=== PATIENT | female | born 1995 | race Caucasian/White ===

== ENCOUNTER 2018-08-02 21:28 | Emergency (ER) | payer OTHER ==
[2018-08-02] MEDS ORDERED: ONDANSETRON 4 MG/2 ML VIAL IVP STA (21:33)
[2018-08-02] MEDS ORDERED: FAMOTIDINE 20 MG/2 ML VIAL IV STA (21:33)
[2018-08-02] MEDS ORDERED: diphenhydrAMINE 50 MG/ML 1 ML VIAL IVP STA (21:33)
[2018-08-02] MEDS ORDERED: methylPREDNISolone SOD SUCCI 125 MG/2 ML VIAL IV STA (21:33)
[2018-08-02] MEDS ORDERED: EPINEPHrine 1 MG/ML 1 ML AMP IM STA (21:34)
[2018-08-02] MEDS ORDERED: ALBUTEROL NEBULIZED 2.5 MG/3 ML INHALATION STA (21:36)
--- NOTE | 2018-08-02 21:47 | ED ---
Allergic Reaction HPI - General Stated complaint: Severe allergic reaction Time Seen by Provider: 08/02/18 21:32 - History of Present Illness Initial Comments: Angeles is a 23-year-old female with a known ALLERGY to coconut who presents the emergency department today for evaluation of ALLERGIC reaction. Patient reports that this evening she ate at [employer] she then returned home and began to feel ill. She reports feeling like her throat is closing I she can't breathe and she's having repeated episodes of nausea and vomiting. Patient reports she took oral Benadryl and then came to the emergency department for further evaluation. Patient does have an EpiPen at home but is so she chose not to attempt to use it. - Related Data Home Medications Medication Instructions Recorded Confirmed Albuterol Inhaler [Ventolin Hfa 2 puff INHALATION RT-Q6H 08/02/18 08/02/18 Inhaler] Albuterol Nebulized [Ventolin 2.5 mg INHALATION RT-Q4H PRN 08/02/18 08/02/18 Nebulized] Ascorbic Acid [Vitamin C] 500 mg PO DAILY 08/02/18 08/02/18 Calcium Carbonate [Tums] 1,000 mg PO TID 08/02/18 08/02/18 Cetirizine HCl 10 mg PO DAILY 08/02/18 08/02/18 Cholecalciferol [Vitamin D3] 1,000 unit PO DAILY 08/02/18 08/02/18 Cyanocobalamin (Vitamin B-12) 1,000 mcg PO DAILY 08/02/18 08/02/18 [Vitamin B-12] Fluticasone Nasal [place] [Flonase 1 spray EA NOSTRIL DAILY 08/02/18 08/02/18 Nasal [place]] Ipratropium Nebulized [Atrovent 0.5 mg INHALATION RT-Q6H PRN 08/02/18 08/02/18 Nebulized 0.2 MG/ML] Montelukast [Singulair] 10 mg PO DAILY 08/02/18 08/02/18 Vilazodone HCl [Viibryd] 20 mg PO BID 08/02/18 08/02/18 Previous Rx's Medication Instructions Recorded EPINEPHrine [Epipen 2-Jeffery] 0.3 mg IM ONCE PRN #1 pack 08/03/18 Allergies Allergy/AdvReac Type Severity Reaction Status Date / Time ciprofloxacin [From Cipro] Allergy Rash/Hives Verified 08/02/18 21:50 coconut Allergy Anaphylaxis Verified 08/02/18 21:50 ibuprofen [From Motrin] Allergy Anaphylaxis Verified 08/02/18 21:50 Iodinated Contrast- Oral and Allergy Unknown Verified 08/02/18 22:26 IV Dye latex Allergy Unknown Verified 08/02/18 22:26 mold Allergy Unknown Verified 08/02/18 22:26 Mushroom Allergy Rash/Hives Verified 08/02/18 21:50 pollen extracts Allergy Unknown Verified 08/02/18 22:26 tomato Allergy Anaphylaxis Verified 08/02/18 21:50 Review of Systems ROS Statement: Those systems with pertinent positive or pertinent negative responses have been documented in the HPI. ROS Other: All systems not noted in ROS Statement are negative. General Exam - General Exam Comments Initial Comments: Physical Exam GENERAL: Flushed appearance actively vomiting patient in moderate distress HENT: Normocephalic, Atraumatic. EYES: PERRL, EOMI PULMONARY: Tachypnea with no wheezing CARDIOVASCULAR: Tachycardia ABDOMEN: Soft and nontender with normal bowel sounds. SKIN: Flushed, sweaty : Deferred NEUROLOGIC: Patient is alert and oriented x3. Moving all extremities spontaneously MUSCULOSKELETAL: Normal extremities with adequate strength and full range of motion. No lower extremity swelling or edema. No calf tenderness. PSYCHIATRIC: Situational anxiety Course Vital Signs 08/02/18 08/02/18 08/02/18 21:44 22:05 22:21 Temperature 98.9 F Pulse Rate 138 H 108 H Respiratory 26 H 26 H 22 Rate Blood Pressure 127/100 133/60 O2 Sat by Pulse 100 99 Oximetry 08/02/18 08/03/18 23:15 00:28 Temperature Pulse Rate 103 H 112 H Respiratory 22 20 Rate Blood Pressure O2 Sat by Pulse 98 99 Oximetry - Reevaluation(s) Reevaluation #1: Patient with recurrent episodes of nausea and vomiting, IV Reglan was ordered 08/03/18 00:19 Medical Decision Making - Medical Decision Making The patient was seen and evaluated immediately upon arrival to the emergency department this is a patient with a known ALLERGY having an ALLERGIC reaction she's having multiple bouts of vomiting her skin is flushed she's taken up neck and tachycardic reports she feels as though she can't breathe there is no obviou s wheezing. Treatment for anaphylaxis was ordered including sign Medrol, Pepcid, Benadryl and epinephrine. Patient had taken Benadryl prior to coming in however she continues to vomit and I have suspicion that she was unable to absorb any significant dose of this medication. Patient rested comfortably for approximately 2-1/2 hours before having recurrent episode of nausea and vomiting at which time she was given Reglan. Patient was observed for an additional 2 hours at which time she rested comfortably hemodynamically stable with no further episodes of tachycardia and no further nausea or vomiting. At this time patient is comfortable and eager for discharge home. Disposition Clinical Impression: Allergic reaction Disposition: HOME SELF-CARE Condition: Stable Instructions (If sedation given, give patient instructions): Anaphylaxis (ED) Prescriptions: EPINEPHrine [Epipen 2-Jeffery] 0.3 mg IM ONCE PRN #1 pack PRN Reason: Anaphylaxis Is patient prescribed a controlled substance at d/c from ED?: No Referrals: None,Stated [Primary Care Provider] - 1-2 days
[2018-08-03] MEDS ORDERED: METOCLOPRAMIDE 5 MG/ML 2 ML VIAL IVP STA (00:19)
[2018-08-03 02:17] VITALS: BP 130/65; PULSE 78; RESP 18; TEMP 97.9
== END 2018-08-03 02:17 | disposition home or self-care (01) ==
LOC: EC 21:28
DX: R11.2 Nausea with vomiting, unspecified (principal); T78.1XXA Other adverse food reactions, not elsewhere classified, initial encounter; R00.0 Tachycardia, unspecified; Z79.899 Other long term (current) drug therapy; Z88.1 Allergy status to other antibiotic agents; Z88.6 Allergy status to analgesic agent; Z91.041 Radiographic dye allergy status; Z91.018 Allergy to other foods; Z91.040 Latex allergy status; Z91.048 Other nonmedicinal substance allergy status; Z53.8 Procedure and treatment not carried out for other reasons
CPT/HCPCS: 99283; 96374; 96375 ×4; 96372; J0171; J1200; J2765; J2930; J2405

== ENCOUNTER 2018-11-25 20:32 | Emergency (ER) | payer OTHER ==
[2018-11-25 20:44] VITALS: TEMP 99.1
[2018-11-25] MEDS ORDERED: ALBUTEROL NEBULIZED 2.5 MG/3 ML INHALATION STA ×3 (21:06→23:03)
[2018-11-25] MEDS ORDERED: SODIUM CHLORIDE 0.9% 1,000 ML IV ONE ×2 (21:06→21:57)
[2018-11-25] MEDS ORDERED: PROMETHAZINE 25 MG TAB PO STA (21:10)
--- NOTE | 2018-11-25 21:15 | ED ---
General Adult HPI - General Chief complaint: Shortness of Breath Stated complaint: SOB, chest pain, headache Time Seen by Provider: 11/25/18 20:50 Source: patient Mode of arrival: ambulatory Limitations: no limitations - History of Present Illness Initial comments: This patient is 23-year-old woman who complains of a constellation of upper respiratory symptoms that have been going on she states for 16 days now. Patient states initially she had started with some upper respiratory congestion and rhinorrhea. She states that about a week ago she noticed she was feeling like there was chest tightness and she was having some yellow to green sputum with cough. She has seen her implementation engineer and her primary physician. She states that she saw the primary physician today and started azithromycin but that was only taken earlier today. She is also using her home inhalers and Tylenol for the intermittent fevers that she is had. Patient is tolerating fluids but states that her appetite is decreased. The review of systems is otherwise negative. Onset/Timin -: days(s) Location: head, chest Quality: other (Pressure) Consistency: constant Improves with: none Worsens with: none Associated Symptoms: cough, fever/chills, headaches, shortness of breath Treatments Prior to Arrival: other (Azithromycin, albuterol, Tylenol) - Related Data Home Medications Medication Instructions Recorded Confirmed Albuterol Inhaler [Ventolin Hfa 2 puff INHALATION RT-Q6H PRN 08/02/18 11/25/18 Inhaler] Albuterol Nebulized [Ventolin 2.5 mg INHALATION RT-Q4H PRN 08/02/18 11/25/18 Nebulized] Cetirizine HCl 10 mg PO DAILY 08/02/18 11/25/18 Previous Rx's Medication Instructions Recorded Albuterol Inhaler [Ventolin Hfa 1 - 2 puff INHALATION Q6HR PRN #1 11/26/18 Inhaler] inhaler Promethazine [Phenergan] 25 mg PO Q6HR PRN #12 tablet 11/26/18 predniSONE 20 mg PO BID #8 tab 11/26/18 Allergies Allergy/AdvReac Type Severity Reaction Status Date / Time banana Allergy Nausea & Verified 11/25/18 20:51 Vomiting ciprofloxacin [From Cipro] Allergy Rash/Hives Verified 11/25/18 20:51 coconut Allergy Anaphylaxis Verified 11/25/18 20:51 ibuprofen [From Motrin] Allergy Anaphylaxis Verified 11/25/18 20:51 Iodinated Contrast- Oral and Allergy Unknown Verified 11/25/18 20:51 IV Dye latex Allergy Unknown Verified 11/25/18 20:51 mold Allergy Unknown Verified 11/25/18 20:51 Mushroom Allergy Rash/Hives Verified 11/25/18 20:51 orange Allergy Nausea & Verified 11/25/18 20:51 Vomiting pollen extracts Allergy Unknown Verified 11/25/18 20:51 tomato Allergy Anaphylaxis Verified 11/25/18 20:51 cephalexin [From Keflex] AdvReac Rash/Hives Verified 11/25/18 20:51 Review of Systems ROS Statement: Those systems with pertinent positive or pertinent negative responses have been documented in the HPI. ROS Other: All systems not noted in ROS Statement are negative. Constitutional: Reports: fever. Denies: chills ENT: Reports: ear pain, throat pain, congestion. Denies: hearing loss Respiratory: Reports: cough, dyspnea, wheezes. Denies: hemoptysis Cardiovascular: Denies: chest pain, palpitations, edema, syncope Gastrointestinal: Denies: abdominal pain, nausea, vomiting, constipation Genitourinary: Denies: dysuria, hematuria Musculoskeletal: Denies: back pain Skin: Denies: rash Neurological: Reports: headache. Denies: weakness, numbness, paresthesias Past Medical History Additional Past Medical History / Comment(s): bilateral breast reduction History of Any Multi-Drug Resistant Organisms: None Reported Past Surgical History: Ear Surgery Past Psychological History: Bipolar Smoking Status: Never smoker Past Alcohol Use History: None Reported Past Drug Use History: None Reported General Exam Limitations: no limitations General appearance: alert, in no apparent distress Head exam: Present: atraumatic, normocephalic Eye exam: Present: normal appearance. Absent: scleral icterus, conjunctival injection ENT exam: Present: normal oropharynx (Cobblestoning), TM's normal bilaterally, normal external ear exam Neck exam: Present: normal inspection, full ROM, lymphadenopathy. Absent: tenderness, meningismus Respiratory exam: Present: wheezes, chest wall tenderness. Absent: respiratory distress, rales, rhonchi, stridor, accessory muscle use, decreased breath sounds, prolonged expiratory Cardiovascular Exam: Present: regular rate, normal rhythm, normal heart sounds. Absent: systolic murmur, diastolic murmur, rubs, gallop GI/Abdominal exam: Present: soft. Absent: distended, tenderness, guarding, rebound, rigid Extremities exam: Present: normal inspection, normal capillary refill. Absent: pedal edema, calf tenderness Back exam: Present: normal inspection. Absent: CVA tenderness (R), CVA tenderness (L) Neurological exam: Present: alert Skin exam: Present: warm, dry, intact, normal color. Absent: rash Course Vital Signs 11/25/18 11/25/18 11/25/18 20:42 21:29 21:38 Temperature 99.1 F Pulse Rate 120 H 113 H 115 H Respiratory 28 H 20 20 Rate Blood Pressure 145/86 O2 Sat by Pulse 98 Oximetry 11/25/18 11/25/18 11/25/18 22:15 22:24 23:20 Temperature Pulse Rate 88 90 105 H Respiratory 20 20 20 Rate Blood Pressure O2 Sat by Pulse Oximetry 11/25/18 11/26/18 23:31 01:02 Temperature Pulse Rate 100 94 Respiratory 20 18 Rate Blood Pressure 118/64 O2 Sat by Pulse 97 Oximetry Medical Decision Making - Lab Data Result diagrams: 11/25/18 21:30 11/25/18 21:30 Lab Results 11/25/18 11/25/18 Range/Units 21:30 21:30 WBC 14.8 H (3.8-10.6) k/uL RBC 4.46 (3.80-5.40) m/uL Hgb 12.7 (11.4-16.0) gm/dL Hct 37.0 (34.0-46.0) % MCV 82.9 (80.0-100.0) fL MCH 28.6 (25.0-35.0) pg MCHC 34.5 (31.0-37.0) g/dL RDW 12.7 (11.5-15.5) % Plt Count 305 (150-450) k/uL Neutrophils % 68 % Lymphocytes % 24 % Monocytes % 4 % Eosinophils % 4 % Basophils % 0 % Neutrophils # 10.0 H (1.3-7.7) k/uL Lymphocytes # 3.5 (1.0-4.8) k/uL Monocytes # 0.5 (0-1.0) k/uL Eosinophils # 0.5 (0-0.7) k/uL Basophils # 0.1 (0-0.2) k/uL Sodium 137 (137-145) mmol/L Potassium 3.4 L (3.5-5.1) mmol/L Chloride 107 (98-107) mmol/L Carbon Dioxide 19 L (22-30) mmol/L Anion Gap 11 mmol/L BUN 10 (7-17) mg/dL Creatinine 0.53 (0.52-1.04) mg/dL Est GFR (CKD-EPI)AfAm >90 (>60 ml/min/1.73 sqM) Est GFR (CKD-EPI)NonAf >90 (>60 ml/min/1.73 sqM) Glucose 115 H (74-99) mg/dL Calcium 9.3 (8.4-10.2) mg/dL Total Bilirubin 0.4 (0.2-1.3) mg/dL AST 15 (14-36) U/L ALT 14 (9-52) U/L Alkaline Phosphatase 65 (38-126) U/L Total Protein 6.8 (6.3-8.2) g/dL Albumin 3.8 (3.5-5.0) g/dL Disposition Clinical Impression: Acute bronchitis Disposition: HOME SELF-CARE Condition: Good Instructions (If sedation given, give patient instructions): Acute Bronchitis (ED) Prescriptions: Promethazine [Phenergan] 25 mg PO Q6HR PRN #12 tablet PRN Reason: Vomiting predniSONE 20 mg PO BID #8 tab Albuterol Inhaler [Ventolin Hfa Inhaler] 1 - 2 puff INHALATION Q6HR PRN #1 inhaler PRN Reason: Wheezing Is patient prescribed a controlled substance at d/c from ED?: No Referrals: Arron Khan MD [Primary Care Provider] - 1-2 days
[2018-11-25 21:39] LABS: Basophils # (A) 0.1 k/uL (0-0.2); Basophils % (A) 0 %; Eosinophils # (A) 0.5 k/uL (0-0.7); Eosinophils % (A) 4 %; HGB 12.7 gm/dL (11.4-16.0); Lymphocytes # (A) 3.5 k/uL (1.0-4.8); Lymphocytes % (A) 24 %; MCH 28.6 pg (25.0-35.0); MCHC 34.5 g/dL (31.0-37.0); MCV 82.9 fL (80.0-100.0); Mean Platelet Volume 7.2; Monocytes # (A) 0.5 k/uL (0-1.0); Monocytes % (A) 4 %; Neutrophils % (A) 68 %; Platelet Count 305 k/uL (150-450); RBC 4.46 m/uL (3.80-5.40); RDW 12.7 % (11.5-15.5); WBC 14.8 k/uL (3.8-10.6)
[2018-11-25 21:50] LABS: ALT 14 U/L (9-52); AST 15 U/L (14-36); African American GFR (CKD) >90 (>60 ml/min/1.73 sqM); Albumin 3.8 g/dL (3.5-5.0); Alkaline Phosphatase 65 U/L (38-126); Anion Gap 11 mmol/L; Blood Urea Nitrogen 10 mg/dL (7-17); Calcium 9.3 mg/dL (8.4-10.2); Carbon Dioxide 19 mmol/L (22-30); Chloride 107 mmol/L (98-107); Glucose 115 mg/dL (74-99); Potassium 3.4 mmol/L (3.5-5.1); Sodium 137 mmol/L (137-145); Total Bilirubin 0.4 mg/dL (0.2-1.3); Total Protein 6.8 g/dL (6.3-8.2)
[2018-11-25] MEDS ORDERED: ACETAMINOPHEN TAB 325 MG TAB PO STA (21:56)
[2018-11-25] MEDS ORDERED: predniSONE 20 MG TAB PO STA (23:03)
[2018-11-26 03:14] VITALS: BP 110/74; PULSE 72; RESP 16
== END 2018-11-26 03:14 | disposition home or self-care (01) ==
LOC: EC 20:32
DX: J20.9 Acute bronchitis, unspecified (principal); Z88.1 Allergy status to other antibiotic agents; Z88.6 Allergy status to analgesic agent; Z91.018 Allergy to other foods; Z91.040 Latex allergy status; Z91.041 Radiographic dye allergy status; Z91.048 Other nonmedicinal substance allergy status
CPT/HCPCS: 36415; 94640 ×2; 80053; 85025; 99285; 96360; 96361; J7512

== ENCOUNTER 2019-01-02 18:44 | Inpatient (IN) | payer MEDICAID, OTHER ==
[2019-01-02 19:32] LABS: Glucose,Whole Blood 108 mg/dL (75-99)
[2019-01-02] MEDS ORDERED: PRENATAL VIT-IRON-FOLIC ACID 1 EACH CAP PO STA (20:08)
--- NOTE | 2019-01-02 20:15 | ED ---
General Adult HPI - General Chief complaint: Psychiatric Symptoms Stated complaint: Suicidal Time Seen by Provider: 01/02/19 19:10 Source: patient Mode of arrival: ambulatory Limitations: no limitations - History of Present Illness Initial comments: Dictation was produced using [employer] dictation software. please excuse any grammatical, word or spelling errors. Chief Complaint: 23-year-old female with past medical history of bipolar disease presents with suicidal attempt and ideation. History of Present Illness: 23-year-old female she is allegedly 18 weeks . She reports that today she was feeling very suicidal. She is depressed with the fact that she is and that her pain is not one venous well. Patient states she has a difficult time taking care of herself and does not want to live anymore. She had a scalpel and made multiple superficial cuts to her wrist. She was initially given a card her face however she did not have encouraged do so. Patient has had suicidal ideation in the past. She has been evaluated in the hospital for suicide before as a minor. The ROS documented in this emergency department record has been reviewed and confirmed by me. Those systems with pertinent positive or negative responses have been documented in the HPI. All other systems are other negative and/or noncontributory. PHYSICAL EXAM: General Impression: Alert and oriented x3, not in acute distress HEENT: Normocephalic atraumatic, extra-ocular movements intact, pupils equal and reactive to light bilaterally, mucous membranes moist. Cardiovascular: Heart regular rate and rhythm, S1&S2 audible, no murmurs, rubs or gallops Chest: Lungs clear to auscultation bilaterally, no rhonchi, no wheeze, no rales Abdomen: Bowel sounds present, abdomen soft, non-tender, non-distended, no organomegaly Musculoskeletal: Pulses present and equal in all extremities, no peripheral edema Motor: no focal deficits noted Neurological: CN II-XII grossly intact, no focal motor or sensory deficits noted Skin: Superficial abrasions to the right posterior forearm Psych: Anxious ED course:-year-old female presents with suicidal ideation and suicidal attempt. She has multiple superficial abrasions to the right posterior lateral forearm. These all appear to be very superficial not requiring laceration repair. Lacerations measure approximately 3 cm. There are approximately 5 superficial cuts. Vital signs upon arrival shows heart rate of 129, respiratory signs within acceptable limits. Patient states she is 18 weeks . She has establish [employer] care. She takes vitamins. Patient was evaluated by EPS recommended inpatient admission to inpatient psychiatry. - Related Data Home Medications Medication Instructions Recorded Confirmed Albuterol Inhaler [Ventolin Hfa 2 puff INHALATION RT-Q6H PRN 08/02/18 01/02/19 Inhaler] Albuterol Nebulized [Ventolin 2.5 mg INHALATION RT-Q4H PRN 08/02/18 01/02/19 Nebulized] Multivitamins, Thera [Multivitamin 1 tab PO DAILY 01/02/19 01/02/19 (formulary)] Cetirizine HCl 10 mg PO DAILY 01/03/19 01/03/19 Fluticasone Nasal [place] [Flonase 1 spray NASAL BID 01/03/19 01/03/19 Nasal [place]] Allergies Allergy/AdvReac Type Severity Reaction Status Date / Time banana Allergy Nausea & Verified 01/02/19 19:57 Vomiting ciprofloxacin [From Cipro] Allergy Rash/Hives Verified 01/02/19 19:57 coconut Allergy Anaphylaxis Verified 01/02/19 19:57 ibuprofen [From Motrin] Allergy Anaphylaxis Verified 01/02/19 19:57 Iodinated Contrast- Oral and Allergy Unknown Verified 01/02/19 19:57 IV Dye latex Allergy Unknown Verified 01/02/19 19:57 mold Allergy Unknown Verified 01/02/19 19:57 Mushroom Allergy Rash/Hives Verified 01/02/19 19:57 orange Allergy Nausea & Verified 01/02/19 19:57 Vomiting pollen extracts Allergy Unknown Verified 01/02/19 19:57 tomato Allergy Anaphylaxis Verified 01/02/19 19:57 cephalexin [From Keflex] AdvReac Rash/Hives Verified 01/02/19 19:57 Review of Systems ROS Statement: Those systems with pertinent positive or pertinent negative responses have been documented in the HPI. ROS Other: All systems not noted in ROS Statement are negative. Past Medical History Additional Past Medical History / Comment(s): gestational diabetes History of Any Multi-Drug Resistant Organisms: None Reported Past Surgical History: Ear Surgery Additional Past Surgical History / Comment(s): bilat breast reduction Past Psychological History: Bipolar Smoking Status: Never smoker Past Alcohol Use History: None Reported Past Drug Use History: None Reported General Exam Limitations: no limitations Course Vital Signs 01/02/19 01/02/19 18:53 19:35 Temperature 98.9 F Pulse Rate 129 H 121 H Respiratory 18 20 Rate Blood Pressure 137/91 127/80 O2 Sat by Pulse 99 98 Oximetry Medical Decision Making - Lab Data Lab Results 01/02/19 01/02/19 01/02/19 Range/Units 10:33 10:33 19:30 POC Glucose (mg/dL) 108 H (75-99) mg/dL POC Glu Track Repair Supervisor ID Sarah Beth León Urine Color Yellow Urine Appearance Turbid H (Clear) Urine pH 6.0 (5.0-8.0) Ur Specific [place] 1.013 (1.001-1.035) Urine Protein Trace H (Negative) Urine Glucose (UA) Negative (Negative) Urine Ketones Negative (Negative) Urine Blood Trace H (Negative) Urine Nitrite Negative (Negative) Urine Bilirubin Negative (Negative) Urine Urobilinogen <2.0 (<2.0) mg/dL Ur Leukocyte Esterase Large H (Negative) Urine RBC 9 H (0-5) /hpf Urine WBC 144 H (0-5) /hpf Ur Squamous Epith Cells 32 H (0-4) /hpf Urine Mucus Occasional H (None) /hpf Urine HCG, Qual Detected (Not Detectd) Disposition Clinical Impression: Suicidal ideation Disposition: ADMITTED IP TO THIS [facility] Condition: Fair Decision Time: 02:29
[2019-01-02] MEDS ORDERED: ACETAMINOPHEN TAB 325 MG TAB PO STA (21:41)
[2019-01-02 22:48] LABS: Appearance,Urine Turbid (Clear); Bilirubin,Urine Negative (Negative); Blood,Urine Trace (Negative); Color,Urine Yellow; Glucose,Urine (UA) Negative (Negative); Ketones,Urine Negative (Negative); Leukocyte Esterase,Urine Large (Negative); Mucus,Urine Occasional /hpf; Nitrite,Urine Negative (Negative); Protein,Urine Trace (Negative); RBC,Urine 9 /hpf (0-5); Specific Gravity,Urine 1.013 (1.001-1.035); Squamous Epithelial Cell,Urine 32 /hpf (0-4); Urobilinogen,Urine <2.0 mg/dL (<2.0); WBC,Urine 144 /hpf (0-5)
[2019-01-03] MEDS: ALBUTEROL INHALER 60 PUFF/8 GM INHALER INHALATION PRN ×3 (00:20→20:19)
[2019-01-03 03:55] LABS: Amphetamine Screen,Urine Not Detected (NotDetected); Barbiturate Screen,Urine Not Detected (NotDetected); Benzodiazepines Screen,Urine Not Detected (NotDetected); Cocaine Screen,Urine Not Detected (NotDetected); Methadone Screen, Urine Not Detected (NotDetected); Opiate Screen,Urine Not Detected (NotDetected); Oxycodone Screen, Urine Not Detected (NotDetected); Phencyclidine Screen,Urine Not Detected (NotDetected); Tricyclic Antidepressant,Urine Not Detected (NotDetected); Urn Cannabinoid Scrn Not Detected (NotDetected)
[2019-01-03 08:09] LABS: Glucose,Whole Blood 116 mg/dL (75-99)
[2019-01-03 08:10] LABS: Basophils # (A) 0.1 k/uL (0-0.2); Basophils % (A) 1 %; Eosinophils # (A) 0.5 k/uL (0-0.7); Eosinophils % (A) 3 %; HCT 34.2 % (34.0-46.0); HGB 11.7 gm/dL (11.4-16.0); Lymphocytes # (A) 2.6 k/uL (1.0-4.8); Lymphocytes % (A) 19 %; MCH 28.7 pg (25.0-35.0); MCHC 34.2 g/dL (31.0-37.0); MCV 83.9 fL (80.0-100.0); Mean Platelet Volume 7.4; Monocytes # (A) 0.6 k/uL (0-1.0); Monocytes % (A) 4 %; Neutrophils # (A) 10.2 k/uL (1.3-7.7); Neutrophils % (A) 73 %; Platelet Count 252 k/uL (150-450); RBC 4.07 m/uL (3.80-5.40); RDW 13.2 % (11.5-15.5); WBC 14.1 k/uL (3.8-10.6)
[2019-01-03] MEDS: ACETAMINOPHEN TAB 325 MG TAB PO PRN ×3 (08:14→21:38)
[2019-01-03 08:17] LABS: ALT 14 U/L (9-52); AST 16 U/L (14-36); African American GFR (CKD) >90 (>60 ml/min/1.73 sqM); Albumin 3.5 g/dL (3.5-5.0); Alkaline Phosphatase 62 U/L (38-126); Anion Gap 9 mmol/L; Blood Urea Nitrogen 7 mg/dL (7-17); Carbon Dioxide 26 mmol/L (22-30); Chloride 104 mmol/L (98-107); Cholesterol 159 mg/dL (<200); Glucose 104 mg/dL (74-99); HDL Cholesterol 37 mg/dL (40-60); LDL Cholesterol,Calculated 81 mg/dL (0-99); Potassium 3.9 mmol/L (3.5-5.1); Sodium 139 mmol/L (137-145); Total Bilirubin 0.3 mg/dL (0.2-1.3); Total Protein 6.4 g/dL (6.3-8.2); Triglycerides 206 mg/dL (<150)
[2019-01-03 10:00] LABS: Glucose,Whole Blood 143 mg/dL (75-99)
[2019-01-03 10:32] VITALS: BMI 33.5
[2019-01-03] MEDS: ALBUTEROL NEBULIZED 2.5 MG/3 ML INHALATION PRN (12:19)
[2019-01-03 12:34] LABS: Glucose,Whole Blood 139 mg/dL (75-99)
[2019-01-03] MEDS: PRENATAL VIT-IRON-FOLIC ACID 1 EACH CAP PO SCH (12:35)
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
[2019-01-03] MEDS ORDERED: FLUTICASONE 50MCG/SPRAY NASAL 16GM NASAL SCH (13:45)
[2019-01-03] MEDS ORDERED: MULTIVITAMINS, THERA 1 EACH TAB PO SCH (13:45)
[2019-01-03 13:59] LABS: Hemoglobin A1C 5.7 % (4.0-6.0)
[2019-01-03] MEDS: LORATADINE 10 MG TAB PO SCH (14:53)
[2019-01-03] MEDS: SERTRALINE 50 MG TAB PO SCH (14:53)
[2019-01-03 15:35] LABS: Glucose,Whole Blood 109 mg/dL (75-99)
[2019-01-03 17:44] LABS: Glucose,Whole Blood 110 mg/dL (75-99)
[2019-01-03 20:17] LABS: Glucose,Whole Blood 111 mg/dL (75-99)
[2019-01-03] MEDS: QUEtiapine 25 MG TAB PO SCH (21:37)
[2019-01-04] MEDS: ALBUTEROL INHALER 60 PUFF/8 GM INHALER INHALATION PRN (07:02)
--- NOTE | 2019-01-04 07:10 | P.OBCN ---
History of Present Illness Consult date: 01/04/19 Reason for consult: early problem Chief complaint: Depression with suicidal ideation at 19 weeks gestation History of present illness: This is a 23-year-old 4 para 0030 woman with an estimated due date of 06/06/2019 who is admitted to the psychiatric unit for suicidal ideations and self. She has a history of bipolar disorder and self discontinued her medications early in her . Since that time she reports she's been feeling worse and worse as the weeks go by. Her current living situation is difficult which she believes is the source of her current ongoing stress. The has been essentially otherwise uncomplicated. She had an elevated hemoglobin A1c of 5.8 and has been monitoring home blood sugars to determine if she is gestational diabetic. She is currently on no specific diet or treatment for gestational diabetes, only monitoring and data collection at this time. She complains of intermittent nausea and vomiting throughout the thus far. She denies bleeding, abdominal pain, dysuria. Currently she reports feeling "stressed" however denies specific thoughts of self-harm at this moment. She has been started on Seroquel and Zoloft, both of which are category C. She has a Ventolin inhaler for asthma. Review of Systems Constitutional: Denies chills, Denies fever Cardiovascular: Denies chest pain, Denies rapid heart beat, Denies shortness of breath Respiratory: Denies cough Gastrointestinal: Reports nausea, Reports vomiting, Denies abdominal pain, Denies constipation, Denies diarrhea, Denies heartburn Genitourinary: Reports , Denies abnormal vaginal bleeding, Denies dysuria, Denies flank pain, Denies hematuria, Denies urgency, Denies urinary frequency Musculoskeletal: Reports low back pain Integumentary: Denies rash Psychiatric: Reports anxiety, Reports depression, Reports sleep disturbances Endocrine: Denies high blood sugars Past Medical History Past Medical History: Asthma Additional Past Medical History / Comment(s): gestational diabetes History of Any Multi-Drug Resistant Organisms: None Reported Past Surgical History: Ear Surgery Additional Past Surgical History / Comment(s): bilat breast reduction Past Anesthesia/Blood Transfusion Reactions: No Reported Reaction Past Psychological History: Bipolar Smoking Status: Never smoker Past Alcohol Use History: None Reported Past Drug Use History: None Reported Medications and Allergies Home Medications Medication Instructions Recorded Confirmed Type Albuterol Inhaler [Ventolin Hfa 2 puff INHALATION RT-Q6H PRN 08/02/18 01/02/19 History Inhaler] Albuterol Nebulized [Ventolin 2.5 mg INHALATION RT-Q4H PRN 08/02/18 01/02/19 History Nebulized] Multivitamins, Thera [Multivitamin 1 tab PO DAILY 01/02/19 01/02/19 History (formulary)] Cetirizine HCl 10 mg PO DAILY 01/03/19 01/03/19 History Fluticasone Nasal [place] [Flonase 1 spray NASAL BID 01/03/19 01/03/19 History Nasal [place]] Allergies Allergy/AdvReac Type Severity Reaction Status Date / Time banana Allergy Nausea & Verified 01/02/19 19:57 Vomiting ciprofloxacin [From Cipro] Allergy Rash/Hives Verified 01/02/19 19:57 coconut Allergy Anaphylaxis Verified 01/02/19 19:57 ibuprofen [From Motrin] Allergy Anaphylaxis Verified 01/02/19 19:57 Iodinated Contrast- Oral and Allergy Unknown Verified 01/02/19 19:57 IV Dye latex Allergy Unknown Verified 01/02/19 19:57 mold Allergy Unknown Verified 01/02/19 19:57 Mushroom Allergy Rash/Hives Verified 01/02/19 19:57 orange Allergy Nausea & Verified 01/02/19 19:57 Vomiting pollen extracts Allergy Unknown Verified 01/02/19 19:57 tomato Allergy Anaphylaxis Verified 01/02/19 19:57 cephalexin [From Keflex] AdvReac Rash/Hives Verified 01/02/19 19:57 Exam Vital Signs Temp Pulse Pulse Resp BP 01/04/19 06:36 98.3 F 108 H 18 141/76 01/03/19 12:29 100 01/03/19 12:22 96 Intake and Output 01/03/19 01/03/19 01/04/19 14:59 22:59 06:59 Other: Weight 78.018 kg Entire encounter was spent in discussion, no specific physical examination is performed. Mood and affect appeared appropriate during her conversation. Results Result Diagrams: 01/03/19 07:12 01/03/19 07:12 Abnormal Lab Results - Last 24 Hours (Table) 01/03/19 01/03/19 01/03/19 Range/Units 07:12 07:12 08:07 WBC 14.1 H (3.8-10.6) k/uL Neutrophils # 10.2 H (1.3-7.7) k/uL Glucose 104 H (74-99) mg/dL POC Glucose (mg/dL) 116 H (75-99) mg/dL Triglycerides 206 H (<150) mg/dL HDL Cholesterol 37 L (40-60) mg/dL 01/03/19 01/03/19 01/03/19 Range/Units 09:58 12:32 15:34 WBC (3.8-10.6) k/uL Neutrophils # (1.3-7.7) k/uL Glucose (74-99) mg/dL POC Glucose (mg/dL) 143 H 139 H 109 H (75-99) mg/dL Triglycerides (<150) mg/dL HDL Cholesterol (40-60) mg/dL 01/03/19 01/03/19 Range/Units 17:43 20:14 WBC (3.8-10.6) k/uL Neutrophils # (1.3-7.7) k/uL Glucose (74-99) mg/dL POC Glucose (mg/dL) 110 H 111 H (75-99) mg/dL Triglycerides (<150) mg/dL HDL Cholesterol (40-60) mg/dL Assessment and Plan (1) with 14 to 19 completed weeks gestation Current Visit: Yes Status: Acute Code(s): UOD2519 - SNOMED Code(s): 28137242 (2) Nausea and vomiting during Current Visit: Yes Status: Acute Code(s): O21.9 - VOMITING OF , UNSPECIFIED SNOMED Code(s): 83076288 (3) Suicidal ideation Current Visit: Yes Status: Acute Code(s): R45.851 - SUICIDAL IDEATIONS SNOMED Code(s): 3734052 Plan: This is a 23-year-old 4 para 0030 woman with an estimated due date of 06/06/2021 is admitted for suicidal ideation at 19 weeks gestation. She is pre- viable. Current medications are category C which is appropriate. You can consider adding Zoloft 4 mg po every 8 hours when necessary for nausea. Her urinalysis is positive however I would await urine culture results before treating with antibiotics as the patient is asymptomatic at this time. She does not carry a formal diagnosis of gestational diabetes and a regular diet is appropriate. She is simply monitoring home blood sugars as she is been unable to tolerate typical glucose tolerance testing used in . After she collects this information for a couple weeks will be determined whether she meets criteria for gestational diabetes. Notify us if any random blood sugars are greater than 200. She is scheduled for an obstetric visit and ultrasound on 01/06/2019 in the office. Thank you for involving us in her care. Should she have any further questions regarding her management please do not hesitate to contact our service otherwise we will plan on seeing her as scheduled on the .
--- NOTE | 2019-01-04 07:11 | P.CONS ---
History of Present Illness - Reason for Consult Consult date: 01/03/19 Medical management of asthma - Chief Complaint Suicidal attempt - History of Present Illness 23-year-old female with history of asthma and seasonal ALLERGIES, she is allegedly 18 weeks , presented to ED feeling very suicidal. She is depressed with the fact that she is and that her pain is not one venous well. Patient states she has a difficult time taking care of herself and does not want to live anymore. She had a scalpel and made multiple superficial cuts to her wrist. She was initially given a card her face however she did not have encouraged do so. Patient has had suicidal ideation in the past. She has been evaluated in the hospital for suicide before as a minor. Patient is admitted to mental health unit for further treatment and evaluation of bipolar disorder and suicidal attempt and ideation Review of Systems Constitutional: Denies chills, Denies fever Eyes: denies blurred vision, denies loss of vision Ears, nose, mouth and throat: Denies epistaxis Cardiovascular: Denies chest pain Respiratory: Denies cough with sputum Gastrointestinal: Denies change in bowel habits, Denies nausea, Denies vomiting Genitourinary: Denies dysuria, Denies hematuria Musculoskeletal: Denies muscle cramps Integumentary: Denies color changes Neurological: Denies ataxia, Denies change in speech Past Medical History Past Medical History: Asthma Additional Past Medical History / Comment(s): gestational diabetes History of Any Multi-Drug Resistant Organisms: None Reported Past Surgical History: Ear Surgery Additional Past Surgical History / Comment(s): bilat breast reduction Past Anesthesia/Blood Transfusion Reactions: No Reported Reaction Past Psychological History: Bipolar Smoking Status: Never smoker Past Alcohol Use History: None Reported Past Drug Use History: None Reported Medications and Allergies Home Medications Medication Instructions Recorded Confirmed Type Albuterol Inhaler [Ventolin Hfa 2 puff INHALATION RT-Q6H PRN 08/02/18 01/02/19 History Inhaler] Albuterol Nebulized [Ventolin 2.5 mg INHALATION RT-Q4H PRN 08/02/18 01/02/19 History Nebulized] Multivitamins, Thera [Multivitamin 1 tab PO DAILY 01/02/19 01/02/19 History (formulary)] Cetirizine HCl 10 mg PO DAILY 01/03/19 01/03/19 History Fluticasone Nasal [place] [Flonase 1 spray NASAL BID 01/03/19 01/03/19 History Nasal [place]] Allergies Allergy/AdvReac Type Severity Reaction Status Date / Time banana Allergy Nausea & Verified 01/02/19 19:57 Vomiting ciprofloxacin [From Cipro] Allergy Rash/Hives Verified 01/02/19 19:57 coconut Allergy Anaphylaxis Verified 01/02/19 19:57 ibuprofen [From Motrin] Allergy Anaphylaxis Verified 01/02/19 19:57 Iodinated Contrast- Oral and Allergy Unknown Verified 01/02/19 19:57 IV Dye latex Allergy Unknown Verified 01/02/19 19:57 mold Allergy Unknown Verified 01/02/19 19:57 Mushroom Allergy Rash/Hives Verified 01/02/19 19:57 orange Allergy Nausea & Verified 01/02/19 19:57 Vomiting pollen extracts Allergy Unknown Verified 01/02/19 19:57 tomato Allergy Anaphylaxis Verified 01/02/19 19:57 cephalexin [From Keflex] AdvReac Rash/Hives Verified 01/02/19 19:57 Physical Exam Vitals: Vital Signs Temp Pulse Pulse Resp BP BP Pulse Ox 01/03/19 06:46 98.9 F 94 16 129/72 01/03/19 01:52 98.9 F 94 16 129/72 98 01/03/19 00:25 99.1 F 106 H 20 133/84 01/02/19 22:40 98.5 F 98 18 130/81 96 01/02/19 19:35 121 H 20 127/80 98 01/02/19 18:53 98.9 F 129 H 18 137/91 99 Intake and Output 01/02/19 01/03/19 01/03/19 22:59 06:59 14:59 Other: Weight 78.018 kg General Impression: Alert and oriented x3, not in acute distress HEENT: Normocephalic atraumatic, extra-ocular movements intact, pupils equal and reactive to light bilaterally, mucous membranes moist. Cardiovascular: Heart regular rate and rhythm, S1&S2 audible, no murmurs, rubs or gallops Chest: Lungs clear to auscultation bilaterally, no rhonchi, no wheeze, no rales Abdomen: Bowel sounds present, abdomen soft, non-tender, non-distended, no o rganomegaly Musculoskeletal: Pulses present and equal in all extremities, no peripheral edema Motor: no focal deficits noted Neurological: CN II-XII grossly intact, no focal motor or sensory deficits noted Skin: Superficial abrasions to the right posterior forearm Psych: Anxious Results CBC & Chem 7: 01/03/19 07:12 01/03/19 07:12 Labs: Abnormal Lab Results - Last 24 Hours (Table) 01/02/19 01/02/19 01/03/19 Range/Units 10:33 19:30 07:12 WBC 14.1 H (3.8-10.6) k/uL Neutrophils # 10.2 H (1.3-7.7) k/uL Glucose (74-99) mg/dL POC Glucose (mg/dL) 108 H (75-99) mg/dL Triglycerides (<150) mg/dL HDL Cholesterol (40-60) mg/dL Urine Appearance Turbid H (Clear) Urine Protein Trace H (Negative) Urine Blood Trace H (Negative) Ur Leukocyte Esterase Large H (Negative) Urine RBC 9 H (0-5) /hpf Urine WBC 144 H (0-5) /hpf Ur Squamous Epith Cells 32 H (0-4) /hpf Urine Mucus Occasional H (None) /hpf 01/03/19 01/03/19 01/03/19 Range/Units 07:12 08:07 09:58 WBC (3.8-10.6) k/uL Neutrophils # (1.3-7.7) k/uL Glucose 104 H (74-99) mg/dL POC Glucose (mg/dL) 116 H 143 H (75-99) mg/dL Triglycerides 206 H (<150) mg/dL HDL Cholesterol 37 L (40-60) mg/dL Urine Appearance (Clear) Urine Protein (Negative) Urine Blood (Negative) Ur Leukocyte Esterase (Negative) Urine RBC (0-5) /hpf Urine WBC (0-5) /hpf Ur Squamous Epith Cells (0-4) /hpf Urine Mucus (None) /hpf Assessment and Plan Assessment: 1. Asthma; we will continue with albuterol inhaler 2 puffs 4 times a day when necessary 2. Seasonal ALLERGY; reorder Flonase 1 spray both nostrils twice a day; patient requesting to continue with home dose of Zyrtec- ordered 3. Bipolar disorder/suicidal ideation and attempt; your management 4. ; per pattient she,s in second trimester; recommend RESEARCH EPIDEMIOLOGIST consult 5. DVT prophylaxis; early ambulation CODE STATUS; full code Time with Patient: Greater than 30
[2019-01-04 07:48] LABS: Glucose,Whole Blood 106 mg/dL (75-99)
[2019-01-04 09:31] LABS: Glucose,Whole Blood 128 mg/dL (75-99)
[2019-01-04] MEDS: ALBUTEROL NEBULIZED 2.5 MG/3 ML INHALATION PRN ×2 (11:38→23:51)
[2019-01-04] MEDS: SERTRALINE 50 MG TAB PO SCH (12:23)
[2019-01-04] MEDS: LORATADINE 10 MG TAB PO SCH (12:23)
[2019-01-04] MEDS: PRENATAL VIT-IRON-FOLIC ACID 1 EACH CAP PO SCH (12:23)
--- NOTE | 2019-01-04 12:23 | P.PN ---
Progress Note - Text Progress Note Date: 01/04/19 Interval History: Patient was seen in the hallways today and was agreeable to seek the underwriter. She states that she is doing better with regard to her anxiety and also her sleep. However she did state that last night there was commotion on the unit which woke her up and made her feel unsafe. She states that she is going to groups and learning more Coping skills. Patient presented papers with written requests for assistance with housing and [facility] along with financial matters that she is to take care of. She also asked about having her dog classified as a "therapy dog". At this time patient denies any suicidal or homical ideations, intent or plan. Patient denies any auditory, visual hallucinations and denies any paranoia or delusions. Patient denies any side effects from the medications and has been compliant with meds. Mental Status Exam: General Appearance: Patient appears to be stated age is alert, directable and cooperative. Patient appears to be less anxious today. Behavior: Patient is seated without any agitated behavior. Speech: Patient's speech is fluent and nonpressured. [place]. Mood/Affect: Patient reports their mood is depressed affect is congruent and constricted. Suicidality/Homicidality: Patient denies having any suicidal or homicidal ideation intent or plan. Perceptions: Patient denies any auditory or visual hallucinations. Though content/process: There is no evidence of any delusional thought content and thought process is linear and goal-directed. Memory and concentration: AOX3, grossly intact for the purposes of this session. Judgment and insight: Poor, improving mildly Assessment Bipolar disorder, mixed episode History of PTSD Intellectual disability unspecified Plan: -Patient continues to meet criteria for inpatient psychiatric admission for symptom stabilization and safety. The patient signed adult voluntary form and medication consent and is placed in the patient's chart. -Appreciate MERCHANDISING COORDINATOR recommendations and evaluation of patient. Her current medications are category C and this was explained to patient. Added in Zofran 4 mg every 8 hours when necessary for nausea as per MERCHANDISING COORDINATOR recommendations. As per recommendations will not treat asymptomatic bacteriuria and urine at this time. We'll continue monitoring blood glucose for gestational diabetes -Medications: Continue with Seroquel 25 mg daily at bedtime for mood stabilization/insomnia. We'll also continue Zoloft 50 mg for anxiety/mood. -NRT -not needed at this time as patient does not smoke. -SW on board for discharge planning. Patient does have a MERCHANDISING COORDINATOR appointment on 01/06/2019 for ultrasound and follow-up. Patient needs assisting with housing.
[2019-01-04 12:29] LABS: Glucose,Whole Blood 117 mg/dL (75-99)
[2019-01-04] MEDS: ACETAMINOPHEN TAB 325 MG TAB PO PRN (13:31)
[2019-01-04 14:56] LABS: Glucose,Whole Blood 135 mg/dL (75-99)
[2019-01-04 17:34] LABS: Glucose,Whole Blood 82 mg/dL (75-99)
[2019-01-04] MEDS: ONDANSETRON 4 MG TAB PO PRN (18:13)
[2019-01-04 20:11] LABS: Glucose,Whole Blood 115 mg/dL (75-99)
[2019-01-04 22:10] LABS: Glucose,Whole Blood 111 mg/dL (75-99)
[2019-01-04] MEDS: QUEtiapine 25 MG TAB PO SCH (22:40)
[2019-01-05 07:43] LABS: Glucose,Whole Blood 113 mg/dL (75-99)
[2019-01-05] MEDS: ALBUTEROL INHALER 60 PUFF/8 GM INHALER INHALATION PRN (09:01)
[2019-01-05] MEDS: ACETAMINOPHEN TAB 325 MG TAB PO PRN (10:32)
[2019-01-05 10:33] LABS: Glucose,Whole Blood 123 mg/dL (75-99)
--- NOTE | 2019-01-05 12:13 | P.PN ---
Progress Note - Text Progress Note Date: 01/05/19 Interval History: Patient was seen in group today today and was agreeable to seek the account underwriter. She states that she is continuing to have anxiety and claimed to be irritable because her sister claimed that she was not able to calm to the hospital to drop her off close and visit her which she did not like. She also mentioned that another patient on the unit who was recently discharged did not leave her the pack of cards that she really wanted and claims that "she broke her promise". However she did state that she slept better last night however requested to take her Seroquel at 10:00 instead of 9 PM as it makes her tired within a few minutes. She states that she is going to groups and learning more Coping skills. Patient asked brighter several times about her appointment tomorrow and how she wanted to visit her fianc in [facility]. At this time patient denies any suicidal or homical ideations, intent or plan. Patient denies any auditory, visual hallucinations and denies any paranoia or delusions. Patient denies any side effects from the medications and has been compliant with meds. Mental Status Exam: General Appearance: Patient appears to be stated age is alert, directable and cooperative. Patient appears to be anxious Behavior: Patient is seated without any agitated behavior. Speech: Patient's speech is fluent and nonpressured. [place]. Mood/Affect: Patient reports their mood is improved affect is congruent and constricted. Suicidality/Homicidality: Patient denies having any suicidal or homicidal ideation intent or plan. Perceptions: Patient denies any auditory or visual hallucinations. Though content/process: There is no evidence of any delusional thought content and thought process is linear and goal-directed. Memory and concentration: AOX3, grossly intact for the purposes of this session. Judgment and insight: Poor, improving mildly Assessment Bipolar disorder, mixed episode History of PTSD Intellectual disability unspecified Plan: -Patient continues to meet criteria for inpatient psychiatric admission for symptom stabilization and safety. The patient signed adult voluntary form and medication consent and is placed in the patient's chart. -Appreciate STREETSWEEPER OPERATOR recommendations and evaluation of patient. Her current medications are category C and this was explained to patient. Continue with Zofran 4 mg every 8 hours when necessary for nausea as per STREETSWEEPER OPERATOR recommendations. As per recommendations will not treat asymptomatic bacteriuria and urine at this time. We'll continue monitoring blood glucose for gestational diabetes -Medications: Continue with Seroquel 25 mg daily at bedtime for mood stabilization/insomnia. Increased Zoloft 100 mg for anxiety/mood. -NRT -not needed at this time as patient does not smoke. -SW on board for discharge planning. Patient does have a STREETSWEEPER OPERATOR appointment on 01/06/2019 for ultrasound and follow-up, this will need to be rescheduled. Patient needs assisting with housing. Likely discharge within 2-3 days.
[2019-01-05] MEDS: SERTRALINE 50 MG TAB PO SCH (12:20)
[2019-01-05] MEDS: LORATADINE 10 MG TAB PO SCH (12:21)
[2019-01-05] MEDS: PRENATAL VIT-IRON-FOLIC ACID 1 EACH CAP PO SCH (12:21)
[2019-01-05 12:33] LABS: Glucose,Whole Blood 115 mg/dL (75-99)
[2019-01-05 15:27] LABS: Glucose,Whole Blood 120 mg/dL (75-99)
[2019-01-05 17:50] LABS: Glucose,Whole Blood 91 mg/dL (75-99)
[2019-01-05 20:39] LABS: Glucose,Whole Blood 105 mg/dL (75-99)
[2019-01-05] MEDS: QUEtiapine 25 MG TAB PO SCH (23:05)
[2019-01-06] MEDS: ALBUTEROL NEBULIZED 2.5 MG/3 ML INHALATION PRN ×2 (00:42→11:50)
[2019-01-06 06:39] VITALS: BP 110/62; RESP 20; TEMP 98.8
[2019-01-06 07:50] LABS: Glucose,Whole Blood 117 mg/dL (75-99)
[2019-01-06] MEDS: LORATADINE 10 MG TAB PO SCH ×3 (08:41→16:30)
[2019-01-06] MEDS: PRENATAL VIT-IRON-FOLIC ACID 1 EACH CAP PO SCH ×3 (08:41→16:30)
[2019-01-06] MEDS: ONDANSETRON 4 MG TAB PO PRN ×2 (08:41→16:31)
[2019-01-06] MEDS: SERTRALINE 100 MG TAB PO SCH ×3 (08:41→16:30)
[2019-01-06 10:35] LABS: Glucose,Whole Blood 116 mg/dL (75-99)
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
[2019-01-06 12:40] LABS: Glucose,Whole Blood 106 mg/dL (75-99)
[2019-01-06 15:25] LABS: Glucose,Whole Blood 126 mg/dL (75-99)
[2019-01-06 17:41] LABS: Glucose,Whole Blood 93 mg/dL (75-99)
[2019-01-06] MEDS: ACETAMINOPHEN TAB 325 MG TAB PO PRN (19:59)
[2019-01-06 20:06] LABS: Glucose,Whole Blood 120 mg/dL (75-99)
[2019-01-06 22:47] LABS: Glucose,Whole Blood 97 mg/dL (75-99)
[2019-01-06] MEDS: QUEtiapine 25 MG TAB PO SCH (23:07)
[2019-01-07] MEDS: ALBUTEROL NEBULIZED 2.5 MG/3 ML INHALATION PRN (00:36)
[2019-01-07 00:51] VITALS: PULSE 72
[2019-01-07 07:46] LABS: Glucose,Whole Blood 105 mg/dL (75-99)
[2019-01-07] MEDS: ONDANSETRON 4 MG TAB PO PRN (08:11)
[2019-01-07] MEDS: ACETAMINOPHEN TAB 325 MG TAB PO PRN (08:11)
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
[2019-01-07] MEDS: PRENATAL VIT-IRON-FOLIC ACID 1 EACH CAP PO SCH (10:48)
[2019-01-07] MEDS: LORATADINE 10 MG TAB PO SCH (10:48)
[2019-01-07] MEDS: SERTRALINE 100 MG TAB PO SCH (10:48)
[2019-01-07 12:04] LABS: Glucose,Whole Blood 116 mg/dL (75-99)
== END 2019-01-07 12:42 | disposition home or self-care (01) | DRG 832 ==
LOC: EC 18:44 → 3MHU 22:02
PROVIDERS: ADMIT Psychiatry & Neurology Psychiatry; ATTEND Psychiatry & Neurology Psychiatry
DX: O99.342 Other mental disorders complicating pregnancy, second trimester (principal); F31.60 Bipolar disorder, current episode mixed, unspecified; O99.112 Other diseases of the blood and blood-forming organs and certain disorders involving the immune mechanism complicating pregnancy, second trimester; R45.851 Suicidal ideations; O99.352 Diseases of the nervous system complicating pregnancy, second trimester; O21.9 Vomiting of pregnancy, unspecified; F43.10 Post-traumatic stress disorder, unspecified; O99.512 Diseases of the respiratory system complicating pregnancy, second trimester; J45.909 Unspecified asthma, uncomplicated; D72.829 Elevated white blood cell count, unspecified; G47.00 Insomnia, unspecified; F79 Unspecified intellectual disabilities; G43.909 Migraine, unspecified, not intractable, without status migrainosus; R82.71 Bacteriuria; O75.89 Other specified complications of labor and delivery; F41.9 Anxiety disorder, unspecified; Z3A.19 19 weeks gestation of pregnancy; Z59.0 Homelessness; Z62.810 Personal history of physical and sexual abuse in childhood; Z79.899 Other long term (current) drug therapy; Z88.6 Allergy status to analgesic agent; Z88.1 Allergy status to other antibiotic agents; Z91.041 Radiographic dye allergy status; Z91.040 Latex allergy status; Z91.018 Allergy to other foods; Z81.8 Family history of other mental and behavioral disorders; Z81.1 Family history of alcohol abuse and dependence
CPT/HCPCS: 36415; 80053; 80061; 80306; 81001; 81025; 82075; 83036; 84443; 85025; 94640; 99285

== ENCOUNTER → 2019-02-28 | Outpatient (CLI) | payer OTHER ==
[2019-02-28 12:35] LABS: HCT 35.9 % (34.0-46.0); HGB 11.7 gm/dL (11.4-16.0); MCH 28.3 pg (25.0-35.0); MCHC 32.7 g/dL (31.0-37.0); MCV 86.7 fL (80.0-100.0); Mean Platelet Volume 7.3; Platelet Count 247 k/uL (150-450); RBC 4.14 m/uL (3.80-5.40); RDW 13.2 % (11.5-15.5); WBC 14.8 k/uL (3.8-10.6)
== END | disposition home or self-care (01) ==
LOC: LABWHC1 10:45
PROVIDERS: ATTEND Obstetrics & Gynecology Obstetrics
DX: Z36.9 Encounter for antenatal screening, unspecified (principal)
CPT/HCPCS: 36415; 82950; 85027

== ENCOUNTER 2019-03-02 13:49 | Outpatient (CLI) | payer OTHER ==
[2019-03-02] MEDS ORDERED: LACTATED RINGERS 1,000 ML IV SCH (15:15)
[2019-03-02 15:27] LABS: Glucose,Whole Blood 98 mg/dL (75-99)
[2019-03-02 15:41] VITALS: BP 135/71; PULSE 100; RESP 18; TEMP 97.8
[2019-03-02 15:56] LABS: ALT <6 U/L (9-52); AST 32 U/L (14-36); African American GFR (CKD) >90 (>60 ml/min/1.73 sqM); Albumin 3.9 g/dL (3.5-5.0); Alkaline Phosphatase 66 U/L (38-126); Anion Gap 9 mmol/L; Blood Urea Nitrogen 8 mg/dL (7-17); Calcium 9.2 mg/dL (8.4-10.2); Carbon Dioxide 20 mmol/L (22-30); Chloride 107 mmol/L (98-107); Glucose 89 mg/dL (74-99); Non-African American GFR(CKD) >90 (>60 ml/min/1.73 sqM); Sodium 136 mmol/L (137-145); Total Bilirubin 0.7 mg/dL (0.2-1.3); Total Protein 7.1 g/dL (6.3-8.2)
[2019-03-02 15:57] LABS: Potassium 4.6 mmol/L (3.5-5.1)
[2019-03-02 16:01] LABS: Amorphous Sediment,Urine Rare /hpf; Appearance,Urine Cloudy (Clear); Bilirubin,Urine Negative (Negative); Blood,Urine Negative (Negative); Color,Urine Yellow; Glucose,Urine (UA) Negative (Negative); Ketones,Urine Negative (Negative); Leukocyte Esterase,Urine Large (Negative); Mucus,Urine Rare /hpf; Nitrite,Urine Negative (Negative); PH, Urine 6.5 (5.0-8.0); Protein,Urine Negative (Negative); RBC,Urine 1 /hpf (0-5); Specific Gravity,Urine 1.019 (1.001-1.035); Squamous Epithelial Cell,Urine 3 /hpf (0-4); Urobilinogen,Urine <2.0 mg/dL (<2.0); WBC,Urine 8 /hpf (0-5)
--- NOTE | 2019-03-16 16:37 | P.MSEPDOC ---
Presenting Problems - Arrival Data Date of Arrival on Unit: 03/02/19 Time of Arrival on Unit: 13:50 Mode of Transport: Ambulatory - Complaint OB-Reason for Admission/Chief Complaint: Other Comment: charley horses in left leg, sacrum in low back and upper arms. Medical History - Information : 4 Para: 0 Term: 0 : 0 Abortions: Spontaneous or Elective: 3 Number of Living Children: 0 - Gestational Age Gestational Age by AMADEO (wks/days): 25 Weeks and 4 Days - History Complications: GDM Review of Systems - Review of Systems Constitutional: Recent weight loss Breast: No problems ENT: No problems Cardiovascular: No problems Respiratory: No problems Gastrointestinal: No problems Genitourinary: No problems Musculoskeletal: No problems Neurological: No problems Skin: No problems Comment: hx of gest diabetes (diet controlled), anemia, asthma, anxiety and depression, allergies to latex. lost 18 pounds this . Vital Signs - Temperature Temperature: 97.8 F Temperature Source: Temporal Artery Scan - Pulse Right Brachial Pulse Rate: 100 Pulse Assessment Method: Automatic Cuff - Respirations Respiratory Rate: 18 Oxygen Delivery Method: Room Air O2 Sat by Pulse Oximetry: 97 - Blood Pressure Right Arm Blood Pressure: 135/71 Blood Pressure Mean: 92 Blood Pressure Source: Automatic Cuff Medical Screen Scoring (Pre) - Cervical Exam Dilation: Exam Deferred - Uterine Contractions Frequency: N/A Duration: N/A Intensity: N/A - Maternal Vital Signs Maternal Temperature: N/A Maternal Blood Pressure: N/A Signs of Preeclampsia: N/A Maternal Respirations: N/A - Maternal Trauma Maternal Trauma: N/A - Assessment - Baby A Baseline FHR: 140 Heart Rate - NICHD Category: Category I (Normal) = 0 NST: Reactive Position: N/A Station: N/A - Total Score - Baby A Total Score - Baby A: 0 - Total Score - Baby B Total Score - Baby B: 0 - Total Score - Baby C Total Score - Baby C: 0 - Level of Risk - Baby A Level of Risk - Baby A: Low (0-5) - Level of Risk - Baby B Level of Risk - Baby B: Low (0-5) - Level of Risk - Baby C Level of Risk - Baby C: Low (0-5) Physician Notification (Pre) - Physician Notified Spoke With: pablo New Order Received: Yes - Notification Comment Comment: discharge home. to keep sched appt on 03/10 at office. to work at po hydration and nutrition intake for self and health. verb underst. Medical Screen Scoring (Post) - Cervical Exam Dilation: Exam Deferred - Uterine Contractions Frequency: N/A Duration: N/A Intensity: N/A - Maternal Vital Signs Maternal Temperature: N/A Maternal Blood Pressure: N/A Signs of Preeclampsia: N/A Maternal Respirations: N/A - Pain Assessment Pain Scale Used: Numeric (1 - 10) Pain Intensity: 5 - Maternal Trauma Maternal Trauma: N/A - Assessment - Baby A Heart Rate: 135 Heart Rate - NICHD Category: Category I (Normal) = 0 NST: Reactive Position: N/A Station: N/A - Total Score Total Score - Baby A: 0 Total Score - Baby B: 0 Total Score - Baby C: 0 - Post Treatment Level of Risk Post Treatment Level of Risk - Baby A: Low (0-5) Post Treatment Level of Risk - Baby B: Low (0-5) Post Treatment Level of Risk - Baby C: Low (0-5) Physician Notification (Post) - Physician Notified Physician Notified Date: 03/02/19 Physician Notified Time: 17:10 Spoke With: pablo New Order Received: Yes - Notification Comment Comment: discharge home Disposition - Disposition OB Disposition: Discharge to home Discharge Date: 03/02/19 Discharge Time: 17:25 I agree with the RN Medical Screening Exam: Yes Risk & Benefit of care provided described in d/c instruction: Yes Diagnosis: PAIN, UNSPECIFIED
== END 2019-03-02 17:25 | disposition home or self-care (01) ==
LOC: FBPOP 13:49
PROVIDERS: ATTEND Obstetrics & Gynecology
DX: O99.89 Other specified diseases and conditions complicating pregnancy, childbirth and the puerperium (principal); R52 Pain, unspecified; Z3A.25 25 weeks gestation of pregnancy
CPT/HCPCS: 96360; 96361; 80053; 81001; G0463; 99214

== ENCOUNTER 2019-05-11 10:38 | Observation (INO) | payer OTHER ==
[2019-05-11] MEDS ORDERED: ONDANSETRON 4 MG/2 ML VIAL IVP STA (11:23)
[2019-05-11] MEDS: LACTATED RINGERS 1,000 ML IV SCH ×3 (11:45→13:36)
[2019-05-11 12:48] LABS: Basophils # (A) 0.1 k/uL (0-0.2); Basophils % (A) 0 %; Eosinophils % (A) 0 %; HCT 36.6 % (34.0-46.0); HGB 11.9 gm/dL (11.4-16.0); Lymphocytes # (A) 2.1 k/uL (1.0-4.8); Lymphocytes % (A) 13 %; MCH 26.4 pg (25.0-35.0); MCHC 32.4 g/dL (31.0-37.0); MCV 81.5 fL (80.0-100.0); Mean Platelet Volume 9.2; Monocytes # (A) 0.6 k/uL (0-1.0); Monocytes % (A) 3 %; Neutrophils # (A) 13.6 k/uL (1.3-7.7); Neutrophils % (A) 83 %; Platelet Count 351 k/uL (150-450); RBC 4.49 m/uL (3.80-5.40); RDW 13.4 % (11.5-15.5); WBC 16.5 k/uL (3.8-10.6)
[2019-05-11 12:58] LABS: ALT 10 U/L (4-34); AST 19 U/L (14-36); African American GFR (CKD) >90 (>60 ml/min/1.73 sqM); Albumin 3.4 g/dL (3.5-5.0); Alkaline Phosphatase 203 U/L (38-126); Anion Gap 11 mmol/L; Blood Urea Nitrogen 7 mg/dL (7-17); Calcium 9.1 mg/dL (8.4-10.2); Carbon Dioxide 20 mmol/L (22-30); Chloride 107 mmol/L (98-107); Glucose 94 mg/dL (74-99); Non-African American GFR(CKD) >90 (>60 ml/min/1.73 sqM); Potassium 4.3 mmol/L (3.5-5.1); Sodium 138 mmol/L (137-145); Total Bilirubin 0.7 mg/dL (0.2-1.3); Total Protein 6.6 g/dL (6.3-8.2)
[2019-05-11 14:24] LABS: Appearance,Urine Cloudy (Clear); Bilirubin,Urine Negative (Negative); Blood,Urine Negative (Negative); Color,Urine Yellow; Glucose,Urine (UA) Negative (Negative); Ketones,Urine 3+ (Negative); Leukocyte Esterase,Urine Negative (Negative); Mucus,Urine Occasional /hpf; Nitrite,Urine Negative (Negative); Protein,Urine Trace (Negative); Specific Gravity,Urine 1.017 (1.001-1.035); Squamous Epithelial Cell,Urine 10 /hpf (0-4); Urobilinogen,Urine <2.0 mg/dL (<2.0); WBC,Urine 2 /hpf (0-5)
[2019-05-11] MEDS ORDERED: PROMETHAZINE SUPPOSITORY 25 MG SUPP RECTAL STA (15:49)
[2019-05-11] MEDS ORDERED: LACTATED RINGERS 1,000 ML IV SCH (17:00)
[2019-05-11] MEDS ORDERED: ONDANSETRON 4 MG/2 ML VIAL IVP PRN (17:19)
[2019-05-11] MEDS ORDERED: ACETAMINOPHEN IV (For NPO) 1,000 MG in EMPTY BAG 1 BAG IVPB ONE (17:30)
[2019-05-11 17:52] VITALS: BP 112/58; PULSE 64; RESP 16; TEMP 97.8
--- NOTE | 2019-05-12 04:23 | P.HPOB ---
History of Present Illness H&P Date: 05/12/19 Chief Complaint: IUP at 30 6/7 weeks, nausea vomiting diarrhea. This 24-year-old 1 para 0 at 36-2/7 weeks presented to labor and delivery with complaints of persistent nausea and vomiting. Patient states that she was unable to keep anything down for the last almost 24 hours. Patient was noted to be significantly dehydrated. Patient also noted some diarrhea and s tates she was placed on amoxicillin recently for upper respiratory infection. Patient notes good movement she denies contractions. Patient denies fevers chills Review of Systems Constitutional: Reports fatigue, Reports fever, Denies chills Ears, nose, mouth and throat: Reports headache Cardiovascular: Reports leg edema Gastrointestinal: Reports diarrhea, Reports nausea, Reports vomiting, Denies constipation Genitourinary: Reports Past Medical History Past Medical History: Asthma, Blood Disorder, Cancer, Eye Disorder, Hearing Disorder / Deafness, Pneumonia, Skin Disorder Additional Past Medical History / Comment(s): Lymph nodes cancer, bilateral breast reduction, 1 round of chemo and 1 round of radiation 2014. Hx Hypoglycemia. Hard of hearing mildly. Ezcema. History of Any Multi-Drug Resistant Organisms: MRSA Date of last positivie culture/infection: 2014 MDRO Source:: chest Past Surgical History: Breast Surgery, Ear Surgery, Orthopedic Surgery Additional Past Surgical History / Comment(s): Bilateral breast reduction, 7 ear surgeries, left leg sutured, dental surgeries, left retinal surgery, right foot surgery with pin in heel. Past Anesthesia/Blood Transfusion Reactions: Postoperative Nausea & Vomiting (PONV) Past Psychological History: Bipolar Additional Psychological History / Comment(s): (High functioning) autism. Smoking Status: Never smoker Past Alcohol Use History: None Reported Additional Past Alcohol Use History / Comment(s): None Past Drug Use History: None Reported Medications and Allergies Home Medications Medication Instructions Recorded Confirmed Type Albuterol Inhaler [Ventolin Hfa 2 puff INHALATION RT-Q6H PRN 08/02/18 05/11/19 History Inhaler] Albuterol Nebulized [Ventolin 2.5 mg INHALATION RT-Q4H PRN 08/02/18 05/11/19 History Nebulized] Cetirizine HCl 10 mg PO DAILY MDD 10 mg 01/03/19 05/11/19 History Ondansetron [Zofran] 4 mg PO Q8HR PRN 14 Days tab 01/07/19 05/11/19 Rx Bum-Stcb-Dxmfp Acid 1 each PO DAILY MDD 1 tab 03/02/19 05/11/19 History [-U Capsule (formulary)] Amoxicillin 1 tab PO DAILY 05/11/19 05/11/19 History Allergies Allergy/AdvReac Type Severity Reaction Status Date / Time banana Allergy Nausea & Verified 01/02/19 19:57 Vomiting ciprofloxacin [From Cipro] Allergy Rash/Hives Verified 01/02/19 19:57 coconut Allergy Anaphylaxis Verified 01/02/19 19:57 ibuprofen [From Motrin] Allergy Anaphylaxis Verified 01/02/19 19:57 Iodinated Contrast Media Allergy Unknown Verified 01/02/19 19:57 [Iodinated Contrast- Oral and IV Dye] latex Allergy Unknown Verified 01/02/19 19:57 mold Allergy Unknown Verified 01/02/19 19:57 Mushroom Allergy Anaphylaxis Verified 05/11/19 10:57 orange Allergy Nausea & Verified 01/02/19 19:57 Vomiting pollen extracts Allergy Unknown Verified 01/02/19 19:57 tomato Allergy Anaphylaxis Verified 01/02/19 19:57 cephalexin [From Keflex] AdvReac Rash/Hives Verified 01/02/19 19:57 Exam Osteopathic Statement: *. No significant issues noted on an osteopathic structural exam other than those noted in the History and Physical/Consult. Vital Signs Temp Pulse Resp BP Pulse Ox 05/11/19 17:48 97.8 F 64 16 112/58 05/11/19 17:05 97.8 F 83 16 131/83 96 Intake and Output 05/11/19 05/11/19 05/12/19 14:59 22:59 06:59 Other: # Bowel Movements 1 Weight 83.007 kg 83.007 kg Targeted physical exam is performed in this date, in general this is a well- nourished well-developed female in no acute distress, breathing is noted to be nonlabored and she is resting comfortably in bed. Heart has regular rate and rhythm her abdomen is gravid and appropriate for just the vaginal age. heart tones are noted to be reassuring and recent nonstress test. She was not addie. Results Result Diagrams: 05/11/19 11:35 05/11/19 11:35 Abnormal Lab Results - Last 24 Hours (Table) 05/11/19 05/11/19 05/11/19 Range/Units 11:35 11:35 14:00 WBC 16.5 H (3.8-10.6) k/uL Neutrophils # 13.6 H (1.3-7.7) k/uL Carbon Dioxide 20 L (22-30) mmol/L Alkaline Phosphatase 203 H (38-126) U/L Albumin 3.4 L (3.5-5.0) g/dL Urine Appearance Cloudy H (Clear) Urine Protein Trace H (Negative) Urine Ketones 3+ H (Negative) Ur Squamous Epith Cells 10 H (0-4) /hpf Urine Mucus Occasional H (None) /hpf Assessment and Plan (1) 36 weeks gestation of Current Visit: Yes Status: Acute Code(s): Z3A.36 - 36 WEEKS GESTATION OF SNOMED Code(s): 53194027 (2) Nausea & vomiting Current Visit: Yes Status: Acute Code(s): R11.2 - NAUSEA WITH VOMITING, UNSPECIFIED SNOMED Code(s): 52164920 (3) Diarrhea Current Visit: Yes Status: Acute Code(s): R19.7 - DIARRHEA, UNSPECIFIED SNOMED Code(s): 74864757 (4) Dehydration during Current Visit: Yes Status: Acute Code(s): O26.899 - OTH RELATED CONDITIONS, UNSPECIFIED TRIMESTER; E86.0 - DEHYDRATION SNOMED Code(s): 69978482 Plan: Patient was admitted overnight for IV hydration and antiemetics. Patient failed triage hydration along with eating. Patient wasnt able to tolerate even crackers in triage after 2 L of lactated Ringer/IV Zofran and Phenergan suppository. Patient in addition was noted to have diarrhea. Plan for this 1 para 0 at 36-3/7 weeks was IV hydration overnight. Scheduled IV Zofran as needed and Phenergan suppositories if needed as well. Will plan NST every shift, patient is complaining of a headache in addition therefore IV Ofirmev was given secondary to her being unable to tolerate anything by mouth.
--- NOTE | 2019-05-12 04:25 | P.DS ---
Providers Date of admission: 05/11/19 17:17 Expected date of discharge: 05/12/19 Attending physician: Shyann Mcallister Primary care physician: Stated None - Discharge Diagnosis(es) (1) 36 weeks gestation of Current Visit: Yes Status: Acute (2) Nausea & vomiting Current Visit: Yes Status: Acute (3) Diarrhea Current Visit: Yes Status: Acute (4) Dehydration during Current Visit: Yes Status: Acute Hospital Course: Overnight patient has had no nausea or vomiting, only one episode of diarrhea. Patient states she is feeling improved this morning therefore we will plan discharge home this morning. Patient notes good movement she denies contractions and states she rested well overnight. She did have 1 episode of diarrhea and upon getting cleaned up her IV was lost therefore the nurses attempted to replace and she refused. She is tolerating oral hydration at this time. Patient Condition at Discharge: Good Plan - Discharge Summary New Discharge Prescriptions: No Action Albuterol Nebulized [Ventolin Nebulized] 2.5 mg INHALATION RT-Q4H PRN PRN Reason: Shortness Of Breath Albuterol Inhaler [Ventolin Hfa Inhaler] 2 puff INHALATION RT-Q6H PRN PRN Reason: Shortness Of Breath Cetirizine HCl 10 mg PO DAILY MDD 10 mg Ondansetron [Zofran] 4 mg PO Q8HR PRN 14 Days tab PRN Reason: Nausea And Vomiting Too-Qzuz-Advck Acid [-U Capsule (formulary)] 1 each PO DAILY MDD 1 tab Amoxicillin 1 tab PO DAILY Discharge Medication List Albuterol Inhaler [Ventolin Hfa Inhaler] 2 puff INHALATION RT-Q6H PRN 08/02/18 [History] Albuterol Nebulized [Ventolin Nebulized] 2.5 mg INHALATION RT-Q4H PRN 08/02/18 [History] Cetirizine HCl 10 mg PO DAILY MDD 10 mg 01/03/19 [History] Ondansetron [Zofran] 4 mg PO Q8HR PRN 14 Days tab 01/07/19 [Rx] Jyl-Rfyx-Zbjqe Acid [-U Capsule (formulary)] 1 each PO DAILY MDD 1 tab 03/02/19 [History] Amoxicillin 1 tab PO DAILY 05/11/19 [History] Follow up Appointment(s)/Referral(s): Shyann Mcallister DO [Doctor of Osteopathic Medicine] - 1 Week Discharge Disposition: HOME SELF-CARE
== END 2019-05-12 13:30 | disposition home or self-care (01) ==
LOC: FBPOP 10:38 → 4FBP 17:17
PROVIDERS: ADMIT Obstetrics & Gynecology Obstetrics; ATTEND Obstetrics & Gynecology Obstetrics
DX: O21.2 Late vomiting of pregnancy (principal); Z3A.36 36 weeks gestation of pregnancy; O99.89 Other specified diseases and conditions complicating pregnancy, childbirth and the puerperium; R19.7 Diarrhea, unspecified; E86.0 Dehydration; O99.283 Endocrine, nutritional and metabolic diseases complicating pregnancy, third trimester; Z91.041 Radiographic dye allergy status; Z91.040 Latex allergy status; Z88.8 Allergy status to other drugs, medicaments and biological substances; Z91.018 Allergy to other foods; J30.1 Allergic rhinitis due to pollen; T78.49XA Other allergy, initial encounter; F84.0 Autistic disorder; O99.343 Other mental disorders complicating pregnancy, third trimester; J45.909 Unspecified asthma, uncomplicated; H91.90 Unspecified hearing loss, unspecified ear; Z16.24 Resistance to multiple antibiotics; Z79.51 Long term (current) use of inhaled steroids
CPT/HCPCS: 59025; 96361; 96374; 80053; 85025; 81001; G0463; G0378; J2405; J0131; 96360; 96375; 99214

== ENCOUNTER 2019-06-20 21:28 | Observation (INO) | payer OTHER ==
[2019-06-20 22:16] LABS: ALT 16 U/L (4-34); AST 47 U/L (14-36); African American GFR (CKD) >90 (>60 ml/min/1.73 sqM); Albumin 4.1 g/dL (3.5-5.0); Alkaline Phosphatase 138 U/L (38-126); Amylase 54 U/L (30-110); Anion Gap 12 mmol/L; Blood Urea Nitrogen 18 mg/dL (7-17); Calcium 9.6 mg/dL (8.4-10.2); Carbon Dioxide 22 mmol/L (22-30); Chloride 103 mmol/L (98-107); Glucose 113 mg/dL (74-99); Non-African American GFR(CKD) >90 (>60 ml/min/1.73 sqM); Sodium 137 mmol/L (137-145); Total Bilirubin 0.8 mg/dL (0.2-1.3); Total Protein 7.3 g/dL (6.3-8.2)
[2019-06-20 22:17] LABS: Potassium 4.3 mmol/L (3.5-5.1)
[2019-06-20] MEDS ORDERED: HYDROmorphone 0.5 MG/0.5 ML SYRINGE IVP STA ×2 (22:45→23:40)
[2019-06-20 22:47] LABS: Basophils # (A) 0.1 k/uL (0-0.2); Basophils % (A) 1 %; Eosinophils # (A) 0.2 k/uL (0-0.7); Eosinophils % (A) 2 %; HCT 42.2 % (34.0-46.0); Lymphocytes # (A) 2.6 k/uL (1.0-4.8); Lymphocytes % (A) 20 %; MCH 26.4 pg (25.0-35.0); MCHC 33.7 g/dL (31.0-37.0); MCV 78.2 fL (80.0-100.0); Mean Platelet Volume 7.8; Monocytes # (A) 0.6 k/uL (0-1.0); Monocytes % (A) 4 %; Neutrophils # (A) 9.7 k/uL (1.3-7.7); Neutrophils % (A) 73 %; RDW 13.3 % (11.5-15.5); WBC 13.3 k/uL (3.8-10.6)
[2019-06-20 22:55] LABS: HGB 14.2 gm/dL (11.4-16.0)
[2019-06-20 23:05] LABS: Platelet Count 373 k/uL (150-450)
--- NOTE | 2019-06-20 23:05 | ED ---
Abdominal Pain HPI - General Chief Complaint: Abdominal Pain Stated Complaint: Abd pain s/p Time Seen by Provider: 06/20/19 21:41 Source: patient Mode of arrival: ambulatory Limitations: no limitations - History of Present Illness MD Complaint: abdominal pain -: hour(s) Location: LUQ, RUQ Radiation: back Migration to: no migration Severity: severe Quality: sharp Consistency: constant Improves With: nothing Worsens With: nothing Associated Symptoms: nausea - Related Data Home Medications Medication Instructions Recorded Confirmed Cetirizine HCl 1 tab PO DAILY 06/03/19 06/03/19 Pnv,Calcium 72/Iron/Folic Acid 1 tab PO DAILY 06/03/19 06/03/19 [ Plus Tablet] Sertraline [Zoloft] 1 tab PO DAILY 06/03/19 06/03/19 Allergies Allergy/AdvReac Type Severity Reaction Status Date / Time azithromycin Allergy Nausea & Verified 06/20/19 21:35 Vomiting banana Allergy Nausea & Verified 06/20/19 21:35 Vomiting cephalexin [From Keflex] Allergy Nausea & Verified 06/20/19 21:35 Vomiting ciprofloxacin Allergy Nausea & Verified 06/20/19 21:35 Vomiting coconut Allergy Anaphylaxis Verified 06/20/19 21:35 coconut oil Allergy Anaphylaxis Verified 06/20/19 21:35 ibuprofen Allergy Nausea & Verified 06/20/19 21:35 Vomiting Iodinated Contrast Media Allergy Swelling Verified 06/20/19 21:35 latex Allergy Rash/Hives Verified 06/20/19 21:35 Mushroom Allergy Anaphylaxis Verified 06/20/19 21:35 orange juice [[place]] Allergy Nausea & Verified 06/20/19 21:35 Vomiting Review of Systems ROS Statement: Those systems with pertinent positive or pertinent negative responses have been documented in the HPI. ROS Other: All systems not noted in ROS Statement are negative. Constitutional: Reports: chills. Denies: fever Respiratory: Denies: cough, dyspnea Cardiovascular: Denies: chest pain, palpitations Gastrointestinal: Reports: abdominal pain, nausea. Denies: vomiting, diarrhea Genitourinary: Denies: dysuria, hematuria Musculoskeletal: Denies: back pain Skin: Denies: rash Neurological: Denies: headache, weakness, numbness Past Medical History Past Medical History: Asthma, Seizure Disorder Additional Past Medical History / Comment(s): anemia,bipolar,eczema,kidney infections History of Any Multi-Drug Resistant Organisms: MRSA Date of last positivie culture/infection: 2014 MDRO Source:: chest Past Surgical History: Adenoidectomy, Breast Surgery Additional Past Surgical History / Comment(s): lymphectomy, tubes in ears Past Anesthesia/Blood Transfusion Reactions: No Reported Reaction Past Psychological History: Bipolar Smoking Status: Never smoker Past Alcohol Use History: None Reported Past Drug Use History: None Reported - Past Family History Mother Family Medical History: Coronary Artery Disease (CAD), Deep Vein Thrombosis (DVT), Hyperlipidemia General Exam Limitations: no limitations General appearance: alert, in no apparent distress Head exam: Present: atraumatic, normocephalic Eye exam: Present: normal appearance. Absent: scleral icterus, conjunctival injection ENT exam: Present: normal oropharynx Respiratory exam: Present: normal lung sounds bilaterally. Absent: respiratory distress, wheezes, rales, rhonchi, stridor Cardiovascular Exam: Present: regular rate, normal rhythm, normal heart sounds. Absent: systolic murmur, diastolic murmur, rubs, gallop GI/Abdominal exam: Present: soft, tenderness, guarding. Absent: distended, rebound, rigid, mass Course Vital Signs 06/20/19 06/20/19 06/21/19 21:34 23:36 01:10 Temperature 98.9 F Pulse Rate 103 H 82 90 Respiratory 20 18 18 Rate Blood Pressure 143/84 132/95 118/74 O2 Sat by Pulse 99 98 98 Oximetry Medical Decision Making - Lab Data Result diagrams: 06/20/19 21:50 06/20/19 21:50 Lab Results 06/20/19 06/20/19 06/20/19 Range/Units 21:50 21:50 22:00 WBC 13.3 H (3.8-10.6) k/uL RBC 5.40 (3.80-5.40) m/uL Hgb 14.2 D (11.4-16.0) gm/dL Hct 42.2 (34.0-46.0) % MCV 78.2 L (80.0-100.0) fL MCH 26.4 (25.0-35.0) pg MCHC 33.7 (31.0-37.0) g/dL RDW 13.3 (11.5-15.5) % Plt Count 373 (150-450) k/uL Neutrophils % 73 % Lymphocytes % 20 % Monocytes % 4 % Eosinophils % 2 % Basophils % 1 % Neutrophils # 9.7 H (1.3-7.7) k/uL Lymphocytes # 2.6 (1.0-4.8) k/uL Monocytes # 0.6 (0-1.0) k/uL Eosinophils # 0.2 (0-0.7) k/uL Basophils # 0.1 (0-0.2) k/uL Manual Slide Review Performed Sodium 137 (137-145) mmol/L Potassium 4.3 (3.5-5.1) mmol/L Chloride 103 (98-107) mmol/L Carbon Dioxide 22 (22-30) mmol/L Anion Gap 12 mmol/L BUN 18 H (7-17) mg/dL Creatinine 0.78 (0.52-1.04) mg/dL Est GFR (CKD-EPI)AfAm >90 (>60 ml/min/1.73 sqM) Est GFR (CKD-EPI)NonAf >90 (>60 ml/min/1.73 sqM) Glucose 113 H (74-99) mg/dL Calcium 9.6 (8.4-10.2) mg/dL Total Bilirubin 0.8 (0.2-1.3) mg/dL AST 47 H (14-36) U/L ALT 16 (4-34) U/L Alkaline Phosphatase 138 H (38-126) U/L Total Protein 7.3 (6.3-8.2) g/dL Albumin 4.1 (3.5-5.0) g/dL Amylase 54 (30-110) U/L Lipase 80 (23-300) U/L Urine Color Yellow Urine Appearance Clear (Clear) Urine pH 8.0 (5.0-8.0) Ur Specific [place] 1.021 (1.001-1.035) Urine Protein Negative (Negative) Urine Glucose (UA) Negative (Negative) Urine Ketones Negative (Negative) Urine Blood Small H (Negative) Urine Nitrite Negative (Negative) Urine Bilirubin Negative (Negative) Urine Urobilinogen <2.0 (<2.0) mg/dL Ur Leukocyte Esterase Large H (Negative) Urine RBC 16 H (0-5) /hpf Urine WBC 39 H (0-5) /hpf Ur Squamous Epith Cells 1 (0-4) /hpf Urine Mucus Rare H (None) /hpf Urine HCG, Qual (Not Detectd) 06/20/19 Range/Units 22:00 WBC (3.8-10.6) k/uL RBC (3.80-5.40) m/uL Hgb (11.4-16.0) gm/dL Hct (34.0-46.0) % MCV (80.0-100.0) fL MCH (25.0-35.0) pg MCHC (31.0-37.0) g/dL RDW (11.5-15.5) % Plt Count (150-450) k/uL Neutrophils % % Lymphocytes % % Monocytes % % Eosinophils % % Basophils % % Neutrophils # (1.3-7.7) k/uL Lymphocytes # (1.0-4.8) k/uL Monocytes # (0-1.0) k/uL Eosinophils # (0-0.7) k/uL Basophils # (0-0.2) k/uL Manual Slide Review Sodium (137-145) mmol/L Potassium (3.5-5.1) mmol/L Chloride (98-107) mmol/L Carbon Dioxide (22-30) mmol/L Anion Gap mmol/L BUN (7-17) mg/dL Creatinine (0.52-1.04) mg/dL Est GFR (CKD-EPI)AfAm (>60 ml/min/1.73 sqM) Est GFR (CKD-EPI)NonAf (>60 ml/min/1.73 sqM) Glucose (74-99) mg/dL Calcium (8.4-10.2) mg/dL Total Bilirubin (0.2-1.3) mg/dL AST (14-36) U/L ALT (4-34) U/L Alkaline Phosphatase (38-126) U/L Total Protein (6.3-8.2) g/dL Albumin (3.5-5.0) g/dL Amylase (30-110) U/L Lipase (23-300) U/L Urine Color Urine Appearance (Clear) Urine pH (5.0-8.0) Ur Specific [place] (1.001-1.035) Urine Protein (Negative) Urine Glucose (UA) (Negative) Urine Ketones (Negative) Urine Blood (Negative) Urine Nitrite (Negative) Urine Bilirubin (Negative) Urine Urobilinogen (<2.0) mg/dL Ur Leukocyte Esterase (Negative) Urine RBC (0-5) /hpf Urine WBC (0-5) /hpf Ur Squamous Epith Cells (0-4) /hpf Urine Mucus (None) /hpf Urine HCG, Qual Not Detected (Not Detectd) Disposition Clinical Impression: Abdominal pain Disposition: ADMITTED IP TO THIS [facility] Condition: Good Instructions (If sedation given, give patient instructions): Gallstones (ED), Abdominal Pain (ED) Is patient prescribed a controlled substance at d/c from ED?: No Referrals: Arron Khan MD [Primary Care Provider] - 1-2 days
[2019-06-20 23:33] LABS: Appearance,Urine Clear (Clear); Bilirubin,Urine Negative (Negative); Blood,Urine Small (Negative); Color,Urine Yellow; Glucose,Urine (UA) Negative (Negative); Ketones,Urine Negative (Negative); Leukocyte Esterase,Urine Large (Negative); Mucus,Urine Rare /hpf; Nitrite,Urine Negative (Negative); Protein,Urine Negative (Negative); RBC,Urine 16 /hpf (0-5); Specific Gravity,Urine 1.021 (1.001-1.035); Squamous Epithelial Cell,Urine 1 /hpf (0-4); Urobilinogen,Urine <2.0 mg/dL (<2.0); WBC,Urine 39 /hpf (0-5)
--- NOTE | 2019-06-20 23:53 | US ---
EXAMINATION TYPE: US abdomen limited DATE OF EXAM: 06/20/2019 COMPARISON: NONE CLINICAL HISTORY: acute RUQ abdominal pain, attention biliary. Pain. Hx x 2.5 weeks ago. EXAM MEASUREMENTS: Liver Length: 17.1 cm Gallbladder Wall: 0.2 cm CBD: 0.5 cm CHD: 0.5 cm Right Kidney: 10.2 x 4.8 x 4.0 cm Pancreas: Tail obscured by overlying bowel gas. Main pancreatic duct - 3.0 mm. Body - 2.2 cm. Liver: wnl Gallbladder: Enlarged in size= 12.0 cm. Multiple echogenic foci with shadow Evidence for sonographic Dorantes's sign: neg CBD: wnl Right Kidney: neg IMPRESSION: There are numerous gallstones. No dilated ducts. No free fluid.
[2019-06-21] MEDS ORDERED: ONDANSETRON 4 MG/2 ML VIAL IVP STA (00:13)
[2019-06-21] MEDS ORDERED: SODIUM CHLORIDE 0.9% 500 ML 500 ML IV STA (00:13)
[2019-06-21] MEDS ORDERED: NALOXONE 0.4 MG/ML 1 ML VIAL IV PRN (01:54)
[2019-06-21] MEDS ORDERED: ONDANSETRON 4 MG/2 ML VIAL IVP PRN (01:54)
[2019-06-21] MEDS: SODIUM CHLORIDE 0.9% 1,000 ML IV SCH ×3 (03:09→15:03)
[2019-06-21] MEDS: HYDROmorphone 0.5 MG/0.5 ML SYRINGE IVP PRN ×3 (08:11→21:56)
--- NOTE | 2019-06-21 09:32 | P.GSHP ---
History of Present Illness H&P Date: 06/21/19 24-year-old female presented to the emergency department with complaints of abdominal pain. She states that the pain began as a dull ache in the right upper quadrant and worsened to significant pain throughout the day. She denies having this type of pain previously. She did deliver a baby approximately 3 weeks ago. The baby was delivered via . She also complains of nausea and vomiting episodes. On workup in the emergency department, ultrasound of the abdomen was performed that did show cholelithiasis and an enlarged gallbladder. She denies any fevers, chills, chest pain or shortness of breath. - Review of Systems All systems: negative Past Medical History Past Medical History: Asthma, Seizure Disorder Additional Past Medical History / Comment(s): bipolar,eczema,kidney infections, szr as a child History of Any Multi-Drug Resistant Organisms: MRSA Date of last positivie culture/infection: 2014 MDRO Source:: chest Past Surgical History: Adenoidectomy, Breast Surgery Additional Past Surgical History / Comment(s): B breast reduction, tubes in ears Past Anesthesia/Blood Transfusion Reactions: No Reported Reaction Past Psychological History: Bipolar Smoking Status: Never smoker Past Alcohol Use History: None Reported Past Drug Use History: None Reported - Past Family History Mother Family Medical History: Coronary Artery Disease (CAD), Deep Vein Thrombosis (D VT), Hyperlipidemia Medications and Allergies Home Medications Medication Instructions Recorded Confirmed Type Cetirizine HCl 1 tab PO DAILY 06/03/19 06/03/19 History Pnv,Calcium 72/Iron/Folic Acid 1 tab PO DAILY 06/03/19 06/03/19 History [ Plus Tablet] Sertraline [Zoloft] 1 tab PO DAILY 06/03/19 06/03/19 History Allergies Allergy/AdvReac Type Severity Reaction Status Date / Time azithromycin Allergy Nausea & Verified 06/20/19 21:35 Vomiting banana Allergy Nausea & Verified 06/20/19 21:35 Vomiting cephalexin [From Keflex] Allergy Nausea & Verified 06/20/19 21:35 Vomiting ciprofloxacin Allergy Nausea & Verified 06/20/19 21:35 Vomiting coconut Allergy Anaphylaxis Verified 06/20/19 21:35 coconut oil Allergy Anaphylaxis Verified 06/20/19 21:35 ibuprofen Allergy Nausea & Verified 06/20/19 21:35 Vomiting Iodinated Contrast Media Allergy Swelling Verified 06/20/19 21:35 latex Allergy Rash/Hives Verified 06/20/19 21:35 Mushroom Allergy Anaphylaxis Verified 06/20/19 21:35 orange juice [[place]] Allergy Nausea & Verified 06/20/19 21:35 Vomiting Surgical - Exam Osteopathic Statement: *. No significant issues noted on an osteopathic structural exam other than those noted in the History and Physical/Consult. Vital Signs Temp Pulse Resp BP Pulse Ox 98.9 F 103 H 20 143/84 99 06/20/19 21:34 06/20/19 21:34 06/20/19 21:34 06/20/19 21:34 06/20/19 21:34 - General well nourished, no distress - Eyes PERRL - Neck trachea midline - Respiratory normal respiratory effort - Abdomen Soft, tender to palpation in right upper quadrant, nondistended, no rebound, no guarding - Psychiatric oriented to time, oriented to person, oriented to place Results - Labs 06/20/19 21:50 06/20/19 21:50 Abnormal Lab Results - Last 24 Hours (Table) 06/20/19 06/20/19 06/20/19 Range/Units 21:50 21:50 22:00 WBC 13.3 H (3.8-10.6) k/uL MCV 78.2 L (80.0-100.0) fL Neutrophils # 9.7 H (1.3-7.7) k/uL BUN 18 H (7-17) mg/dL Glucose 113 H (74-99) mg/dL AST 47 H (14-36) U/L Alkaline Phosphatase 138 H (38-126) U/L Urine Blood Small H (Negative) Ur Leukocyte Esterase Large H (Negative) Urine RBC 16 H (0-5) /hpf Urine WBC 39 H (0-5) /hpf Urine Mucus Rare H (None) /hpf Diabetes panel 06/20/19 Range/Units 21:50 Sodium 137 (137-145) mmol/L Potassium 4.3 (3.5-5.1) mmol/L Chloride 103 (98-107) mmol/L Carbon Dioxide 22 (22-30) mmol/L BUN 18 H (7-17) mg/dL Creatinine 0.78 (0.52-1.04) mg/dL Glucose 113 H (74-99) mg/dL Calcium 9.6 (8.4-10.2) mg/dL AST 47 H (14-36) U/L ALT 16 (4-34) U/L Alkaline Phosphatase 138 H (38-126) U/L Total Protein 7.3 (6.3-8.2) g/dL Albumin 4.1 (3.5-5.0) g/dL Calcium panel 06/20/19 Range/Units 21:50 Calcium 9.6 (8.4-10.2) mg/dL Albumin 4.1 (3.5-5.0) g/dL Pituitary panel 06/20/19 Range/Units 21:50 Sodium 137 (137-145) mmol/L Potassium 4.3 (3.5-5.1) mmol/L Chloride 103 (98-107) mmol/L Carbon Dioxide 22 (22-30) mmol/L BUN 18 H (7-17) mg/dL Creatinine 0.78 (0.52-1.04) mg/dL Glucose 113 H (74-99) mg/dL Calcium 9.6 (8.4-10.2) mg/dL Adrenal panel 06/20/19 Range/Units 21:50 Sodium 137 (137-145) mmol/L Potassium 4.3 (3.5-5.1) mmol/L Chloride 103 (98-107) mmol/L Carbon Dioxide 22 (22-30) mmol/L BUN 18 H (7-17) mg/dL Creatinine 0.78 (0.52-1.04) mg/dL Glucose 113 H (74-99) mg/dL Calcium 9.6 (8.4-10.2) mg/dL Total Bilirubin 0.8 (0.2-1.3) mg/dL AST 47 H (14-36) U/L ALT 16 (4-34) U/L Alkaline Phosphatase 138 H (38-126) U/L Total Protein 7.3 (6.3-8.2) g/dL Albumin 4.1 (3.5-5.0) g/dL Assessment and Plan (1) Cholecystitis Narrative/Plan: 24-year-old female with cholecystitis secondary to cholelithiasis - Keep patient nothing by mouth - Begin antibiotics - Continue IV fluid - Plan for laparoscopic cholecystectomy - Further recommendations after procedure Current Visit: Yes Status: Acute Code(s): K81.9 - CHOLECYSTITIS, UNSPECIFIED SNOMED Code(s): 88498758
[2019-06-21] MEDS: PIPERACILLIN-TAZOBACTAM 3.375 GM in SODIUM CHLORIDE 0.9% 100 ML IVPB SCH ×2 (10:15→17:14)
[2019-06-21] MEDS ORDERED: LIDOCAINE 1% INJ 10MG/ML (20 ML MDV) ONE (13:11)
[2019-06-21] MEDS ORDERED: DEXAMETHASONE SOD PHOS (MDV) 100 MG/10 ML VIAL ONE (13:11)
[2019-06-21] MEDS ORDERED: SUCCINYLCHOLINE CHLORIDE 100 MG/5 ML SYR IV ONE (13:11)
[2019-06-21] MEDS ORDERED: PROPOFOL 10 MG/ML 20 ML VIAL IV ONE (13:11)
[2019-06-21] MEDS ORDERED: ROCURONIUM BROMIDE 10 MG/ML 5 ML VIAL IV ONE (13:11)
[2019-06-21] MEDS ORDERED: NEOSTIGMINE 1 MG/ML 10 ML VIAL ONE (13:11)
[2019-06-21] MEDS ORDERED: HEPARIN SODIUM,PORCINE 5,000 UNIT/ML 1 ML VIAL ONE (13:11)
[2019-06-21] MEDS ORDERED: fentaNYL (PF) 50 MCG/ML 2 ML AMP ONE (13:11)
[2019-06-21] MEDS ORDERED: MIDAZOLAM 2 MG/2 ML VIAL ONE (13:11)
[2019-06-21] MEDS ORDERED: NALOXONE 0.4 MG/ML 1 ML VIAL ONE (13:11)
[2019-06-21] MEDS ORDERED: GLYCOPYRROLATE 0.2 MG/ML 2 ML VIAL ONE (13:11)
[2019-06-21] MEDS ORDERED: diphenhydrAMINE 50 MG/ML 1 ML VIAL ONE (13:11)
[2019-06-21] MEDS ORDERED: BUPIVACAINE (PF) 0.25% 30 ML VIAL SQ ONE (13:15)
[2019-06-21] MEDS ORDERED: SODIUM CHLORIDE 0.9% 1,000 ML IV ONE (13:15)
[2019-06-21] MEDS ORDERED: LACTATED RINGERS 1,000 ML IV ONE (13:15)
[2019-06-21] MEDS ORDERED: HYDROcodone/APAP 5-325MG 1 EACH TAB PO PRN (14:03)
--- NOTE | 2019-06-21 14:07 | P.OP ---
Date of Procedure: 06/21/19 Preoperative Diagnosis: Acute cholecystitis Postoperative Diagnosis: Acute cholecystitis Procedure(s) Performed: Laparoscopic cholecystectomy Anesthesia: TONO Surgeon: Matilda Mcgrath Pathology: other (Gallbladder) Condition: stable Disposition: floor Indications for Procedure: 24-year-old female presented to the emergency department with complaints of right upper quadrant pain. On workup, the patient was found to have biliary etiology with cholecystitis. Secondary to this and unable to control pain and nausea and vomiting, patient was admitted. Plan was for laparoscopic cholecystectomy. The patient was explained the risks, benefits and alternatives to the procedure and did provide consent prior to attending the operating suite. Operative Findings: Distended gallbladder with edematous changes Description of Procedure: Patient was brought into the operating suite and placed in supine position on the operating table. Sedation was provided by anesthesia and the patient underwent endotracheal intubation. The patient was then prepped and draped in regular sterile fashion. Local anesthetic was administered and an infraumbilical incision was made. Dissection was carried to the fascia and the fascia was incised. A 12 mm trocar was placed and pneumoperitoneum was achieved. 3 additional 5 mm ports were placed. One was placed in the subxiphoid location and 2 were placed in the right upper quadrant. The gallbladder was then grasped and retracted. The gallbladder was noted to be distended with surrounding edematous changes. Dissection was carried to skeletonize both the cystic duct and cystic artery. Critical view was obtained. 2 clips were placed proximally on the cystic duct and one was placed distally and the cystic duct was ligated. Similarly, 2 clips were placed proximally on the cystic artery and one was placed distally and the cystic artery was ligated. Cautery was then used to dissect the gallbladder from the gallbladder fossa on the liver bed. The gallbladder was then placed in an Endo Catch bag and removed from the abdomen from the infraumbilical port site. Irrigation was used in the right upper quadrant and suctioned. The infraumbilical incisions site fascia was closed under direct visualization using a Frank-Surendra device and 0 Vicryl suture. All ports were then removed from the abdomen. All skin incisions were closed with 4-0 Vicryl subcuticular suture. The patient was awakened in the operating suite and taken to postanesthesia care unit in stable condition.
[2019-06-21] MEDS ORDERED: IPRATROPIUM-ALBUTEROL 3 ML NEB INHALATION PRN (14:09)
[2019-06-21] MEDS ORDERED: HYDROmorphone 0.5 MG/0.5 ML SYRINGE IVP ONE (14:35)
[2019-06-21 15:10] VITALS: RESP 16
[2019-06-21] MEDS: HEPARIN SODIUM,PORCINE 5,000 UNIT/ML 1 ML VIAL SQ SCH ×2 (15:40→23:00)
[2019-06-21] MEDS ORDERED: HYDROmorphone 0.5 MG/0.5 ML SYRINGE IVP STA (23:29)
[2019-06-22] MEDS ORDERED: KETOROLAC 30 MG/ML 1 ML VIAL IVP SCH
[2019-06-22] MEDS ORDERED: KETOROLAC 30 MG/ML 1 ML VIAL IVP STA (00:01)
[2019-06-22] MEDS: HYDROmorphone 0.5 MG/0.5 ML SYRINGE IVP PRN (01:31)
[2019-06-22] MEDS: PIPERACILLIN-TAZOBACTAM 3.375 GM in SODIUM CHLORIDE 0.9% 100 ML IVPB SCH ×2 (01:32→09:11)
[2019-06-22] MEDS: SODIUM CHLORIDE 0.9% 1,000 ML IV SCH (05:35)
[2019-06-22] MEDS: HEPARIN SODIUM,PORCINE 5,000 UNIT/ML 1 ML VIAL SQ SCH (09:11)
[2019-06-22 10:07] LABS: ALT 29 U/L (4-34); AST 39 U/L (14-36); African American GFR (CKD) >90 (>60 ml/min/1.73 sqM); Albumin 3.3 g/dL (3.5-5.0); Alkaline Phosphatase 124 U/L (38-126); Anion Gap 11 mmol/L; Blood Urea Nitrogen 14 mg/dL (7-17); Calcium 8.8 mg/dL (8.4-10.2); Carbon Dioxide 21 mmol/L (22-30); Chloride 106 mmol/L (98-107); Glucose 110 mg/dL (74-99); Non-African American GFR(CKD) 79 (>60 ml/min/1.73 sqM); Potassium 4.3 mmol/L (3.5-5.1); Sodium 138 mmol/L (137-145); Total Bilirubin 0.6 mg/dL (0.2-1.3); Total Protein 6.1 g/dL (6.3-8.2)
[2019-06-22 10:10] LABS: Basophils % (A) 0 %; Eosinophils % (A) 0 %; HCT 35.6 % (34.0-46.0); HGB 11.3 gm/dL (11.4-16.0); Lymphocytes # (A) 1.9 k/uL (1.0-4.8); Lymphocytes % (A) 19 %; MCH 25.9 pg (25.0-35.0); MCHC 31.6 g/dL (31.0-37.0); MCV 81.9 fL (80.0-100.0); Mean Platelet Volume 7.8; Monocytes # (A) 0.5 k/uL (0-1.0); Monocytes % (A) 5 %; Neutrophils # (A) 7.5 k/uL (1.3-7.7); Neutrophils % (A) 75 %; Platelet Count 322 k/uL (150-450); RBC 4.35 m/uL (3.80-5.40); RDW 13.7 % (11.5-15.5)
[2019-06-22 11:58] VITALS: BP 109/63; PULSE 86; TEMP 97.8
--- NOTE | 2019-06-22 12:49 | P.DS ---
Providers Date of admission: 06/21/19 01:55 Attending physician: Matilda Mcgrath DO Primary care physician: Arron Khan - Discharge Diagnosis(es) (1) Cholecystitis Current Visit: Yes Status: Acute Hospital Course: 24-year-old female was admitted secondary to concern for cholecystitis. She was taken for laparoscopic cholecystectomy. Postoperatively, the patient did improve and pain levels improved. Her diet was advanced and she did tolerate diet prior to discharge. She is to follow as an outpatient. Discharge instructions were provided to the patient. Assessment: Abdomen, soft, nontender, nondistended, no rebound, no guarding, incision sites are clean, dry and intact Procedures: Laparoscopic cholecystectomy Patient Condition at Discharge: Good Plan - Discharge Summary New Discharge Prescriptions: New HYDROcodone/APAP 5-325MG [[place] 5-325] 1 tab PO Q6HR PRN 3 Days #10 tab PRN Reason: Pain Continue Cetirizine HCl 1 tab PO DAILY Pnv,Calcium 72/Iron/Folic Acid [ Plus Tablet] 1 tab PO DAILY Sertraline [Zoloft] 1 tab PO DAILY Albuterol Nebulized [Ventolin Nebulized] 2.5 mg INHALATION RT-Q8H PRN PRN Reason: Shortness Of Breath Albuterol Inhaler [Ventolin Hfa Inhaler] 1 - 2 puff INHALATION RT-Q6H PRN PRN Reason: Shortness Of Breath Ipratropium-Albuterol Nebulize [Duoneb 0.5 mg-3 mg/3 ml Soln] 3 ml INHALATION RT-Q8H PRN PRN Reason: Shortness Of Breath Discharge Medication List Cetirizine HCl 1 tab PO DAILY 06/03/19 [History] Pnv,Calcium 72/Iron/Folic Acid [ Plus Tablet] 1 tab PO DAILY 06/03/19 [History] Sertraline [Zoloft] 1 tab PO DAILY 06/03/19 [History] Albuterol Inhaler [Ventolin Hfa Inhaler] 1 - 2 puff INHALATION RT-Q6H PRN 06/21/19 [History] Albuterol Nebulized [Ventolin Nebulized] 2.5 mg INHALATION RT-Q8H PRN 06/21/19 [History] Ipratropium-Albuterol Nebulize [Duoneb 0.5 mg-3 mg/3 ml Soln] 3 ml INHALATION RT-Q8H PRN 06/21/19 [History] HYDROcodone/APAP 5-325MG [[place] 5-325] 1 tab PO Q6HR PRN 3 Days #10 tab 06/22/19 [Rx] Follow up Appointment(s)/Referral(s): Arron Khan MD [Primary Care Provider] - 1-2 days Matilda Mcgrath DO [Doctor of Osteopathic Medicine] - 2 Weeks Patient Instructions/Handouts: Gallstones (ED), Abdominal Pain (ED) Activity/Diet/Wound Care/Special Instructions: Okay to stay on low-fat diet Increase activity daily Do not breast-feed while taking pain medication Okay to shower, do not scrub soap on incision sites Discharge Disposition: HOME SELF-CARE
== END 2019-06-22 14:40 | disposition home or self-care (01) ==
LOC: EC 21:28 → MERGE 06-21 01:55 → 5NMEDONC 06-21 01:55
PROVIDERS: ADMIT Surgery; ATTEND Surgery
DX: K80.00 Calculus of gallbladder with acute cholecystitis without obstruction (principal); J45.909 Unspecified asthma, uncomplicated; G40.909 Epilepsy, unspecified, not intractable, without status epilepticus; D64.9 Anemia, unspecified; F31.9 Bipolar disorder, unspecified; L30.9 Dermatitis, unspecified; Z86.14 Personal history of Methicillin resistant Staphylococcus aureus infection; Z90.89 Acquired absence of other organs; Z79.899 Other long term (current) drug therapy; Z88.1 Allergy status to other antibiotic agents; Z88.6 Allergy status to analgesic agent; Z91.041 Radiographic dye allergy status; Z91.018 Allergy to other foods; Z82.49 Family history of ischemic heart disease and other diseases of the circulatory system; Z83.438 Family history of other disorder of lipoprotein metabolism and other lipidemia
CPT/HCPCS: 96376 ×2; 96374; 96375; 99285; 36415; 88304; 80053 ×2; 82150; 83690; 85025 ×2; 81001; 81025; 87086; 76705; 47562; G0378 ×2; J2543 ×2; J2250; J1200; J1644 ×2; J2310; J2710; J2405; J2001; J3010; J1885; J1100; J0330; J2704; J1170 ×3

== ENCOUNTER 2020-06-28 09:19 | Emergency (ER) | payer OTHER ==
[2020-06-28 09:26] VITALS: RESP 18
[2020-06-28] MEDS ORDERED: ONDANSETRON 4 MG/2 ML VIAL IVP STA (09:55)
[2020-06-28] MEDS ORDERED: MORPHINE SULFATE 4 MG/ML SYRINGE IV STA (09:55)
[2020-06-28] MEDS ORDERED: methylPREDNISolone SOD SUCCI 125 MG/2 ML VIAL IV STA (09:55)
[2020-06-28] MEDS ORDERED: diphenhydrAMINE 50 MG/ML 1 ML VIAL IVP STA (09:55)
[2020-06-28] MEDS ORDERED: FAMOTIDINE 20 MG/2 ML VIAL IV STA (09:55)
[2020-06-28] MEDS ORDERED: SODIUM CHLORIDE 0.9% 1,000 ML IV STA (09:55)
--- NOTE | 2020-06-28 09:59 | ED ---
Abdominal Pain HPI - General Chief Complaint: Abdominal Pain Stated Complaint: Abd Pain Time Seen by Provider: 06/28/20 09:36 Source: patient, RN notes reviewed Mode of arrival: ambulatory Limitations: no limitations - History of Present Illness Initial Comments: 25-year-old female presents emergency from chief complaint of right-sided abdominal pain. Patient states that she started him some discomfort in her periumbilical region last night but states now on the right lower states severe pain. Patient states she can't touch area is worse with movement. Patient does admit slight nausea denies any diarrhea constipation no dysuria. She states she had a low-grade temp at home. Patient denies any other specific complaints. Patient does have history of cholecystectomy. - Related Data Home Medications Medication Instructions Recorded Confirmed Albuterol Inhaler (Mhu) [Ventolin 2 puff INHALATION RT-Q6H PRN 08/02/18 05/11/19 Hfa Inhaler (Mhu)] Albuterol Nebulized [Ventolin 2.5 mg INHALATION RT-Q4H PRN 08/02/18 05/11/19 Nebulized] Cetirizine HCl 10 mg PO DAILY MDD 10 mg 01/03/19 05/11/19 Mkm-Lgwf-Mikmx Acid 1 each PO DAILY MDD 1 tab 03/02/19 05/11/19 [-U Capsule (formulary)] Amoxicillin 1 tab PO DAILY 05/11/19 05/11/19 Cetirizine HCl 1 tab PO DAILY 06/03/19 06/21/19 Pnv,Calcium 72/Iron/Folic Acid 1 tab PO DAILY 06/03/19 06/21/19 [ Plus Tablet] Sertraline [Zoloft] 1 tab PO DAILY 06/03/19 06/21/19 Albuterol Inhaler (Mhu) [Ventolin 1 - 2 puff INHALATION RT-Q6H PRN 06/21/19 06/21/19 Hfa Inhaler (Mhu)] Albuterol Nebulized [Ventolin 2.5 mg INHALATION RT-Q8H PRN 06/21/19 06/21/19 Nebulized] Ipratropium-Albuterol Nebulize 3 ml INHALATION RT-Q8H PRN 06/21/19 06/21/19 [Duoneb 0.5 mg-3 mg/3 ml Soln] Previous Rx's Medication Instructions Recorded Ondansetron [Zofran] 4 mg PO Q8HR PRN 14 Days tab 01/07/19 HYDROcodone/APAP 5-325MG [[place] 1 tab PO Q6HR PRN 3 Days #10 tab 06/22/19 5-325] Nitrofurantoin Monohyd/M-Cryst 100 mg PO Q12HR #14 cap 06/28/20 [Macrobid] Allergies Allergy/AdvReac Type Severity Reaction Status Date / Time azithromycin Allergy Nausea & Verified 06/28/20 09:26 Vomiting banana Allergy Nausea & Verified 06/28/20 09:26 Vomiting ciprofloxacin [From Cipro] Allergy Rash/Hives Verified 06/28/20 09:26 coconut Allergy Anaphylaxis Verified 06/28/20 09:26 coconut oil Allergy Anaphylaxis Verified 06/28/20 09:26 ibuprofen [From Motrin] Allergy Anaphylaxis Verified 06/28/20 09:26 Iodinated Contrast Media Allergy Unknown Verified 06/28/20 09:26 [Iodinated Contrast- Oral and IV Dye] latex Allergy Unknown Verified 06/28/20 09:26 mold Allergy Unknown Verified 06/28/20 09:26 Mushroom Allergy Anaphylaxis Verified 06/28/20 09:26 orange Allergy Nausea & Verified 06/28/20 09:26 Vomiting orange juice [[place]] Allergy Nausea & Verified 06/28/20 09:26 Vomiting pollen extracts Allergy Unknown Verified 06/28/20 09:26 tomato Allergy Anaphylaxis Verified 06/28/20 09:26 cephalexin [From Keflex] AdvReac Rash/Hives Verified 06/28/20 09:26 Review of Systems ROS Statement: Those systems with pertinent positive or pertinent negative responses have been documented in the HPI. ROS Other: All systems not noted in ROS Statement are negative. Past Medical History Past Medical History: Asthma, Blood Disorder, Cancer, Eye Disorder, Hearing Disorder / Deafness, Pneumonia, Seizure Disorder, Skin Disorder Additional Past Medical History / Comment(s): anemia, lymphatic ca History of Any Multi-Drug Resistant Organisms: MRSA Date of last positivie culture/infection: 2014 MDRO Source:: chest Past Surgical History: Adenoidectomy, Breast Surgery, Section, Cholecystectomy, Ear Surgery, Orthopedic Surgery Additional Past Surgical History / Comment(s): B breast reduction, tubes in ears Past Anesthesia/Blood Transfusion Reactions: No Reported Reaction, Postoperative Nausea & Vomiting (PONV) Past Psychological History: Bipolar Smoking Status: Never smoker Past Alcohol Use History: None Reported Past Drug Use History: None Reported - Past Family History Mother Family Medical History: Coronary Artery Disease (CAD), Deep Vein Thrombosis (DVT), Hyperlipidemia General Exam Limitations: no limitations General appearance: alert, in no apparent distress Head exam: Present: atraumatic, normocephalic, normal inspection Eye exam: Present: normal appearance, PERRL, EOMI. Absent: scleral icterus, conjunctival injection, periorbital swelling ENT exam: Present: normal exam, normal oropharynx, mucous membranes moist Neck exam: Present: normal inspection, full ROM. Absent: tenderness, meningismus, lymphadenopathy Respiratory exam: Present: normal lung sounds bilaterally. Absent: respiratory distress, wheezes, rales, rhonchi, stridor Cardiovascular Exam: Present: regular rate, normal rhythm, normal heart sounds. Absent: systolic murmur, diastolic murmur, rubs, gallop, clicks GI/Abdominal exam: Present: soft, tenderness (Moderate right lower quadrant), normal bowel sounds. Absent: distended, guarding, rebound, rigid Back exam: Absent: CVA tenderness (R), CVA tenderness (L) Neurological exam: Present: alert, oriented X3 Skin exam: Present: warm, dry, intact, normal color. Absent: rash Course Vital Signs 06/28/20 06/28/20 09:23 11:43 Temperature 98.8 F 98.7 F Pulse Rate 89 86 Respiratory 18 18 Rate Blood Pressure 145/82 109/59 O2 Sat by Pulse 98 99 Oximetry Medical Decision Making - Medical Decision Making 25-year-old female presented for abdominal pain patient's CT shows evidence of ovarian cyst urinalysis reveals evidence urinary tract infection. Normal appendix. Patient's laboratory essentially unremarkable patient we discharged in stable condition return parameters discussed. - Lab Data Result diagrams: 06/28/20 10:16 06/28/20 10:16 Lab Results 06/28/20 06/28/20 06/28/20 Range/Units 10:16 10:16 10:16 WBC 11.9 H (3.8-10.6) k/uL RBC 5.09 (3.80-5.40) m/uL Hgb 14.4 (11.4-16.0) gm/dL Hct 41.7 (34.0-46.0) % MCV 82.0 (80.0-100.0) fL MCH 28.2 (25.0-35.0) pg MCHC 34.5 (31.0-37.0) g/dL RDW 13.0 (11.5-15.5) % Plt Count 267 (150-450) k/uL MPV 7.4 Neutrophils % 63 % Lymphocytes % 25 % Monocytes % 5 % Eosinophils % 5 % Basophils % 1 % Neutrophils # 7.5 (1.3-7.7) k/uL Lymphocytes # 3.0 (1.0-4.8) k/uL Monocytes # 0.6 (0-1.0) k/uL Eosinophils # 0.5 (0-0.7) k/uL Basophils # 0.1 (0-0.2) k/uL Sodium (137-145) mmol/L Potassium (3.5-5.1) mmol/L Chloride (98-107) mmol/L Carbon Dioxide (22-30) mmol/L Anion Gap mmol/L BUN (7-17) mg/dL Creatinine (0.52-1.04) mg/dL Est GFR (CKD-EPI)AfAm (>60 ml/min/1.73 sqM) Est GFR (CKD-EPI)NonAf (>60 ml/min/1.73 sqM) Glucose (74-99) mg/dL Plasma Lactic Acid Sam (0.7-2.0) mmol/L Calcium (8.4-10.2) mg/dL Total Bilirubin (0.2-1.3) mg/dL AST (14-36) U/L ALT (4-34) U/L Alkaline Phosphatase (38-126) U/L Total Protein (6.3-8.2) g/dL Albumin (3.5-5.0) g/dL Lipase (23-300) U/L Urine Color Yellow Urine Appearance Cloudy H (Clear) Urine pH 5.5 (5.0-8.0) Ur Specific [place] 1.030 (1.001-1.035) Urine Protein Trace H (Negative) Urine Glucose (UA) Negative (Negative) Urine Ketones Negative (Negative) Urine Blood Negative (Negative) Urine Nitrite Negative (Negative) Urine Bilirubin Negative (Negative) Urine Urobilinogen <2.0 (<2.0) mg/dL Ur Leukocyte Esterase Large H (Negative) Urine WBC 50 H (0-5) /hpf Ur Squamous Epith Cells 21 H (0-4) /hpf Urine Bacteria Rare H (None) /hpf Urine Mucus Few H (None) /hpf Urine HCG, Qual Not Detected (Not Detectd) 06/28/20 06/28/20 Range/Units 10:16 10:16 WBC (3.8-10.6) k/uL RBC (3.80-5.40) m/uL Hgb (11.4-16.0) gm/dL Hct (34.0-46.0) % MCV (80.0-100.0) fL MCH (25.0-35.0) pg MCHC (31.0-37.0) g/dL RDW (11.5-15.5) % Plt Count (150-450) k/uL MPV Neutrophils % % Lymphocytes % % Monocytes % % Eosinophils % % Basophils % % Neutrophils # (1.3-7.7) k/uL Lymphocytes # (1.0-4.8) k/uL Monocytes # (0-1.0) k/uL Eosinophils # (0-0.7) k/uL Basophils # (0-0.2) k/uL Sodium 136 L (137-145) mmol/L Potassium 4.3 (3.5-5.1) mmol/L Chloride 106 (98-107) mmol/L Carbon Dioxide 21 L (22-30) mmol/L Anion Gap 9 mmol/L BUN 15 (7-17) mg/dL Creatinine 0.58 (0.52-1.04) mg/dL Est GFR (CKD-EPI)AfAm >90 (>60 ml/min/1.73 sqM) Est GFR (CKD-EPI)NonAf >90 (>60 ml/min/1.73 sqM) Glucose 103 H (74-99) mg/dL Plasma Lactic Acid Sam 1.1 (0.7-2.0) mmol/L Calcium 9.3 (8.4-10.2) mg/dL Total Bilirubin 0.5 (0.2-1.3) mg/dL AST 31 (14-36) U/L ALT 19 (4-34) U/L Alkaline Phosphatase 75 (38-126) U/L Total Protein 7.0 (6.3-8.2) g/dL Albumin 3.9 (3.5-5.0) g/dL Lipase 88 (23-300) U/L Urine Color Urine Appearance (Clear) Urine pH (5.0-8.0) Ur Specific [place] (1.001-1.035) Urine Protein (Negative) Urine Glucose (UA) (Negative) Urine Ketones (Negative) Urine Blood (Negative) Urine Nitrite (Negative) Urine Bilirubin (Negative) Urine Urobilinogen (<2.0) mg/dL Ur Leukocyte Esterase (Negative) Urine WBC (0-5) /hpf Ur Squamous Epith Cells (0-4) /hpf Urine Bacteria (None) /hpf Urine Mucus (None) /hpf Urine HCG, Qual (Not Detectd) Disposition Clinical Impression: Ovarian cyst, Urinary tract infection Disposition: HOME SELF-CARE Condition: Stable Instructions (If sedation given, give patient instructions): Urinary Tract Infection in Women (ED), Ovarian Cyst (ED) Additional Instructions: Please return to the Emergency Department if symptoms worsen or any other concerns. Prescriptions: Nitrofurantoin Monohyd/M-Cryst [Macrobid] 100 mg PO Q12HR #14 cap Is patient prescribed a controlled substance at d/c from ED?: No Referrals: Arron Khan MD [Primary Care Provider] - 1-2 days Time of Disposition: 11:59
[2020-06-28 10:25] LABS: Basophils # (A) 0.1 k/uL (0-0.2); Basophils % (A) 1 %; Eosinophils # (A) 0.5 k/uL (0-0.7); Eosinophils % (A) 5 %; HCT 41.7 % (34.0-46.0); HGB 14.4 gm/dL (11.4-16.0); Lymphocytes % (A) 25 %; MCH 28.2 pg (25.0-35.0); MCHC 34.5 g/dL (31.0-37.0); Mean Platelet Volume 7.4; Monocytes # (A) 0.6 k/uL (0-1.0); Monocytes % (A) 5 %; Neutrophils # (A) 7.5 k/uL (1.3-7.7); Neutrophils % (A) 63 %; Platelet Count 267 k/uL (150-450); RBC 5.09 m/uL (3.80-5.40); WBC 11.9 k/uL (3.8-10.6)
[2020-06-28 10:30] LABS: Appearance,Urine Cloudy (Clear); Bacteria,Urine Rare /hpf; Bilirubin,Urine Negative (Negative); Blood,Urine Negative (Negative); Color,Urine Yellow; Glucose,Urine (UA) Negative (Negative); Ketones,Urine Negative (Negative); Leukocyte Esterase,Urine Large (Negative); Mucus,Urine Few /hpf; Nitrite,Urine Negative (Negative); PH, Urine 5.5 (5.0-8.0); Protein,Urine Trace (Negative); Squamous Epithelial Cell,Urine 21 /hpf (0-4); Urobilinogen,Urine <2.0 mg/dL (<2.0); WBC,Urine 50 /hpf (0-5)
[2020-06-28 10:39] LABS: ALT 19 U/L (4-34); AST 31 U/L (14-36); African American GFR (CKD) >90 (>60 ml/min/1.73 sqM); Albumin 3.9 g/dL (3.5-5.0); Alkaline Phosphatase 75 U/L (38-126); Anion Gap 9 mmol/L; Blood Urea Nitrogen 15 mg/dL (7-17); Calcium 9.3 mg/dL (8.4-10.2); Carbon Dioxide 21 mmol/L (22-30); Chloride 106 mmol/L (98-107); Glucose 103 mg/dL (74-99); Lipase 88 U/L (23-300); Non-African American GFR(CKD) >90 (>60 ml/min/1.73 sqM); Potassium 4.3 mmol/L (3.5-5.1); Sodium 136 mmol/L (137-145); Total Bilirubin 0.5 mg/dL (0.2-1.3)
--- NOTE | 2020-06-28 11:39 | CT ---
EXAMINATION TYPE: CT abdomen pelvis w con DATE OF EXAM: 06/28/2020 COMPARISON: NONE HISTORY: 25-year-old female with RLQ pain TECHNIQUE: Contiguous axial scanning of the abdomen and pelvis following administration of 100 ml Iso nohemi 300 IV contrast. Delayed images through the kidneys and coronal/sagittal reconstructions perform ed. CT DLP: 1136.1 mGycm Automated exposure control for dose reduction was used. FINDINGS: Heart normal size without pericardial effusion. Lung bases clear without pleural effusion. Liver enlarged at 20.2 cm with diffuse low-attenuation. No focal lesion or biliary ductal dilatation. Portal venous system is patent. Cholecystectomy clips. Adrenal glands, kidneys, spleen, and pancreas within normal limits. Some scattered prominent but nonenlarged left mid abdominal mesenteric lymph nodes measuring up to 7 mm. No dilated small bowel, free fluid, or free air. Short segments of a normal appendix are visualized. There is mild to moderate stool burden. No delonte lonic inflammatory change. Both ovaries are visualized. There is a 2.0 cm dominant follicle or functional cyst of the left ovary . Pelvic free fluid likely physiologic. No pelvic lymphadenopathy. Bones: There is some congenital maldevelopment at the lumbosacral junction. L5 shows absent right-opal ed pedicle and hypoplastic posterior elements. Accentuated kyphosis and posterior element articulatio n between L4 and S1. IMPRESSION: 1. HEPATOMEGALY AT 20.2 CM WITH HEPATIC STEATOSIS. 2. A 2.2 CM DOMINANT FOLLICLE OR FUNCTIONAL CYST IN THE LEFT OVARY. TRACE CUL-DE-SAC FREE FLUID LIKEL Y PHYSIOLOGIC. 3. STATUS POST CHOLECYSTECTOMY. 4. CONGENITAL MALDEVELOPMENT OF THE LUMBOSACRAL JUNCTION. L5 SHOWS HYPOPLASTIC POSTERIOR ELEMENTS. TH ERE IS AN ACCENTUATED KYPHOSIS HERE AND THE POSTERIOR ELEMENTS ARTICULATE BETWEEN L4 AND S1. CONSIDER OUTPATIENT NEUROSURGERY EVALUATION.
[2020-06-28 11:44] VITALS: BP 109/59; PULSE 86; TEMP 98.7
== END 2020-06-28 12:00 | disposition home or self-care (01) ==
LOC: EC 09:19
DX: N39.0 Urinary tract infection, site not specified (principal); N83.202 Unspecified ovarian cyst, left side; J45.909 Unspecified asthma, uncomplicated; H91.90 Unspecified hearing loss, unspecified ear; F31.9 Bipolar disorder, unspecified; Z79.899 Other long term (current) drug therapy; Z88.1 Allergy status to other antibiotic agents; Z91.018 Allergy to other foods; Z91.041 Radiographic dye allergy status; Z91.040 Latex allergy status; Z91.048 Other nonmedicinal substance allergy status; Z88.6 Allergy status to analgesic agent; Z85.79 Personal history of other malignant neoplasms of lymphoid, hematopoietic and related tissues; Z90.49 Acquired absence of other specified parts of digestive tract
CPT/HCPCS: 36415; 80053; 83605; 83690; 85025; 81001; 81025; 87086; 74177; 99284; 96374; 96375 ×4; 96361; J2270; J1200; J2930; J2405; Q9967

== ENCOUNTER 2020-07-08 19:22 | Emergency (ER) | payer OTHER ==
[2020-07-08] MEDS ORDERED: MORPHINE SULFATE 2 MG/ML SYRINGE IVP STA (19:50)
[2020-07-08] MEDS ORDERED: SODIUM CHLORIDE 0.9% 1,000 ML IV STA (19:50)
[2020-07-08] MEDS ORDERED: ONDANSETRON 4 MG/2 ML VIAL IVP STA (19:50)
[2020-07-08 20:07] LABS: Basophils # (A) 0.1 k/uL (0-0.2); Basophils % (A) 1 %; Eosinophils # (A) 0.4 k/uL (0-0.7); Eosinophils % (A) 4 %; HCT 41.8 % (34.0-46.0); HGB 14.2 gm/dL (11.4-16.0); Lymphocytes # (A) 3.5 k/uL (1.0-4.8); Lymphocytes % (A) 29 %; MCH 27.9 pg (25.0-35.0); MCHC 34.1 g/dL (31.0-37.0); Mean Platelet Volume 7.1; Monocytes # (A) 0.5 k/uL (0-1.0); Monocytes % (A) 4 %; Neutrophils # (A) 7.1 k/uL (1.3-7.7); Neutrophils % (A) 61 %; Platelet Count 307 k/uL (150-450); RDW 13.2 % (11.5-15.5); WBC 11.7 k/uL (3.8-10.6)
[2020-07-08 20:15] LABS: ALT 20 U/L (4-34); AST 26 U/L (14-36); African American GFR (CKD) >90 (>60 ml/min/1.73 sqM); Albumin 4.3 g/dL (3.5-5.0); Alkaline Phosphatase 83 U/L (38-126); Amylase 52 U/L (30-110); Anion Gap 9 mmol/L; Blood Urea Nitrogen 13 mg/dL (7-17); Calcium 9.5 mg/dL (8.4-10.2); Carbon Dioxide 25 mmol/L (22-30); Chloride 104 mmol/L (98-107); Glucose 116 mg/dL (74-99); Lipase 75 U/L (23-300); Non-African American GFR(CKD) >90 (>60 ml/min/1.73 sqM); Potassium 3.9 mmol/L (3.5-5.1); Sodium 138 mmol/L (137-145); Total Bilirubin 0.4 mg/dL (0.2-1.3); Total Protein 7.4 g/dL (6.3-8.2)
[2020-07-08 20:20] LABS: Amorphous Sediment,Urine Rare /hpf; Appearance,Urine Cloudy (Clear); Bilirubin,Urine Negative (Negative); Blood,Urine Moderate (Negative); Color,Urine Yellow; Glucose,Urine (UA) Negative (Negative); Ketones,Urine Negative (Negative); Leukocyte Esterase,Urine Negative (Negative); Mucus,Urine Rare /hpf; Nitrite,Urine Negative (Negative); PH, Urine 6.5 (5.0-8.0); Protein,Urine Negative (Negative); RBC,Urine 1 /hpf (0-5); Specific Gravity,Urine 1.019 (1.001-1.035); Squamous Epithelial Cell,Urine 1 /hpf (0-4); Urobilinogen,Urine <2.0 mg/dL (<2.0); WBC,Urine 1 /hpf (0-5)
--- NOTE | 2020-07-08 21:11 | US ---
EXAMINATION TYPE: US transvaginal DATE OF EXAM: 07/08/2020 COMPARISON: CT 2020 CLINICAL HISTORY: RLQ pain. Bleeding x 1 day, right pelvic pain x 2 weeks, 4, para 2, miscarr iage 2, history of . TECHNIQUE: Transvaginal ER exam. Date of LMP: 06/05/2020 EXAM MEASUREMENTS: Uterus: 6.8 x 4.0 x 5.0 cm Endometrial Stripe: 0.4 cm Right Ovary: 2.9 x 2.6 x 2.6 cm Left Ovary: 3.1 x 1.6 x 1.4 cm 1. Uterus: retroverted, mildly heterogeneous . No definite focal lesions. 2. Endometrium: appears wnl 3. Right Ovary: multiple follicles 4. Left Ovary: multiple follicles Spectral, color and waveform doppler imaging shows good arterial flow within the ovaries; unable to obtain venous flow within the ovaries. 5. Bilateral Adnexa: wnl 6. Posterior cul-de-sac: wnl IMPRESSION: No definite acute abnormality of the pelvic ultrasound. Ovarian follicles. No convincing evidence of ovarian torsion.
[2020-07-08] MEDS ORDERED: HYDROmorphone 0.5 MG/0.5 ML SYRINGE IVP STA (21:17)
[2020-07-08] MEDS ORDERED: FAMOTIDINE 20 MG/2 ML VIAL IV STA (21:22)
[2020-07-08] MEDS ORDERED: methylPREDNISolone SOD SUCCI 125 MG/2 ML VIAL IV STA (21:22)
[2020-07-08] MEDS ORDERED: diphenhydrAMINE 50 MG/ML 1 ML VIAL IVP STA (21:22)
--- NOTE | 2020-07-08 21:30 | ED ---
General Adult HPI - General Chief complaint: Abdominal Pain Stated complaint: Side & Back pain Source: patient, RN notes reviewed Mode of arrival: ambulatory Limitations: no limitations - History of Present Illness Initial comments: 25-year-old female with a past medical history of anemia, lymphatic cancer, cholecystectomy presents to the emergency room for a chief complaint of abdominal pain. Patient reports she has had right lower quadrant abdominal pain for about 2 weeks now. States the pain is getting worse. States that she was told she has an ovarian cyst 2 weeks ago. Patient denies diarrhea. Denies nausea or vomiting. States the pain is constant. States it caused her to pass out today. Patient states she did hit her head when she passed out and has been having severe persistent headache since that time. States the abdominal pain also radiates to her back. Patient states she did take antibiotics for urinary tract infection which she finished. She denies fevers.Patient has no other complaints at this time including shortness of breath, chest pain, nausea or vomiting,or visual changes. - Related Data Home Medications Medication Instructions Recorded Confirmed Cetirizine HCl 1 tab PO HS 06/03/19 07/08/20 Ipratropium-Albuterol Nebulize 3 ml INHALATION RT-Q8H PRN 06/21/19 07/08/20 [Duoneb 0.5 mg-3 mg/3 ml Soln] Acetaminophen Tab [Tylenol Tab] 1,000 mg PO Q6HR PRN 07/08/20 07/08/20 Albuterol Inhaler [Ventolin Hfa 2 puff INHALATION RT-QID PRN 07/08/20 07/08/20 Inhaler] Albuterol Nebulized [Ventolin 2.5 mg INHALATION Q6H PRN 07/08/20 07/08/20 Nebulized] Cholestyramine (with Sugar) 4 gm PO HS 07/08/20 07/08/20 [Questran Packet] Montelukast [Singulair] 10 mg PO HS 07/08/20 07/08/20 Multivitamins, Thera [Multivitamin 1 tab PO HS 07/08/20 07/08/20 (formulary)] Vilazodone HCl [Viibryd] 20 mg PO BID 07/08/20 07/08/20 Allergies Allergy/AdvReac Type Severity Reaction Status Date / Time azithromycin Allergy Nausea & Verified 07/08/20 19:33 Vomiting banana Allergy Nausea & Verified 07/08/20 19:33 Vomiting ciprofloxacin [From Cipro] Allergy Rash/Hives Verified 07/08/20 19:33 coconut Allergy Anaphylaxis Verified 07/08/20 19:33 coconut oil Allergy Anaphylaxis Verified 07/08/20 19:33 ibuprofen [From Motrin] Allergy Anaphylaxis Verified 07/08/20 19:33 Iodinated Contrast Media Allergy Unknown Verified 07/08/20 19:33 [Iodinated Contrast- Oral and IV Dye] latex Allergy Unknown Verified 07/08/20 19:33 mold Allergy Unknown Verified 07/08/20 19:33 Mushroom Allergy Anaphylaxis Verified 07/08/20 19:33 orange Allergy Nausea & Verified 07/08/20 19:33 Vomiting orange juice [[place]] Allergy Nausea & Verified 07/08/20 19:33 Vomiting pollen extracts Allergy Unknown Verified 07/08/20 19:33 tomato Allergy Anaphylaxis Verified 07/08/20 19:33 cephalexin [From Keflex] AdvReac Rash/Hives Verified 07/08/20 19:33 Review of Systems ROS Statement: Those systems with pertinent positive or pertinent negative responses have been documented in the HPI. ROS Other: All systems not noted in ROS Statement are negative. Past Medical History Past Medical History: Asthma, Blood Disorder, Cancer, Eye Disorder, Hearing Disorder / Deafness, Pneumonia, Seizure Disorder, Skin Disorder Additional Past Medical History / Comment(s): anemia, lymphatic ca History of Any Multi-Drug Resistant Organisms: MRSA Date of last positivie culture/infection: 2014 MDRO Source:: chest Past Surgical History: Adenoidectomy, Breast Surgery, Section, Cyndi cystectomy, Ear Surgery, Orthopedic Surgery Additional Past Surgical History / Comment(s): B breast reduction, tubes in ears Past Anesthesia/Blood Transfusion Reactions: No Reported Reaction, Postoperative Nausea & Vomiting (PONV) Past Psychological History: Bipolar Smoking Status: Never smoker Past Alcohol Use History: None Reported Past Drug Use History: None Reported - Past Family History Mother Family Medical History: Coronary Artery Disease (CAD), Deep Vein Thrombosis (DVT), Hyperlipidemia General Exam Limitations: no limitations General appearance: alert, in no apparent distress Head exam: Present: atraumatic, normocephalic, normal inspection Eye exam: Present: normal appearance, PERRL, EOMI. Absent: scleral icterus, conjunctival injection, periorbital swelling ENT exam: Present: normal exam, mucous membranes moist Neck exam: Present: normal inspection, full ROM. Absent: tenderness, meningismus, lymphadenopathy Respiratory exam: Present: normal lung sounds bilaterally. Absent: respiratory distress, wheezes, rales, rhonchi, stridor Cardiovascular Exam: Present: regular rate, normal rhythm, normal heart sounds. Absent: systolic murmur, diastolic murmur, rubs, gallop, clicks GI/Abdominal exam: Present: soft, tenderness (Right lower quadrant tenderness), normal bowel sounds. Absent: distended, guarding, rebound, rigid External exam: Present: normal external exam. Absent: erythema, swelling, lesions, lacerations, ecchymosis Speculum exam: Present: normal speculum exam, vaginal bleeding. Absent: erythema, vaginal discharge, cervical discharge, foreign body, tissue, lacer ation By manual exam: Present: normal by manual exam, adnexal tenderness (Bilateral), uterine tenderness. Absent: cervical motion tenderness, adnexal mass, uterine enlargement Course Vital Signs 07/08/20 07/08/20 19:29 21:30 Temperature 98.4 F 98.3 F Pulse Rate 91 79 Respiratory 18 20 Rate Blood Pressure 140/98 137/87 O2 Sat by Pulse 100 99 Oximetry EKG Findings - EKG Comments: EKG Findings:: Normal sinus rhythm, ventricular rate 91, [place] interval 158, QTC 423 Medical Decision Making - Medical Decision Making Vitals are stable. Patient is well appearing. Patient did have some mild right lower quadrant tenderness on exam. Pelvic exam showed mild tenderness however no significant discharge. Minimal vaginal bleeding noted, patient is on her period. CBC is unremarkable. Slight leukocytosis. CMP is unremarkable as well. Urinalysis does not show any evidence of infection. Covid negative. Trichomonas negative. I did perform a transvaginal ultrasound at first which showed ovarian follicles without convincing evidence of torsion. No definite acute abnormality. Given right-sided abdominal tenderness I did repeat a CT. CT abdomen and pelvis showed no acute abnormality. I did get an EKG as patient can she passed out today, this showed a normal sinus rhythm. CT brain was obtained given patient hit her head and has been having headache since which did not show any evidence of acute intracranial abnormality. Patient was given pain medication, on reevaluation feeling much better. Abdomen much improved. At this time patient can be discharged home to follow up with GI. States she has arty then referred to GI but they states she does not have insurance, she is requesting someone else to see. I will give her Gen. surgery referral as well. She'll return here for any worsening symptoms. - Lab Data Result diagrams: 07/08/20 19:59 07/08/20 19:59 Lab Results 07/08/20 07/08/20 07/08/20 Range/Units 19:59 19:59 20:03 WBC 11.7 H (3.8-10.6) k/uL RBC 5.10 (3.80-5.40) m/uL Hgb 14.2 (11.4-16.0) gm/dL Hct 41.8 (34.0-46.0) % MCV 82.0 (80.0-100.0) fL MCH 27.9 (25.0-35.0) pg MCHC 34.1 (31.0-37.0) g/dL RDW 13.2 (11.5-15.5) % Plt Count 307 (150-450) k/uL MPV 7.1 Neutrophils % 61 % Lymphocytes % 29 % Monocytes % 4 % Eosinophils % 4 % Basophils % 1 % Neutrophils # 7.1 (1.3-7.7) k/uL Lymphocytes # 3.5 (1.0-4.8) k/uL Monocytes # 0.5 (0-1.0) k/uL Eosinophils # 0.4 (0-0.7) k/uL Basophils # 0.1 (0-0.2) k/uL Sodium 138 (137-145) mmol/L Potassium 3.9 (3.5-5.1) mmol/L Chloride 104 (98-107) mmol/L Carbon Dioxide 25 (22-30) mmol/L Anion Gap 9 mmol/L BUN 13 (7-17) mg/dL Creatinine 0.69 (0.52-1.04) mg/dL Est GFR (CKD-EPI)AfAm >90 (>60 ml/min/1.73 sqM) Est GFR (CKD-EPI)NonAf >90 (>60 ml/min/1.73 sqM) Glucose 116 H (74-99) mg/dL Calcium 9.5 (8.4-10.2) mg/dL Total Bilirubin 0.4 (0.2-1.3) mg/dL AST 26 (14-36) U/L ALT 20 (4-34) U/L Alkaline Phosphatase 83 (38-126) U/L Total Protein 7.4 (6.3-8.2) g/dL Albumin 4.3 (3.5-5.0) g/dL Amylase 52 (30-110) U/L Lipase 75 (23-300) U/L Urine Color Yellow Urine Appearance Cloudy H (Clear) Urine pH 6.5 (5.0-8.0) Ur Specific [place] 1.019 (1.001-1.035) Urine Protein Negative (Negative) Urine Glucose (UA) Negative (Negative) Urine Ketones Negative (Negative) Urine Blood Moderate H (Negative) Urine Nitrite Negative (Negative) Urine Bilirubin Negative (Negative) Urine Urobilinogen <2.0 (<2.0) mg/dL Ur Leukocyte Esterase Negative (Negative) Urine RBC 1 (0-5) /hpf Urine WBC 1 (0-5) /hpf Ur Squamous Epith Cells 1 (0-4) /hpf Amorphous Sediment Rare H (None) /hpf Urine Mucus Rare H (None) /hpf Urine HCG, Qual (Not Detectd) Coronavirus (PCR) (Not Detectd) Trichomonas Ag (Rapid) (Negative) 07/08/20 07/08/20 07/08/20 Range/Units 20:03 21:26 21:26 WBC (3.8-10.6) k/uL RBC (3.80-5.40) m/uL Hgb (11.4-16.0) gm/dL Hct (34.0-46.0) % MCV (80.0-100.0) fL MCH (25.0-35.0) pg MCHC (31.0-37.0) g/dL RDW (11.5-15.5) % Plt Count (150-450) k/uL MPV Neutrophils % % Lymphocytes % % Monocytes % % Eosinophils % % Basophils % % Neutrophils # (1.3-7.7) k/uL Lymphocytes # (1.0-4.8) k/uL Monocytes # (0-1.0) k/uL Eosinophils # (0-0.7) k/uL Basophils # (0-0.2) k/uL Sodium (137-145) mmol/L Potassium (3.5-5.1) mmol/L Chloride (98-107) mmol/L Carbon Dioxide (22-30) mmol/L Anion Gap mmol/L BUN (7-17) mg/dL Creatinine (0.52-1.04) mg/dL Est GFR (CKD-EPI)AfAm (>60 ml/min/1.73 sqM) Est GFR (CKD-EPI)NonAf (>60 ml/min/1.73 sqM) Glucose (74-99) mg/dL Calcium (8.4-10.2) mg/dL Total Bilirubin (0.2-1.3) mg/dL AST (14-36) U/L ALT (4-34) U/L Alkaline Phosphatase (38-126) U/L Total Protein (6.3-8.2) g/dL Albumin (3.5-5.0) g/dL Amylase (30-110) U/L Lipase (23-300) U/L Urine Color Urine Appearance (Clear) Urine pH (5.0-8.0) Ur Specific [place] (1.001-1.035) Urine Protein (Negative) Urine Glucose (UA) (Negative) Urine Ketones (Negative) Urine Blood (Negative) Urine Nitrite (Negative) Urine Bilirubin (Negative) Urine Urobilinogen (<2.0) mg/dL Ur Leukocyte Esterase (Negative) Urine RBC (0-5) /hpf Urine WBC (0-5) /hpf Ur Squamous Epith Cells (0-4) /hpf Amorphous Sediment (None) /hpf Urine Mucus (None) /hpf Urine HCG, Qual Not Detected (Not Detectd) Coronavirus (PCR) Not Detected (Not Detectd) Trichomonas Ag (Rapid) Negative (Negative) Disposition Clinical Impression: Abdominal pain Disposition: HOME SELF-CARE Condition: Good Instructions (If sedation given, give patient instructions): Abdominal Pain (ED) Additional Instructions: Please follow up with GI or Gen. surgery. If you have any worsening symptoms return to the emergency room. Is patient prescribed a controlled substance at d/c from ED?: No Referrals: Arron Khan MD [Primary Care Provider] - 1-2 days Morris Thompson DO [Doctor of Osteopathic Medicine] - 1-2 days Sanjay Vallecillo MD [STAFF PHYSICIAN] - 1-2 days Time of Disposition: 22:45
--- NOTE | 2020-07-08 22:12 | CT ---
EXAMINATION TYPE: CT brain wo con DATE OF EXAM: 07/08/2020 COMPARISON: None available. HISTORY: syncope CT DLP: 1062.4 mGycm. Automated Exposure Control for Dose Reduction was Utilized. TECHNIQUE: CT scan of the head is performed without contrast. FINDINGS: There is no acute intracranial hemorrhage, mass effect, or midline shift identified. The ventricles and sulci are within normal limits in size. The globes are intact and the visualized sin uses are clear. IMPRESSION: No acute intracranial hemorrhage, mass effect, or midline shift is seen.
--- NOTE | 2020-07-08 22:16 | CT ---
EXAMINATION TYPE: CT abdomen pelvis w con DATE OF EXAM: 07/08/2020 COMPARISON: 06/28/2020. HISTORY: pelvic pain CT DLP: 1106.5 mGycm Automated exposure control for dose reduction was used. TECHNIQUE: Helical acquisition of images was performed from the lung bases through the pelvis. CONTRAST: Performed without Oral Contrast and with IV Contrast, patient injected with 100 mL of Isovue 300. FINDINGS: LUNG BASES: No significant abnormality is appreciated. LIVER/GB: No significant abnormality is appreciated. Cholecystectomy. PANCREAS: No significant abnormality is seen. SPLEEN: No significant abnormality is seen. ADRENALS: No significant abnormality is seen. KIDNEYS: No significant abnormality is seen. FREE AIR: No free air is visualized. RETROPERITONEAL ADENOPATHY: None visualized REPRODUCTIVE ORGANS: No significant abnormality is seen URINARY BLADDER: No significant abnormality is seen. PELVIC ADENOPATHY: Interval near-complete resolution of previous left ovarian cyst without significa nt residual. OSSEOUS STRUCTURES: No acute abnormality is seen. Stable lumbosacral transitional anatomy with hypop lastic L5 vertebral body. BOWEL: No significant abnormality is seen. OTHER: None IMPRESSION: NO ACUTE ABNORMAL ACTIVITY. INTERVAL NEAR COMPLETE RESOLUTION OF PREVIOUS LEFT OVARIAN CYST.
[2020-07-08 23:01] VITALS: BP 129/86; PULSE 81; RESP 18; TEMP 98.8
== END 2020-07-08 23:00 | disposition home or self-care (01) ==
LOC: EC 19:22
DX: R10.31 Right lower quadrant pain (principal); Z20.822 Contact with and (suspected) exposure to COVID-19; J45.909 Unspecified asthma, uncomplicated; F31.9 Bipolar disorder, unspecified; Z79.899 Other long term (current) drug therapy
CPT/HCPCS: 36415; 93005; 80053; 82150; 83690; 85025; 81001; 81025; 87808; 87491; 87591; 87635; 93975; 76830; 70450; 74177; 99284; 96374; 96375; 96361; J1200; J2930; J2405; J2270; J1170; Q9967

== ENCOUNTER 2020-09-08 09:53 | Day surgery (SDC) | payer OTHER ==
[2020-09-07 11:16] VITALS: BMI 37.5
[~2020-09-08 09:53] MED LIST: LACTATED RINGERS 1,000 ML IV SCH
[2020-09-08 10:17] VITALS: TEMP 97.6
[2020-09-08] MEDS ORDERED: LACTATED RINGERS 1,000 ML IV ONE (10:19)
[2020-09-08 10:34] LABS: Glucose,Whole Blood 107 mg/dL (75-99)
[2020-09-08] MEDS ORDERED: PROPOFOL 10 MG/ML 20 ML VIAL IV ONE (11:35)
--- NOTE | 2020-09-08 12:06 | P.PCN ---
Date of Procedure: 09/08/20 Description of Procedure: Brief history: Patient is a pleasant 25-year-old female presenting for outpatient EGD and colonoscopy for symptoms of nausea and diarrhea. She is status post cholecystectomy in the past. She reports her umbilical abdominal pain, frequent loose bowel movements with blood in her bowel movements. She also has frequent nausea and episodes of vomiting. Procedure performed: Esophagogastroduodenoscopy with biopsy Colonoscopy with polypectomy and biopsy Estimated blood loss: Minimal. Preoperative diagnosis: Nausea, abdominal pain, diarrhea Anesthesia: MAC Procedure: After informed consent was obtained from the patient was brought into the endoscopy unit and IV sedation was administered by anesthesia under continuous monitoring. Initially upper endoscopy was done. The Olympus GF 190 video endoscope was inserted into the mouth and esophagus intubated without any difficulty and was gradually advanced into the stomach and duodenum and carefully examined. The bulb and second part of the duodenum appeared normal, with biopsies taken to rule out celiac sprue. The scope was then withdrawn into the stomach adequately insufflated with air and upon careful examination the antrum and body, cardia and fundus appeared normal except for some mild scattered erythema in the antrum and body suggestive of mild gastritis with biopsies taken. The scope was then withdrawn into the esophagus. The GE junction was located at 36 cm to the incisors. It appeared regular with no erythema erosions or ulcerations. Rest of the esophagus appeared normal with lower esophageal biopsies taken. Patient tolerated the procedure well. At this time the patient continued to remain sedation. Initial digital rectal examination was normal. Olympus CF 190 video colonoscope was then inserted into the rectum and gradually advanced to the cecum without any difficulty. Careful examination was performed as the scope was gradually being withdrawn. The prep was excellent. The cecum, ascending colon, transverse colon, descending colon, sigmoid colon and rectum appeared normal, With random biopsies taken of the right and left colon in the setting of altered bowel function and diarrhea. The ileum was intubated and also appeared normal. A diminutive 1 mm cecal polyp was removed with cold forcep polypectomy. Retroflexion was performed in the rectum and no lesions were noted, Low-grade internal hemorrhoids seen. Patient tolerated the procedure well. Impression: 1. Mild gastritis. Biopsies of the duodenum, antrum and body and lower esophagus. 2. Diminutive cecal polyp removed with cold forcep polypectomy. Mild sigmoid diverticulosis. Internal hemorrhoids. Otherwise normal-appearing colon from rectum to cecum with normal-appearing terminal ileum and random biopsies taken of the terminal ileum, right colon and left colon. Recommendations: Findings of this examination were discussed with the patient as well as her family. Okay to resume diet. Okay to resume medications. Await pathology from biopsies and polypectomy. Follow-up in the GI clinic in the next 1-2 weeks for results of biopsies. Recommend repeat colonoscopy in 7 years for colon polyps pending pathology from polypectomy.
[2020-09-08 12:24] VITALS: BP 136/92; PULSE 63; RESP 16
[2020-09-08] MEDS ORDERED: ONDANSETRON 4 MG/2 ML VIAL ONE (12:39)
[2020-09-08] MEDS ORDERED: ONDANSETRON 4 MG/2 ML VIAL IVP ONE (12:44)
== END 2020-09-08 13:32 | disposition home or self-care (01) ==
LOC: ORWHC2ENDO 09:53
PROVIDERS: ATTEND Internal Medicine
DX: K29.50 Unspecified chronic gastritis without bleeding (principal); J45.909 Unspecified asthma, uncomplicated; Z88.1 Allergy status to other antibiotic agents; K20.90 Esophagitis, unspecified without bleeding; K63.5 Polyp of colon; Z91.041 Radiographic dye allergy status; Z91.040 Latex allergy status; D64.9 Anemia, unspecified; L30.9 Dermatitis, unspecified
CPT/HCPCS: 88305; 84703; 45380; 43239; J2405; J2704; 45379

== ENCOUNTER 2021-05-16 03:30 | Emergency (ER) | payer OTHER ==
[2021-05-16] MEDS ORDERED: MORPHINE SULFATE 4 MG/ML SYRINGE IV STA (04:37)
[2021-05-16] MEDS ORDERED: ONDANSETRON 4 MG/2 ML VIAL IVP STA (04:37)
[2021-05-16 05:15] VITALS: RESP 18
[2021-05-16 05:57] LABS: Basophils # (A) 0.2 k/uL (0-0.2); Basophils % (A) 1 %; Eosinophils # (A) 0.4 k/uL (0-0.7); Eosinophils % (A) 3 %; HCT 42.5 % (34.0-46.0); HGB 14.4 gm/dL (11.4-16.0); Lymphocytes % (A) 28 %; MCH 29.2 pg (25.0-35.0); MCHC 33.9 g/dL (31.0-37.0); Mean Platelet Volume 7.6; Monocytes # (A) 0.7 k/uL (0-1.0); Monocytes % (A) 5 %; Neutrophils # (A) 9.1 k/uL (1.3-7.7); Neutrophils % (A) 63 %; Platelet Count 299 k/uL (150-450); RBC 4.94 m/uL (3.80-5.40); RDW 12.8 % (11.5-15.5); WBC 14.4 k/uL (3.8-10.6)
[2021-05-16 06:03] LABS: Appearance,Urine Cloudy (Clear); Bacteria,Urine Few /hpf; Bilirubin,Urine Negative (Negative); Blood,Urine Negative (Negative); Color,Urine Light Yellow; Glucose,Urine (UA) Negative (Negative); Ketones,Urine Negative (Negative); Leukocyte Esterase,Urine Large (Negative); Mucus,Urine Rare /hpf; Nitrite,Urine Negative (Negative); Protein,Urine Negative (Negative); RBC,Urine 3 /hpf (0-5); Specific Gravity,Urine 1.018 (1.001-1.035); Squamous Epithelial Cell,Urine 13 /hpf (0-4); Urobilinogen,Urine <2.0 mg/dL (<2.0); WBC,Urine 81 /hpf (0-5)
[2021-05-16 06:10] LABS: ALT 24 U/L (4-34); AST 26 U/L (14-36); African American GFR (CKD) >90 (>60 ml/min/1.73 sqM); Albumin 4.2 g/dL (3.5-5.0); Alkaline Phosphatase 71 U/L (38-126); Amylase 57 U/L (30-110); Anion Gap 8 mmol/L; Blood Urea Nitrogen 16 mg/dL (7-17); Calcium 9.7 mg/dL (8.4-10.2); Carbon Dioxide 24 mmol/L (22-30); Chloride 106 mmol/L (98-107); Glucose 103 mg/dL (74-99); Lipase 50 U/L (23-300); Non-African American GFR(CKD) >90 (>60 ml/min/1.73 sqM); Potassium 4.4 mmol/L (3.5-5.1); Sodium 138 mmol/L (137-145); Total Bilirubin 0.6 mg/dL (0.2-1.3); Total Protein 7.3 g/dL (6.3-8.2)
--- NOTE | 2021-05-16 07:45 | CT ---
EXAMINATION TYPE: CT abdomen pelvis wo con DATE OF EXAM: 05/16/2021 HISTORY: Abdominal pain, history of Crohn's disease. CT DLP: 837.5 mGycm. Automated Exposure Control for Dose Reduction was Utilized. TECHNIQUE: CT scan of the abdomen and pelvis is performed without oral or IV contrast. COMPARISON: Prior CT abdomen and pelvis July 08, 2020 FINDINGS: Within the limitations of a non-contrast study, the following observations are made. LUNG BASES: No significant abnormality is appreciated. LIVER/GB: Liver remains heterogeneously hypodense consistent with diffuse fatty infiltration. Stable mild hepatomegaly with prominent right hepatic lobe. No biliary dilatation. PANCREAS: No significant abnormality is seen. SPLEEN: No significant abnormality is seen. ADRENALS: No significant abnormality is seen. KIDNEYS: No right-sided renal calculi or hydronephrosis. Stable 2 mm nonobstructing calculus lower po le left kidney coronal image 67. No hydronephrosis left kidney. BOWEL: Normal appearing appendix from cecum extending into right pelvis. No suspicious small or large bowel dilatation. A few distal colonic diverticula. No CT evidence for acute diverticulitis. Slightl y redundant sigmoid colon. GENITAL ORGANS: Anteverted uterus redemonstrated. Small amount of free fluid pelvic cul-de-sac axial image 72 redemonstrated. LYMPH NODES: No greater than 1cm abdominal or pelvic lymph nodes are appreciated. OSSEOUS STRUCTURES: Redemonstration of hypoplastic bilateral L1 ribs. Redemonstration of L5 vertebra showing mild to moderate posterior height loss and spurring. There is left-sided pars defect L5 level and hypoplastic right-sided elements of the L5 vertebra. Moderate disc space narrowing and spurring lumbosacral junction with reverse curvature centered at L5 level redemonstrated. OTHER: Vertical scar tissue from the umbilicus extending inferiorly.. IMPRESSION: No suspicious new or acute finding.
[2021-05-16] MEDS ORDERED: SULFAMETHOX-TMP 800-160MG 1 EACH TAB PO STA (08:25)
--- NOTE | 2021-05-16 08:28 | ED ---
General Adult HPI - General Chief complaint: Nausea/Vomiting/Diarrhea Stated complaint: High BP Time Seen by Provider: 05/16/21 04:25 Source: patient, family Mode of arrival: ambulatory Limitations: no limitations - History of Present Illness Onset/Timin -: days(s) Location: abdomen Radiation: non-radiation Quality: dull Consistency: intermittent Improves with: none Worsens with: none Associated Symptoms: nausea/vomiting Treatments Prior to Arrival: none - Related Data Previous Rx's Medication Instructions Recorded Acetaminophen Tab [Tylenol] 650 mg PO Q4HR PRN tab 04/19/21 Albuterol Inhaler [Ventolin Hfa 2 puff INHALATION RT-Q6H PRN #1 04/19/21 Inhaler] each Budesonide/Formoterol Fumarate 2 puff INHALATION RT-BID #1 each 04/19/21 [Symbicort 160-4.5 Mcg Inhaler] Ergocalciferol [Vitamin D2 (1250 1,250 mcg PO Q7D 30 Days cap 04/19/21 Mcg = 85753 Iu)] Loratadine [Claritin] 10 mg PO HS 30 Days tab 04/19/21 Montelukast [Singulair] 10 mg PO HS 30 Days tab 04/19/21 Multivitamins, Thera [Multivitamin 1 each PO DAILY 30 Days tab 04/19/21 (formulary)] QUEtiapine [SEROquel] 50 mg PO 2100 30 Days tab 04/19/21 hydrOXYzine pamoate [Vistaril] 25 mg PO BID PRN 30 Days cap 04/19/21 lamoTRIgine [LaMICtal] 100 mg PO DAILY 30 Days tab 04/19/21 Dicyclomine [Bentyl] 20 mg PO QID #15 tablet 05/16/21 Ondansetron Odt [Zofran ODT] 4 mg PO Q8HR PRN #10 tab 05/16/21 Sulfamethox-Tmp 800-160Mg [Bactrim 1 each PO Q12HR #14 tab 05/16/21 Ds] Allergies Allergy/AdvReac Type Severity Reaction Status Date / Time azithromycin Allergy Nausea & Verified 05/30/21 12:37 Vomiting banana Allergy Nausea & Verified 05/30/21 12:37 Vomiting ciprofloxacin [From Cipro] Allergy Rash/Hives Verified 05/30/21 12:37 coconut Allergy Anaphylaxis Verified 05/30/21 12:37 coconut oil Allergy Anaphylaxis Verified 05/30/21 12:37 ibuprofen [From Motrin] Allergy Anaphylaxis Verified 05/30/21 12:37 Iodinated Contrast Media Allergy Rash/Hives Verified 05/30/21 12:37 [Iodinated Contrast- Oral and IV Dye] latex Allergy Rash/Hives Verified 05/30/21 12:37 mold Allergy Unknown Verified 05/30/21 12:37 Mushroom Allergy Anaphylaxis Verified 05/30/21 12:37 orange Allergy Nausea & Verified 05/30/21 12:37 Vomiting orange juice [[place]] Allergy Nausea & Verified 05/30/21 12:37 Vomiting pollen extracts Allergy Unknown Verified 05/30/21 12:37 tomato Allergy Anaphylaxis Verified 05/30/21 12:37 cephalexin [From Keflex] AdvReac Rash/Hives Verified 05/30/21 12:37 Review of Systems ROS Statement: Those systems with pertinent positive or pertinent negative responses have been documented in the HPI. ROS Other: All systems not noted in ROS Statement are negative. Constitutional: Denies: fever, chills Respiratory: Denies: cough, dyspnea Cardiovascular: Denies: chest pain, palpitations Gastrointestinal: Reports: abdominal pain, nausea, vomiting. Denies: diarrhea, constipation Genitourinary: Reports: frequency. Denies: hematuria Musculoskeletal: Denies: back pain Skin: Denies: rash Neurological: Denies: headache, weakness, numbness Past Medical History Past Medical History: Asthma, Blood Disorder, Cancer, Hearing Disorder / Deafness, Seizure Disorder, Skin Disorder Additional Past Medical History / Comment(s): anemia, lymphatic ca, KL[place] KAAH, ECZEMA, LAST SEIZURE 10 YEARS-PHOTO SENSITIVITY SEIZURE, PAIN ON RLQ WITH DIARRHEA WITH BLOOD IN STOOL, diverticulitis History of Any Multi-Drug Resistant Organisms: MRSA Date of last positivie culture/infection: 2014 MDRO Source:: chest Past Surgical History: Adenoidectomy, Breast Surgery, Section, Cholecystectomy, Ear Surgery, Orthopedic Surgery Additional Past Surgical History / Comment(s): BILAT breast reduction, tubes in ears, ORIF RT ELBOW, HAND AND WRIST, RE OPENING OF GALLBLADDER IN APR AND JUNE 2020 Past Anesthesia/Blood Transfusion Reactions: Postoperative Nausea & Vomiting (PONV) Past Psychological History: Anxiety, Bipolar, Depression, PTSD Smoking Status: Unknown if ever smoked Past Alcohol Use History: None Reported Past Drug Use History: None Reported - Past Family History Mother Family Medical History: Coronary Artery Disease (CAD), Deep Vein Thrombosis (DVT), Hyperlipidemia General Exam Limitations: no limitations General appearance: alert, in no apparent distress Head exam: Present: atraumatic, normocephalic Eye exam: Present: normal appearance. Absent: scleral icterus, conjunctival injection Neck exam: Present: normal inspection Respiratory exam: Present: normal lung sounds bilaterally. Absent: respiratory distress, wheezes, rales, rhonchi, stridor Cardiovascular Exam: Present: regular rate, normal rhythm, normal heart sounds. Absent: systolic murmur, diastolic murmur, rubs, gallop GI/Abdominal exam: Present: soft. Absent: distended, tenderness, guarding, rebound, rigid, mass Extremities exam: Present: normal inspection, normal capillary refill. Absent: pedal edema, calf tenderness Back exam: Present: normal inspection. Absent: CVA tenderness (R), CVA tenderness (L) Neurological exam: Present: alert Skin exam: Present: warm, dry, intact, normal color. Absent: rash Course Vital Signs 05/16/21 05/16/21 05/16/21 03:35 05:03 08:39 Temperature 97.8 F 98 F Pulse Rate 86 72 80 Respiratory 22 18 18 Rate Blood Pressure 145/100 129/90 132/80 O2 Sat by Pulse 98 99 100 Oximetry Medical Decision Making - Lab Data Result diagrams: 05/16/21 05:07 05/16/21 05:07 Lab Results 05/16/21 05/16/21 05/16/21 Range/Units 05:07 05:07 05:07 WBC 14.4 H (3.8-10.6) k/uL RBC 4.94 (3.80-5.40) m/uL Hgb 14.4 (11.4-16.0) gm/dL Hct 42.5 (34.0-46.0) % MCV 86.0 (80.0-100.0) fL MCH 29.2 (25.0-35.0) pg MCHC 33.9 (31.0-37.0) g/dL RDW 12.8 (11.5-15.5) % Plt Count 299 (150-450) k/uL MPV 7.6 Neutrophils % 63 % Lymphocytes % 28 % Monocytes % 5 % Eosinophils % 3 % Basophils % 1 % Neutrophils # 9.1 H (1.3-7.7) k/uL Lymphocytes # 4.0 (1.0-4.8) k/uL Monocytes # 0.7 (0-1.0) k/uL Eosinophils # 0.4 (0-0.7) k/uL Basophils # 0.2 (0-0.2) k/uL Sodium (137-145) mmol/L Potassium (3.5-5.1) mmol/L Chloride (98-107) mmol/L Carbon Dioxide (22-30) mmol/L Anion Gap mmol/L BUN (7-17) mg/dL Creatinine (0.52-1.04) mg/dL Est GFR (CKD-EPI)AfAm (>60 ml/min/1.73 sqM) Est GFR (CKD-EPI)NonAf (>60 ml/min/1.73 sqM) Glucose (74-99) mg/dL Calcium (8.4-10.2) mg/dL Total Bilirubin (0.2-1.3) mg/dL AST (14-36) U/L ALT (4-34) U/L Alkaline Phosphatase (38-126) U/L Total Protein (6.3-8.2) g/dL Albumin (3.5-5.0) g/dL Amylase (30-110) U/L Lipase (23-300) U/L Urine Color Light Yellow Urine Appearance Cloudy H (Clear) Urine pH 7.0 (5.0-8.0) Ur Specific [place] 1.018 (1.001-1.035) Urine Protein Negative (Negative) Urine Glucose (UA) Negative (Negative) Urine Ketones Negative (Negative) Urine Blood Negative (Negative) Urine Nitrite Negative (Negative) Urine Bilirubin Negative (Negative) Urine Urobilinogen <2.0 (<2.0) mg/dL Ur Leukocyte Esterase Large H (Negative) Urine RBC 3 (0-5) /hpf Urine WBC 81 H (0-5) /hpf Ur Squamous Epith Cells 13 H (0-4) /hpf Urine Bacteria Few H (None) /hpf Urine Mucus Rare H (None) /hpf Urine HCG, Qual Not Detected (Not Detectd) 05/16/21 Range/Units 05:07 WBC (3.8-10.6) k/uL RBC (3.80-5.40) m/uL Hgb (11.4-16.0) gm/dL Hct (34.0-46.0) % MCV (80.0-100.0) fL MCH (25.0-35.0) pg MCHC (31.0-37.0) g/dL RDW (11.5-15.5) % Plt Count (150-450) k/uL MPV Neutrophils % % Lymphocytes % % Monocytes % % Eosinophils % % Basophils % % Neutrophils # (1.3-7.7) k/uL Lymphocytes # (1.0-4.8) k/uL Monocytes # (0-1.0) k/uL Eosinophils # (0-0.7) k/uL Basophils # (0-0.2) k/uL Sodium 138 (137-145) mmol/L Potassium 4.4 (3.5-5.1) mmol/L Chloride 106 (98-107) mmol/L Carbon Dioxide 24 (22-30) mmol/L Anion Gap 8 mmol/L BUN 16 (7-17) mg/dL Creatinine 0.69 (0.52-1.04) mg/dL Est GFR (CKD-EPI)AfAm >90 (>60 ml/min/1.73 sqM) Est GFR (CKD-EPI)NonAf >90 (>60 ml/min/1.73 sqM) Glucose 103 H (74-99) mg/dL Calcium 9.7 (8.4-10.2) mg/dL Total Bilirubin 0.6 (0.2-1.3) mg/dL AST 26 (14-36) U/L ALT 24 (4-34) U/L Alkaline Phosphatase 71 (38-126) U/L Total Protein 7.3 (6.3-8.2) g/dL Albumin 4.2 (3.5-5.0) g/dL Amylase 57 (30-110) U/L Lipase 50 (23-300) U/L Urine Color Urine Appearance (Clear) Urine pH (5.0-8.0) Ur Specific [place] (1.001-1.035) Urine Protein (Negative) Urine Glucose (UA) (Negative) Urine Ketones (Negative) Urine Blood (Negative) Urine Nitrite (Negative) Urine Bilirubin (Negative) Urine Urobilinogen (<2.0) mg/dL Ur Leukocyte Esterase (Negative) Urine RBC (0-5) /hpf Urine WBC (0-5) /hpf Ur Squamous Epith Cells (0-4) /hpf Urine Bacteria (None) /hpf Urine Mucus (None) /hpf Urine HCG, Qual (Not Detectd) Disposition Clinical Impression: Urinary tract infection Disposition: HOME SELF-CARE Condition: Good Instructions (If sedation given, give patient instructions): Urinary Tract Infection in Women (ED) Prescriptions: Sulfamethox-Tmp 800-160Mg [Bactrim Ds] 1 each PO Q12HR #14 tab Dicyclomine [Bentyl] 20 mg PO QID #15 tablet Ondansetron Odt [Zofran ODT] 4 mg PO Q8HR PRN #10 tab PRN Reason: Nausea Is patient prescribed a controlled substance at d/c from ED?: No Referrals: Nonstaff,Physician [Primary Care Provider] - 1-2 days
[2021-05-16 08:40] VITALS: BP 132/80; PULSE 80; TEMP 98
== END 2021-05-16 08:50 | disposition home or self-care (01) ==
LOC: EC 03:30
DX: N39.0 Urinary tract infection, site not specified (principal); J45.909 Unspecified asthma, uncomplicated; G40.909 Epilepsy, unspecified, not intractable, without status epilepticus; F31.9 Bipolar disorder, unspecified; F41.9 Anxiety disorder, unspecified; Z79.51 Long term (current) use of inhaled steroids; Z79.899 Other long term (current) drug therapy
CPT/HCPCS: 36415; 80053; 82150; 83690; 85025; 81001; 81025; 74176; 99284; 96374; 96375; J2270; J2405

== ENCOUNTER 2021-05-30 12:29 | Emergency (ER) | payer OTHER ==
[2021-05-30 12:37] VITALS: TEMP 98
--- NOTE | 2021-05-30 13:15 | CT ---
EXAMINATION TYPE: CT brain cspine wo con DATE OF EXAM: 05/30/2021 COMPARISON: CT brain July 08, 2020 HISTORY: Syncopal episode and hit head and neck pain CT DLP: 1500.5 mGycm. Automated Exposure Control for Dose Reduction was Utilized. TECHNIQUE: CT scan of the head and cervical spine are performed without contrast. FINDINGS: There is no acute intracranial hemorrhage, mass effect, or midline shift identified. The ventricles and sulci are within normal limits in size. Yeager-white matter differentiation is maintain ed. Mild mucosal thickening involving ethmoid sinuses and the anterior sphenoid sinuses bilaterally i s now present. Tiny dependent fluid or mucosal thickening in the visualized portion of left maxillary sinus. Globes are intact. The calvarium is intact. Cervical spine is visualized in its entirety from C1 through upper thoracic levels and demonstrates s traightened alignment without evidence of acute fracture or dislocation. Prevertebral soft tissue ap pears within normal limits. The C1-C2 articulation is within normal limits on the coronal images. V ertebral body heights and disc space heights are maintained. Spinal canal is preserved. Axial images show no suspicious abnormality. Upper lungs show no pneumothorax. IMPRESSION: 1. There is no acute fracture or dislocation evident in the cervical spine. 2. No acute intracranial hemorrhage or midline shift is seen.
[2021-05-30 15:26] LABS: Appearance,Urine Cloudy (Clear); Bacteria,Urine Many /hpf; Bilirubin,Urine Negative (Negative); Blood,Urine Negative (Negative); Color,Urine Yellow; Glucose,Urine (UA) Negative (Negative); Ketones,Urine Negative (Negative); Leukocyte Esterase,Urine Large (Negative); Mucus,Urine Rare /hpf; Nitrite,Urine Negative (Negative); PH, Urine 6.5 (5.0-8.0); Protein,Urine Negative (Negative); RBC,Urine 4 /hpf (0-5); Specific Gravity,Urine 1.013 (1.001-1.035); Squamous Epithelial Cell,Urine 7 /hpf (0-4); Urobilinogen,Urine <2.0 mg/dL (<2.0); WBC,Urine 6 /hpf (0-5)
--- NOTE | 2021-05-30 15:59 | XR ---
EXAMINATION TYPE: XR chest 2V DATE OF EXAM: 05/30/2021 COMPARISON: NONE TECHNIQUE: PA and lateral views submitted. HISTORY: Cough FINDINGS: The lungs are clear and there is no pneumothorax, pleural effusion, or focal pneumonia. Heart size normal. No overt failure. Surgical clips in the upper abdomen. IMPRESSION: 1. No acute process.
[2021-05-30 16:00] VITALS: BP 143/86; RESP 22
[2021-05-30] MEDS ORDERED: IPRATROPIUM-ALBUTEROL 3 ML NEB INHALATION STA (16:02)
--- NOTE | 2021-05-30 16:27 | ED ---
General Adult HPI - General Chief complaint: Syncope Stated complaint: fall/head injury/vision issues Time Seen by Provider: 05/30/21 15:17 Source: patient, RN notes reviewed Mode of arrival: ambulatory Limitations: no limitations - History of Present Illness Initial comments: 26-year-old female presents emergency Department chief complaint of head injury. Patient states she is coughing so hard to get lightheaded and dizzy fell backwards striking her head this morning to get a shower. Patient states that she's not believes she lost consciousness she does complain of a headache and had some visual disturbance which is improving. She is more concerned about her headache and her cough congestion. She states she had COVID-19 back in March states that she does have a history of asthma and she's had increasing runny nose which is been clear nasal drainage, wet cough but is nonproductive. Patient has no mental abdominal pain no back pain no extremity weakness or paresthesias. Patient was seen here recently for urinary tract infection. Patient denies any chance . - Related Data Previous Rx's Medication Instructions Recorded Acetaminophen Tab [Tylenol] 650 mg PO Q4HR PRN tab 04/19/21 Albuterol Inhaler [Ventolin Hfa 2 puff INHALATION RT-Q6H PRN #1 04/19/21 Inhaler] each Budesonide/Formoterol Fumarate 2 puff INHALATION RT-BID #1 each 04/19/21 [Symbicort 160-4.5 Mcg Inhaler] Ergocalciferol [Vitamin D2 (1250 1,250 mcg PO Q7D 30 Days cap 04/19/21 Mcg = 56329 Iu)] Loratadine [Claritin] 10 mg PO HS 30 Days tab 04/19/21 Montelukast [Singulair] 10 mg PO HS 30 Days tab 04/19/21 Multivitamins, Thera [Multivitamin 1 each PO DAILY 30 Days tab 04/19/21 (formulary)] QUEtiapine [SEROquel] 50 mg PO 2100 30 Days tab 04/19/21 hydrOXYzine pamoate [Vistaril] 25 mg PO BID PRN 30 Days cap 04/19/21 lamoTRIgine [LaMICtal] 100 mg PO DAILY 30 Days tab 04/19/21 Dicyclomine [Bentyl] 20 mg PO QID #15 tablet 05/16/21 Ondansetron Odt [Zofran ODT] 4 mg PO Q8HR PRN #10 tab 05/16/21 Sulfamethox-Tmp 800-160Mg [Bactrim 1 each PO Q12HR #14 tab 05/16/21 Ds] Allergies Allergy/AdvReac Type Severity Reaction Status Date / Time azithromycin Allergy Nausea & Verified 05/30/21 12:37 Vomiting banana Allergy Nausea & Verified 05/30/21 12:37 Vomiting ciprofloxacin [From Cipro] Allergy Rash/Hives Verified 05/30/21 12:37 coconut Allergy Anaphylaxis Verified 05/30/21 12:37 coconut oil Allergy Anaphylaxis Verified 05/30/21 12:37 ibuprofen [From Motrin] Allergy Anaphylaxis Verified 05/30/21 12:37 Iodinated Contrast Media Allergy Rash/Hives Verified 05/30/21 12:37 [Iodinated Contrast- Oral and IV Dye] latex Allergy Rash/Hives Verified 05/30/21 12:37 mold Allergy Unknown Verified 05/30/21 12:37 Mushroom Allergy Anaphylaxis Verified 05/30/21 12:37 orange Allergy Nausea & Verified 05/30/21 12:37 Vomiting orange juice [[place]] Allergy Nausea & Verified 05/30/21 12:37 Vomiting pollen extracts Allergy Unknown Verified 05/30/21 12:37 tomato Allergy Anaphylaxis Verified 05/30/21 12:37 cephalexin [From Keflex] AdvReac Rash/Hives Verified 05/30/21 12:37 Review of Systems ROS Statement: Those systems with pertinent positive or pertinent negative responses have been documented in the HPI. ROS Other: All systems not noted in ROS Statement are negative. Past Medical History Past Medical History: Asthma, Blood Disorder, Cancer, Hearing Disorder / Deafness, Seizure Disorder, Skin Disorder Additional Past Medical History / Comment(s): anemia, lymphatic ca, [place], ECZEMA, LAST SEIZURE 10 YEARS-PHOTO SENSITIVITY SEIZURE, PAIN ON RLQ WITH DIARRHEA WITH BLOOD IN STOOL, diverticulitis History of Any Multi-Drug Resistant Organisms: MRSA Date of last positivie culture/infection: 2014 MDRO Source:: chest Past Surgical History: Adenoidectomy, Breast Surgery, Section, Cholecystectomy, Ear Surgery, Orthopedic Surgery Additional Past Surgical History / Comment(s): BILAT breast reduction, tubes in ears, ORIF RT ELBOW, HAND AND WRIST, RE OPENING OF GALLBLADDER IN APR AND JUNE 2020 Past Anesthesia/Blood Transfusion Reactions: Postoperative Nausea & Vomiting (PONV) Past Psychological History: Anxiety, Bipolar, Depression, PTSD Smoking Status: Never smoker Past Alcohol Use History: None Reported Past Drug Use History: None Reported - Past Family History Mother Family Medical History: Coronary Artery Disease (CAD), Deep Vein Thrombosis (DVT), Hyperlipidemia General Exam Limitations: no limitations General appearance: alert, in no apparent distress Head exam: Present: atraumatic, normocephalic, normal inspection Eye exam: Present: normal appearance, PERRL, EOMI. Absent: scleral icterus, conjunctival injection, periorbital swelling ENT exam: Present: normal exam, normal oropharynx, mucous membranes moist Neck exam: Present: normal inspection, tenderness, full ROM. Absent: meningismus, lymphadenopathy Respiratory exam: Present: normal lung sounds bilaterally. Absent: respiratory distress, wheezes, rales, rhonchi, stridor Cardiovascular Exam: Present: regular rate, normal rhythm, normal heart sounds. Absent: systolic murmur, diastolic murmur, rubs, gallop, clicks GI/Abdominal exam: Present: soft, normal bowel sounds. Absent: distended, tenderness, guarding, rebound, rigid Extremities exam: Present: other (Upper and lower extremity strength equal bilaterally) Neurological exam: Present: alert, oriented X3, CN II-XII intact, reflexes normal. Absent: motor sensory deficit Skin exam: Present: warm, dry, intact, normal color. Absent: rash Course Vital Signs 05/30/21 05/30/21 12:34 15:58 Temperature 98 F Pulse Rate 111 H 112 H Respiratory 18 22 Rate Blood Pressure 151/83 143/86 O2 Sat by Pulse 98 98 Oximetry Medical Decision Making - Medical Decision Making 18-year-old female presented for fall, head injury no cough congestion. Patient was sent for imaging from triage. Patient ate a CT brain and C-spine prior to being seen. Patient has a normal neuro exam. Patient did complain of cough congestion and which she had an x-ray,: 19 testing which is negative. Patient is a viral URI. Patient had repeat urinalysis and hCG which was positive for . Patient will be discharged stable condition return parameters were discussed. - Lab Data Lab Results 05/30/21 05/30/21 05/30/21 Range/Units 14:29 14:37 14:41 Urine Color Yellow Urine Appearance Cloudy H (Clear) Urine pH 6.5 (5.0-8.0) Ur Specific [place] 1.013 (1.001-1.035) Urine Protein Negative (Negative) Urine Glucose (UA) Negative (Negative) Urine Ketones Negative (Negative) Urine Blood Negative (Negative) Urine Nitrite Negative (Negative) Urine Bilirubin Negative (Negative) Urine Urobilinogen <2.0 (<2.0) mg/dL Ur Leukocyte Esterase Large H (Negative) Urine RBC 4 (0-5) /hpf Urine WBC 6 H (0-5) /hpf Ur Squamous Epith Cells 7 H (0-4) /hpf Urine Bacteria Many H (None) /hpf Urine Mucus Rare H (None) /hpf Urine HCG, Qual Detected (Not Detectd) Coronavirus (PCR) Not Detected (Not Detectd) Disposition Clinical Impression: , Head contusion, Viral URI Disposition: HOME SELF-CARE Condition: Stable Instructions (If sedation given, give patient instructions): Upper Respiratory Infection (ED) Additional Instructions: Please return to the Emergency Department if symptoms worsen or any other concerns. Is patient prescribed a controlled substance at d/c from ED?: No Referrals: Nonstaff,Physician [Primary Care Provider] - 1-2 days Time of Disposition: 16:27
[2021-05-30 16:32] VITALS: PULSE 110
== END 2021-05-30 18:11 | disposition home or self-care (01) ==
LOC: EC 12:29
DX: O9A.211 Injury, poisoning and certain other consequences of external causes complicating pregnancy, first trimester (principal); O99.511 Diseases of the respiratory system complicating pregnancy, first trimester; S00.83XA Contusion of other part of head, initial encounter; J06.9 Acute upper respiratory infection, unspecified; J45.909 Unspecified asthma, uncomplicated; F41.9 Anxiety disorder, unspecified; F31.9 Bipolar disorder, unspecified; F43.10 Post-traumatic stress disorder, unspecified; Z20.822 Contact with and (suspected) exposure to COVID-19; Z88.1 Allergy status to other antibiotic agents; Z88.6 Allergy status to analgesic agent; Z91.040 Latex allergy status; Z90.49 Acquired absence of other specified parts of digestive tract; Z3A.00 Weeks of gestation of pregnancy not specified; W18.30XA Fall on same level, unspecified, initial encounter
CPT/HCPCS: 70450; 71046; 72125; 81001; 81025; 87635; 94640; 99284

== ENCOUNTER 2022-01-08 21:00 | Outpatient (CLI) | payer OTHER ==
[2022-01-08 22:27] LABS: Basophils # (A) 0.1 k/uL (0-0.2); Basophils % (A) 1 %; Eosinophils # (A) 0.2 k/uL (0-0.7); Eosinophils % (A) 2 %; HGB 10.6 gm/dL (11.4-16.0); Hypochromasia Slight; Lymphocytes # (A) 2.6 k/uL (1.0-4.8); Lymphocytes % (A) 23 %; MCH 24.5 pg (25.0-35.0); MCHC 32.2 g/dL (31.0-37.0); Mean Platelet Volume 10.8; Monocytes # (A) 0.6 k/uL (0-1.0); Monocytes % (A) 5 %; Neutrophils % (A) 68 %; Platelet Count 208 k/uL (150-450); Poikilocytosis Slight; RBC 4.34 m/uL (3.80-5.40); RDW 14.1 % (11.5-15.5); WBC 11.7 k/uL (3.8-10.6)
[2022-01-08 22:32] LABS: Creatinine,Urine Random 100.8 mg/dL; Protein/Creatinine Ratio,Urine 0.327
[2022-01-08 22:34] LABS: ALT 11 U/L (4-34); AST 20 U/L (14-36); African American GFR (CKD) >90 (>60 ml/min/1.73 sqM); Blood Urea Nitrogen 9 mg/dL (7-17); LDH 507 U/L (313-618); Non-African American GFR(CKD) >90 (>60 ml/min/1.73 sqM); Uric Acid 6.3 mg/dL (3.7-7.4)
[2022-01-08 22:53] LABS: INR 0.9 (<1.2); Partial Thromboplastin Time 22.3 sec (22.0-30.0); Prothrombin Time 9.6 sec (9.0-12.0)
[2022-01-08 22:57] LABS: Appearance,Urine Cloudy (Clear); Bacteria,Urine Moderate /hpf; Bilirubin,Urine Negative (Negative); Blood,Urine Negative (Negative); Color,Urine Yellow; Glucose,Urine (UA) Negative (Negative); Ketones,Urine Negative (Negative); Leukocyte Esterase,Urine Large (Negative); Mucus,Urine Rare /hpf; Nitrite,Urine Negative (Negative); PH, Urine 6.5 (5.0-8.0); Protein,Urine 1+ (Negative); RBC,Urine 4 /hpf (0-5); Specific Gravity,Urine 1.013 (1.001-1.035); Squamous Epithelial Cell,Urine 20 /hpf (0-4); Urobilinogen,Urine <2.0 mg/dL (<2.0); WBC,Urine 56 /hpf (0-5)
[2022-01-09 00:01] VITALS: BP 130/87; PULSE 113; RESP 16; TEMP 97.7
--- NOTE | 2022-01-13 09:47 | P.MSEPDOC ---
Presenting Problems - Arrival Data Date of Arrival on Unit: 01/08/22 Time of Arrival on Unit: 21:00 Mode of Transport: EMS - Complaint OB-Reason for Admission/Chief Complaint: Headache, Visual Disturbances, Pain, Dizziness Medical History - Information : 5 Para: 1 Term: 1 Abortions: Spontaneous or Elective: 3 Number of Living Children: 1 - Gestational Age Gestational Age by AMADEO (wks/days): 36 Weeks and 4 Days - History Complications: GDM Review of Systems - Review of Systems Constitutional: No problems Breast: No problems ENT: No problems Cardiovascular: No problems Respiratory: No problems Gastrointestinal: No problems Genitourinary: No problems Musculoskeletal: No problems Neurological: No problems Skin: No problems Vital Signs - Temperature Temperature: 97.7 F Temperature Source: Temporal Artery Scan - Pulse Pulse Oximetery Pulse Rate: 113 Pulse Assessment Method: Pulse Oximetry - Respirations Respiratory Rate: 16 Oxygen Delivery Method: Room Air O2 Sat by Pulse Oximetry: 99 - Blood Pressure Right Arm Blood Pressure: 130/87 Blood Pressure Mean: 101 Blood Pressure Source: Automatic Cuff Medical Screen Scoring - Cervical Exam Dilation (cm): 0 Membranes: Intact - Uterine Contractions Intensity: Mild Resting: Soft to palpation - Assessment - Baby A Baseline FHR: 130-145 Heart Rate - NICHD Category: Category I (Normal) NST: Reactive Physician Notification - Physician Notified Physician Notified Date: 01/08/22 Physician Notified Time: 21:23 Physician: Dr. Dunham New Order Received: Yes - Notification Comment Comment: Dr. Dunham in department, Discussed patient status and reviewed past history. including cellular patient history chart from [facility] . verbal orders for PreEclampsia. workup, UA, cervical exam, and monitoring. Call with lab results. Maternal Triage Index - Maternal Triage Index Presenting for scheduled procedure w/no complaint: No - Stat/Priority 1 Stat Priority 1: No - Urgent/Priority 2 Urgent Priority 2: No - Prompt/Priority 3 Prompt Priority 3: Yes Criteria Met for Priority 3: BP 160/111 per EMS Disposition - Disposition OB Disposition: Triage, Written follow up instructions reviewed Discharge Date: 01/09/22 Discharge Time: 23:00 I agree with the RN Medical Screening Exam: Yes Physician's MSE Comment: Patient was advised that her protein to creatinine ratio is elevated above 0.3 but that none of her blood pressures since arrival to triage have been in the severe category. She is advised to follow up immediately with her own physician and advised that she may need delivery at 37 weeks due to preeclampsia. Case reviewed; plan agreed upon as documented in EMR&OBIX.: Yes Diagnosis: MILD TO MODERATE PRE-ECLAMPSIA, THIRD TRIMESTER
== END 2022-01-08 23:00 | disposition home or self-care (01) ==
LOC: FBPOP 21:00
PROVIDERS: ATTEND Obstetrics & Gynecology
DX: O14.93 Unspecified pre-eclampsia, third trimester (principal); Z3A.36 36 weeks gestation of pregnancy; Z91.09 Other allergy status, other than to drugs and biological substances; Z88.1 Allergy status to other antibiotic agents; Z91.018 Allergy to other foods; Z88.6 Allergy status to analgesic agent; Z91.041 Radiographic dye allergy status; Z91.040 Latex allergy status; Z91.048 Other nonmedicinal substance allergy status
CPT/HCPCS: 59025; 82570; 84156; 82565; 83615; 84450; 84460; 84520; 84550; 85025; 85384; 85610; 85730; 81001; G0463; 99215

== ENCOUNTER 2022-04-16 19:27 | Emergency (ER) | payer OTHER ==
[2022-04-16 19:55] VITALS: BP 152/86; PULSE 108; TEMP 98.4
--- NOTE | 2022-04-16 20:30 | XR ---
EXAMINATION TYPE: XR chest 2V DATE OF EXAM: 04/16/2022 COMPARISON: 05/30/2021 HISTORY: Cough TECHNIQUE: FINDINGS: Heart and mediastinum are normal. Lungs are clear. Diaphragm is normal. Bony thorax appears normal. IMPRESSION: Normal chest. No change.
[2022-04-16 21:54] VITALS: RESP 18
[2022-04-16] MEDS ORDERED: dexAMETHasone 2 MG TAB PO STA (22:06)
--- NOTE | 2022-04-16 22:09 | ED ---
General Adult HPI - General Chief complaint: Upper Respiratory Infection Stated complaint: Congestion,Fever-wants covid screening Time Seen by Provider: 04/16/22 21:09 Source: patient, RN notes reviewed Mode of arrival: ambulatory Limitations: no limitations - History of Present Illness Initial comments: 27-year-old female presents to the emergency department for evaluation of the upper respiratory infection symptoms. Patient states her symptoms have been ongoing for the past 4 days, but have continued to worsen. Complains of cough, congestion, nasal drainage, and mild sore throat. Other family members have similar symptoms. Did not take anything prior to arrival. Denies fever, chills, chest pain, difficulty breathing, abdominal pain, nausea, vomiting, diarrhea, dysuria. - Related Data Home Medications Medication Instructions Recorded Confirmed Cetirizine HCl 10 mg PO HS 06/05/21 01/08/22 Udn-[id number] Acid 1 cap PO DAILY 06/05/21 01/08/22 [-U Capsule (formulary)] lamoTRIgine [LaMICtal] 100 mg PO HS 06/05/21 01/08/22 Omeprazole 20 mg PO HS 01/08/22 01/08/22 Previous Rx's Medication Instructions Recorded Albuterol Inhaler [Ventolin Hfa 2 puff INHALATION RT-Q6H PRN #1 04/19/21 Inhaler] each Budesonide/Formoterol Fumarate 2 puff INHALATION RT-BID #1 each 04/19/21 [Symbicort 160-4.5 Mcg Inhaler] hydrOXYzine pamoate [Vistaril] 25 mg PO BID PRN 30 Days cap 04/19/21 dexAMETHasone [Decadron] 6 mg PO DAILY 9 Days #9 tablet 04/16/22 Allergies Allergy/AdvReac Type Severity Reaction Status Date / Time tomato Allergy Severe Anaphylaxis Verified 04/16/22 21:13 pollen extracts Allergy Mild Unknown Verified 04/16/22 21:13 azithromycin Allergy Nausea & Verified 04/16/22 21:13 Vomiting banana Allergy Nausea & Verified 04/16/22 21:13 Vomiting ciprofloxacin [From Cipro] Allergy Rash/Hives Verified 04/16/22 21:13 coconut Allergy Anaphylaxis Verified 04/16/22 21:13 coconut oil Allergy Anaphylaxis Verified 04/16/22 21:13 ibuprofen [From Motrin] Allergy Anaphylaxis Verified 04/16/22 21:13 Iodinated Contrast Media Allergy Rash/Hives Verified 04/16/22 21:13 [Iodinated Contrast- Oral and IV Dye] latex Allergy Rash/Hives Verified 04/16/22 21:13 mold Allergy Unknown Verified 04/16/22 21:13 Mushroom Allergy Anaphylaxis Verified 04/16/22 21:13 orange Allergy Nausea & Verified 04/16/22 21:13 Vomiting orange juice [[place]] Allergy Nausea & Verified 04/16/22 21:13 Vomiting cephalexin [From Keflex] AdvReac Rash/Hives Verified 04/16/22 21:13 Review of Systems ROS Statement: Those systems with pertinent positive or pertinent negative responses have been documented in the HPI. ROS Other: All systems not noted in ROS Statement are negative. Past Medical History Past Medical History: Asthma, Blood Disorder, Cancer, Hearing Disorder / Deafness, Seizure Disorder, Skin Disorder Additional Past Medical History / Comment(s): anemia, lymphatic ca, [place], [place], LAST SEIZURE 10 YEARS-PHOTO SENSITIVITY SEIZURE, PAIN ON RLQ WITH DIARRHEA WITH BLOOD IN STOOL, diverticulitis History of Any Multi-Drug Resistant Organisms: MRSA Date of last positivie culture/infection: 2014 MDRO Source:: chest Past Surgical History: Adenoidectomy, Breast Surgery, Section, Cholecystectomy, Ear Surgery, Orthopedic Surgery Additional Past Surgical History / Comment(s): BILAT breast reduction, tubes in ears, ORIF RT ELBOW, HAND AND WRIST, RE OPENING OF GALLBLADDER IN APR AND JUNE 2020 Past Anesthesia/Blood Transfusion Reactions: Postoperative Nausea & Vomiting (PONV) Past Psychological History: Anxiety, Bipolar, Depression, PTSD Smoking Status: Never smoker Past Alcohol Use History: None Reported Past Drug Use History: None Reported - Past Family History Mother Family Medical History: Coronary Artery Disease (CAD), Deep Vein Thrombosis (DVT), Hyperlipidemia General Exam Limitations: no limitations General appearance: alert, in no apparent distress ENT exam: Present: normal exam, normal oropharynx, mucous membranes moist, TM's normal bilaterally Respiratory exam: Present: normal lung sounds bilaterally. Absent: respiratory distress, wheezes, rales, rhonchi, stridor, chest wall tenderness Cardiovascular Exam: Present: regular rate, normal rhythm, normal heart sounds. Absent: systolic murmur, diastolic murmur, rubs, gallop, clicks GI/Abdominal exam: Present: soft, normal bowel sounds. Absent: distended, t enderness, guarding, rebound, rigid Psychiatric exam: Present: normal affect, normal mood Course Vital Signs 04/16/22 04/16/22 19:52 21:00 Temperature 98.4 F Pulse Rate 108 H Respiratory 20 18 Rate Blood Pressure 152/86 O2 Sat by Pulse 96 Oximetry Medical Decision Making - Medical Decision Making This is a 27-year-old female who presents to the emergency department with complaints of upper respiratory infection symptoms. Upon exam, patient is well- appearing and in no acute distress. Physical exam findings are unremarkable. Chest x-ray is negative. Cepheid positive for Covid. Patient will be discharged home with instructions on symptomatic management and prescribed Decadron. Encourage to follow up with her PCP for recheck. Return parameters discussed in detail. Patient verbalizes understanding and agrees with this plan. Attending: Aramis Was pt. sent in by a medical professional or institution? @ -No Did you speak to anyone other than the patient for history? @ -No Did you review nursing and triage notes? @ -Yes, agree Were old charts reviewed? @ -No Differential Diagnosis? @ -Influenza, Covid, RSV, pneumonia, this is not meant to be an exhaustive list EKG interpreted by me (3pts min.)? @ -Not applicable X-rays interpreted by me (1pt min.)? @ -Chest x-ray shows no focal consolidation or infiltrate CT interpreted by me (1pt min.)? @ -Not applicable U/S interpreted by me (1pt. min.)? @ -Not applicable What testing was considered but not performed? (CT, X-rays, U/S, labs)? Why? @Laboratory studies were considered, or patient is not ill in appearance. What meds were considered but not given? Why? @ -None Did you discuss the management of the patient with other professionals? @ -None Did you reconcile home meds? @ -No Was smoking cessation discussed for >3mins.? @ -No Was critical care preformed (if so, how long)? @ -No Were there social determinants of health that impacted care today? How? (Homelessness, low income, unemployed, alcoholism, drug addiction, transportation, low edu. Level, literacy, decrease access to med. care, [facility], rehab)? @ -No Was there de-escalation of care discussed even if they declined? (Discuss DNR or withdrawal of care, Hospice)? @ -No What co-morbidities impacted this encounter? (DM, HTN, Smoking, COPD, CAD, Cancer, CVA, Hep., AIDS, mental health diagnosis, sleep apnea, morbid obesity)? @No Was patient admitted / discharged? @ -Discharged Undiagnosed new problem with uncertain prognosis? @ -None Drug Therapy requiring intensive monitoring for toxicity (Heparin, Nitro, Insulin, Cardizem)? @ -None Were any procedures done? @ -None Diagnosis/symptom? @ -COVID-19 Acute, or Chronic, or Acute on Chronic? @ -Acute Uncomplicated (without systemic symptoms) or Complicated (systemic symptoms)? @ -Uncomplicated Side effects of treatment? @ -None Exacerbation, Progression, or Severe Exacerbation] @ -No Poses a threat to life or bodily function? @ -No - Lab Data Lab Results 04/16/22 Range/Units 20:04 Influenza Type A (PCR) Not Detected (Not Detectd) Influenza Type B (PCR) Not Detected (Not Detectd) RSV (PCR) Not Detected (Not Detectd) SARS-CoV-2 (PCR) Detected A (Not Detectd) - Radiology Data Radiology results: report reviewed, image reviewed Interpreted by me: Provided interpretation, x-ray shows no evidence of consolidation or infiltrate. Two-view chest x-ray was obtained. Report was reviewed in its entirety. Impression per Dr. Grover as normal chest. No change. Disposition Clinical Impression: COVID-19 Disposition: HOME SELF-CARE Condition: Stable Instructions (If sedation given, give patient instructions): Coronavirus Disease 2019 (COVID-19) Additional Instructions: Remain home for 5 days, then may returned to work wearing a mask. Treat fever with Tylenol. Consider vaporizer or humidifier. You are being prescribed Decadron which is a steroid. Avoid excess consumption of sugary foods as this medication can cause an increase in blood sugar. See your PCP for a recheck in 48-72 hours if needed. Return to the emergency department with any new, worsening, or concerning symptoms. Prescriptions: dexAMETHasone [Decadron] 6 mg PO DAILY 9 Days #9 tablet Is patient prescribed a controlled substance at d/c from ED?: No Referrals: Nonstaff,Physician [Primary Care Provider] - 1-2 days Time of Disposition: 22:09
== END 2022-04-16 23:10 | disposition home or self-care (01) ==
LOC: EC 19:27
DX: U07.1 COVID-19 (principal); J45.909 Unspecified asthma, uncomplicated; G40.909 Epilepsy, unspecified, not intractable, without status epilepticus; F41.9 Anxiety disorder, unspecified; F31.9 Bipolar disorder, unspecified; Z91.018 Allergy to other foods; Z91.041 Radiographic dye allergy status; Z91.040 Latex allergy status; Z88.8 Allergy status to other drugs, medicaments and biological substances; Z79.899 Other long term (current) drug therapy
CPT/HCPCS: 87636; 71046; 99283; J8540

== ENCOUNTER 2022-04-30 10:11 | Emergency (ER) | payer OTHER ==
[2022-04-30 10:31] VITALS: RESP 18
[2022-04-30] MEDS ORDERED: HYDROcodone/APAP 5-325MG 1 EACH TAB PO STA (10:42)
[2022-04-30] MEDS ORDERED: ONDANSETRON ODT 4 MG TAB PO STA (10:43)
--- NOTE | 2022-04-30 10:45 | ED ---
Lower Extremity Injury HPI - General Chief Complaint: Extremity Injury, Lower Stated Complaint: fall - rt knee injury Time Seen by Provider: 04/30/22 10:37 Source: patient Mode of arrival: wheelchair - History of Present Illness Initial Comments: Patient is a 27-year-old female presents to the emergency department with a chief complaint of knee pain. Patient states she tripped over a laundry basket yesterday landing on her right knee. Patient was able to stand up after the injury, she had mild pain, took a Tylenol and went to sleep. Patient woke up with increased pain and bruising this morning. Pain is all over the kneecap, worse with flexion. Patient also reports increased pain with walking. No numbness or tingling. - Related Data Home Medications Medication Instructions Recorded Confirmed Cetirizine HCl 10 mg PO HS 06/05/21 01/08/22 Xbx-[id number]-Apfpm Acid 1 cap PO DAILY 06/05/21 01/08/22 [-U Capsule (formulary)] lamoTRIgine [LaMICtal] 100 mg PO HS 06/05/21 01/08/22 Omeprazole 20 mg PO HS 01/08/22 01/08/22 Previous Rx's Medication Instructions Recorded Albuterol Inhaler [Ventolin Hfa 2 puff INHALATION RT-Q6H PRN #1 04/19/21 Inhaler] each Budesonide/Formoterol Fumarate 2 puff INHALATION RT-BID #1 each 04/19/21 [Symbicort 160-4.5 Mcg Inhaler] hydrOXYzine pamoate [Vistaril] 25 mg PO BID PRN 30 Days cap 04/19/21 dexAMETHasone [Decadron] 6 mg PO DAILY 9 Days #9 tablet 04/16/22 HYDROcodone/APAP 7.5-325MG [[place] 1 tab PO Q6HR PRN 3 Days #18 tab 04/30/22 7.5-325] Allergies Allergy/AdvReac Type Severity Reaction Status Date / Time tomato Allergy Severe Anaphylaxis Verified 04/16/22 21:13 pollen extracts Allergy Mild Unknown Verified 04/16/22 21:13 azithromycin Allergy Nausea & Verified 04/30/22 10:31 Vomiting banana Allergy Nausea & Verified 04/30/22 10:31 Vomiting ciprofloxacin [From Cipro] Allergy Rash/Hives Verified 04/30/22 10:31 coconut Allergy Anaphylaxis Verified 04/30/22 10:31 coconut oil Allergy Anaphylaxis Verified 04/30/22 10:31 ibuprofen [From Motrin] Allergy Anaphylaxis Verified 04/30/22 10:31 Iodinated Contrast Media Allergy Rash/Hives Verified 04/30/22 10:31 [Iodinated Contrast- Oral and IV Dye] latex Allergy Rash/Hives Verified 04/30/22 10:31 mold Allergy Unknown Verified 04/30/22 10:31 Mushroom Allergy Anaphylaxis Verified 04/30/22 10:31 orange Allergy Nausea & Verified 04/16/22 21:13 Vomiting orange juice [[place]] Allergy Nausea & Verified 04/16/22 21:13 Vomiting cephalexin [From Keflex] AdvReac Rash/Hives Verified 04/16/22 21:13 Review of Systems ROS Statement: Those systems with pertinent positive or pertinent negative responses have been documented in the HPI. ROS Other: All systems not noted in ROS Statement are negative. Past Medical History Past Medical History: Asthma, Blood Disorder, Cancer, Hearing Disorder / Deafness, Seizure Disorder, Skin Disorder Additional Past Medical History / Comment(s): anemia, lymphatic ca, [place], [place], LAST SEIZURE 10 YEARS-PHOTO SENSITIVITY SEIZURE, PAIN ON RLQ WITH DIARRHEA WITH BLOOD IN STOOL, diverticulitis History of Any Multi-Drug Resistant Organisms: MRSA Date of last positivie culture/infection: 2014 MDRO Source:: chest Past Surgical History: Adenoidectomy, Breast Surgery, Section, Cholecystectomy, Ear Surgery, Orthopedic Surgery Additional Past Surgical History / Comment(s): BILAT breast reduction, tubes in ears, ORIF RT ELBOW, HAND AND WRIST, RE OPENING OF GALLBLADDER IN APR AND JUNE 2020 Past Anesthesia/Blood Transfusion Reactions: Postoperative Nausea & Vomiting (PONV) Past Psychological History: Anxiety, Bipolar, Depression, PTSD Smoking Status: Never smoker Past Alcohol Use History: None Reported Past Drug Use History: None Reported - Past Family History Mother Family Medical History: Coronary Artery Disease (CAD), Deep Vein Thrombosis (DVT), Hyperlipidemia General Exam General appearance: alert, in no apparent distress Head exam: Present: atraumatic, normocephalic, normal inspection Respiratory exam: Present: normal lung sounds bilaterally. Absent: respiratory distress, wheezes, rales, rhonchi, stridor Cardiovascular Exam: Present: regular rate, normal rhythm, normal heart sounds. Absent: systolic murmur, diastolic murmur, rubs, gallop, clicks Extremities exam: Present: other (Bruising and mild swelling of right knee. Positive anterior drawer test. Neurovascularly intact. Limited flexion of the knee) Neurological exam: Present: alert, oriented X3, CN II-XII intact Psychiatric exam: Present: normal affect, normal mood Skin exam: Present: warm, dry, intact, normal color. Absent: rash Course Vital Signs 04/30/22 10:25 Temperature 98 F Pulse Rate 789 H Respiratory 18 Rate Blood Pressure 126/85 O2 Sat by Pulse 99 Oximetry Procedures - Orthopedic Splinting/Casting Injury #1 Side: right Lower Extremity Injury Location: knee Lower Extremity Immobilizer: knee immobilizer Other Orthopedic Equipment: crutches Medical Decision Making - Medical Decision Making Was pt. sent in by a medical professional or institution (, PA, IVORY POLISHER, urgent care, hospital, or [facility]...) When possible be specific @ -[No] Did you speak to anyone other than the patient for history (EMS, parent, family, police, friend...)? What history was obtained from this source @ -[No] Did you review nursing and triage notes (agree or disagree)? Why? @ -[I reviewed and agree with nursing and triage notes] Were old charts reviewed (outside hosp., previous admission, EMS record, old EKG, old radiological studies, urgent care reports/EKG's, [facility] records)? Report findings @ -[No old charts were reviewed] Differential Diagnosis (chest pain, altered mental status, abdominal pain women, abdominal pain men, vaginal bleeding, weakness, fever, dyspnea, syncope, headache, dizziness, GI bleed, back pain, seizure, CVA, palpatations, mental health)? @ -ACL tear, knee fracture, soft tissue injury EKG interpreted by me (3pts min.). @ -[As above] X-rays interpreted by me (1pt min.). @ -Yes, right knee x-ray negative for fracture and dislocation CT interpreted by me (1pt min.). @ -[None done] U/S interpreted by me (1pt. min.). @ -[None done] What testing was considered but not performed or refused? (CT, X-rays, U/S, labs)? Why? @ -[None] What meds were considered but not given or refused? Why? @ -[None] Did you discuss the management of the patient with other professionals (professionals i.e. , PA, IVORY POLISHER, lab, RT, psych nurse, group social worker, manager bank, teacher, search and rescue officer, case folder)? Give summary @ -[No] Was smoking cessation discussed for >3mins.? @ -[No] Was critical care preformed (if so, how long)? @ -[No] Were there social determinants of health that impacted care today? How? (Homelessness, low income, unemployed, alcoholism, drug addiction, transportation, low edu. Level, literacy, decrease access to med. care, [facility], rehab)? @ -[No] Was there de-escalation of care discussed even if they declined (Discuss DNR or withdrawal of care, Hospice)? DNR status @ -[No] What co-morbidities impacted this encounter? (DM, HTN, Smoking, COPD, CAD, Cancer, CVA, ARF, Chemo, Hep., AIDS, mental health diagnosis, sleep apnea, morbid obesity)? @ -[None] Was patient admitted / discharged? Hospital course, mention meds given and route, prescriptions, significant lab abnormalities, going to OR and other pertinent info. @ -This is a 27-year-old presenting with right knee injury. X-ray negative for fracture or dislocation. Patient has significant pain and bruising. She was placed in a knee immobilizer and given crutches. She is to not bear weight until orthopedic evaluation. She is referred. She has anaphylactic ALLERGY to anti-inflammatory medications. With this I will discharge her with a short course of [place] for severe pain. Discussed conservative treatment in detail. Undiagnosed new problem with uncertain prognosis? @ -[No] Drug Therapy requiring intensive monitoring for toxicity (Heparin, Nitro, Insulin, Cardizem)? @ -[No] Were any procedures done? @ -[No] Diagnosis/symptom? @ -right knee injury Acute, or Chronic, or Acute on Chronic? @ -acute Uncomplicated (without systemic symptoms) or Complicated (systemic symptoms)? @ -uncomplicated Side effects of treatment? @ -[No] Exacerbation, Progression, or Severe Exacerbation? @ -[No] Poses a threat to life or bodily function? How? (Chest pain, [place], [place], pneumonia, PE, COPD, DKA, ARF, appy, cholecystitis, CVA, Diverticulitis, Homicidal, Suicidal, threat to staff... and all critical care pts) @ -[No] Dr. Miranda is my attending Disposition Clinical Impression: Right knee injury Disposition: HOME SELF-CARE Condition: Good Instructions (If sedation given, give patient instructions): Knee Pain (ED) Additional Instructions: Take medication as directed. Do not take Tylenol taking [place]. Follow-up with flight service specialist in 1-2 days. The knee immobilizer on and use crutches-do not bear weight until orthopedic evaluation. Continue cold compresses and elevation to decrease swelling, especially since you cannot take anti- inflammatory medication. Return to the ED if you experience new, concerning, or worsening symptoms. Prescriptions: HYDROcodone/APAP 7.5-325MG [[place] 7.5-325] 1 tab PO Q6HR PRN 3 Days #18 tab PRN Reason: Pain Is patient prescribed a controlled substance at d/c from ED?: No Referrals: Nonstaff,Physician [Primary Care Provider] - 1-2 days Alisha Hope DO [Doctor of Osteopathic Medicine] - 1-2 days Time of Disposition: 11:22
--- NOTE | 2022-04-30 11:11 | XR ---
EXAMINATION TYPE: XR knee complete RT DATE OF EXAM: 04/30/2022 COMPARISON: NONE HISTORY: Pain TECHNIQUE: Three views are submitted. FINDINGS: Joint spaces are preserved. Osseous structures are intact. No acute fracture seen. IMPRESSION: 1. No acute fracture or dislocation.
[2022-04-30 11:40] VITALS: BP 135/80; PULSE 102; TEMP 98.6
== END 2022-04-30 11:44 | disposition home or self-care (01) ==
LOC: EC 10:11
DX: S80.911A Unspecified superficial injury of right knee, initial encounter (principal); J45.909 Unspecified asthma, uncomplicated; G40.909 Epilepsy, unspecified, not intractable, without status epilepticus; F41.9 Anxiety disorder, unspecified; F31.9 Bipolar disorder, unspecified; Z91.018 Allergy to other foods; Z91.041 Radiographic dye allergy status; Z91.040 Latex allergy status; Z88.1 Allergy status to other antibiotic agents; Z88.8 Allergy status to other drugs, medicaments and biological substances; Z79.899 Other long term (current) drug therapy; W01.0XXA Fall on same level from slipping, tripping and stumbling without subsequent striking against object, initial encounter
CPT/HCPCS: 29505; 99284

== ENCOUNTER → 2022-05-16 | Outpatient (CLI) | payer OTHER ==
[2022-05-16 14:26] LABS: Basophils % (A) 1.1 %; Eosinophils % (A) 4.4 %; HCT 44.5 % (37.2-46.3); Immature Grans, Automated 0.2 %; Lymphocytes # (A) 2.28 X 10*3/uL (0.90-5.00); Lymphocytes % (A) 24.8 %; MCH 25.5 pg (27.0-32.0); MCHC 31.5 g/dL (32.0-37.0); MCV 81.1 fL (80.0-97.0); Mean Platelet Volume 9.9 fL (9.5-12.2); Monocytes # (A) 0.49 X 10*3/uL (0.20-1.00); Monocytes % (A) 5.3 %; NRBC Per 100 WBC 0 /100 WBCS (0.0-0.0); Neutrophils % (A) 64.2 %; Platelet Count 278 X 10*3/uL (140-440); RBC 5.49 X 10*6/uL (4.10-5.20); RDW 14.2 % (11.5-14.5); WBC 9.19 X 10*3/uL (4.50-10.00)
[2022-05-16 16:22] LABS: ALT 27 U/L (8-44); AST 23 U/L (13-35); African American GFR (CKD) 135.7 (60.0-200.0); Albumin 4.3 g/dL (3.8-4.9); Albumin/Globulin Ratio 1.72 (1.60-3.17); Alkaline Phosphatase 85 U/L (41-126); BUN/Creat Ratio 21.57 Ratio (12.00-20.00); Blood Urea Nitrogen 15.1 mg/dL (9.0-27.0); Calcium 9.3 mg/dL (8.7-10.3); Carbon Dioxide 26.8 mmol/L (20.0-27.5); Chloride 104 mmol/L (96-109); Chol/HDL Ratio 4.72 Ratio; Ferritin 25.3 ng/mL (10.0-291.0); Globulin 2.5 g/dL (1.6-3.3); Glucose 112 mg/dL (70-110); Iron 61 ug/dL (50-170); LDL Cholesterol,Calculated 92.6 mg/dL (0.0-131.0); Non-African American GFR(CKD) 117.1 (60.0-200.0); Potassium 4.5 mmol/L (3.5-5.5); Sodium 140 mmol/L (135-145); Total Protein 6.8 g/dL (6.2-8.2)
== END | disposition home or self-care (01) ==
LOC: LABWHC1 10:14
PROVIDERS: ATTEND Nurse Practitioner Psychiatric/Mental Health
DX: E61.1 Iron deficiency (principal); F33.2 Major depressive disorder, recurrent severe without psychotic features; Z79.899 Other long term (current) drug therapy; R63.4 Abnormal weight loss
CPT/HCPCS: 36415; 80053; 80061; 82306; 82607; 82728; 82746; 83036; 83540; 84439; 84443; 85025

== ENCOUNTER 2023-04-18 11:05 | Emergency (ER) | payer OTHER ==
--- NOTE | 2023-04-18 11:08 | ED ---
General Adult HPI - General Source: patient, RN notes reviewed Mode of arrival: ambulatory Limitations: no limitations <Dalton Bettencourt - Last Filed: 04/18/23 11:07> <Maylin Lomeli - Last Filed: 04/18/23 18:05> - General Stated complaint: preg w/twins cramping Time Seen by Provider: 04/18/23 11:07 - History of Present Illness Initial comments: 28-year-old female presents emergency Department with chief complaint of . Patient states that she had an ultrasound performed at [facility] in which they were unable to find a heartbeat of the second gestational sac. Patient states she is having some cramping. (Dalton Bettencourt) The patient is a 28-year-old female with 1 previous ectopic who presents to the emergency room with complaints of abdominal pain in . Patient states she was told yesterday at [facility] radiology that she was with twins. She states that the 2 gestational sacs were very far apart and had different estimated due date/sizing. She states she was told that the 7 week gestational sac did not have a heartbeat however the 6 week gestational sac did. Patient denies any vaginal bleeding or discharge. She has had nausea and abdominal cramping that worsened last night and this morning. [facility] with [facility] and spoke with their officer told her to come into the emergency room for further evaluation. She has not seen an OB at this time. She was sent by her PCP for the initial ultrasound. She did not have hCG Quant taken on her visit yesterday. (Maylin Lomeli) - Related Data Home Medications Medication Instructions Recorded Confirmed Cetirizine HCl 10 mg PO HS 06/05/21 01/08/22 Pnr-Qafj-Adscd Acid 1 cap PO DAILY 06/05/21 01/08/22 [-U Capsule (formulary)] lamoTRIgine [LaMICtal] 100 mg PO HS 06/05/21 01/08/22 Omeprazole 20 mg PO HS 01/08/22 01/08/22 Previous Rx's Medication Instructions Recorded Albuterol Inhaler [Ventolin Hfa 2 puff INHALATION RT-Q6H PRN #1 04/19/21 Inhaler] each Budesonide/Formoterol Fumarate 2 puff INHALATION RT-BID #1 each 04/19/21 [Symbicort 160-4.5 Mcg Inhaler] hydrOXYzine pamoate [Vistaril] 25 mg PO BID PRN 30 Days cap 04/19/21 dexAMETHasone [Decadron] 6 mg PO DAILY 9 Days #9 tablet 04/16/22 HYDROcodone/APAP 7.5-325MG [[place] 1 tab PO Q6HR PRN 3 Days #18 tab 04/30/22 7.5-325] Allergies Allergy/AdvReac Type Severity Reaction Status Date / Time tomato Allergy Severe Anaphylaxis Verified 04/18/23 13:08 pollen extracts Allergy Mild Unknown Verified 04/18/23 13:08 azithromycin Allergy Nausea & Verified 04/18/23 13:08 Vomiting banana Allergy Nausea & Verified 04/18/23 13:08 Vomiting ciprofloxacin [From Cipro] Allergy Rash/Hives Verified 04/18/23 13:08 coconut Allergy Anaphylaxis Verified 04/18/23 13:08 coconut oil Allergy Anaphylaxis Verified 04/18/23 13:08 ibuprofen [From Motrin] Allergy Anaphylaxis Verified 04/18/23 13:08 Iodinated Contrast Media Allergy Rash/Hives Verified 04/18/23 13:08 [Iodinated Contrast- Oral and IV Dye] latex Allergy Rash/Hives Verified 04/18/23 13:08 mold Allergy Unknown Verified 04/18/23 13:08 Mushroom Allergy Anaphylaxis Verified 04/18/23 13:08 orange Allergy Nausea & Verified 04/18/23 13:08 Vomiting orange juice [Hinds] Allergy Nausea & Verified 04/18/23 13:08 Vomiting cephalexin [From Keflex] AdvReac Rash/Hives Verified 04/18/23 13:08 Review of Systems ROS Other: All systems not noted in ROS Statement are negative. <Dalton Bettencourt - Last Filed: 04/18/23 11:07> ROS Other: All systems not noted in ROS Statement are negative. <Maylin Lomeli - Last Filed: 04/18/23 18:05> ROS Statement: Those systems with pertinent positive or pertinent negative responses have been documented in the HPI. Past Medical History Past Medical History: Asthma, Blood Disorder, Cancer, Hearing Disorder / Deafness, Seizure Disorder, Skin Disorder Additional Past Medical History / Comment(s): anemia, lymphatic ca, AFOGNAK, ECZEMA, LAST SEIZURE 10 YEARS-PHOTO SENSITIVITY SEIZURE, PAIN ON RLQ WITH DIARRHEA WITH BLOOD IN STOOL, diverticulitis History of Any Multi-Drug Resistant Organisms: MRSA Date of last positivie culture/infection: 2014 MDRO Source:: chest Past Surgical History: Adenoidectomy, Breast Surgery, Section, Cholecystectomy, Ear Surgery, Orthopedic Surgery Additional Past Surgical History / Comment(s): BILAT breast reduction, tubes in ears, ORIF RT ELBOW, HAND AND WRIST, RE OPENING OF GALLBLADDER IN APR AND JUNE 2020, covid X2 Past Anesthesia/Blood Transfusion Reactions: Postoperative Nausea & Vomiting (PONV) Past Psychological History: Anxiety, Bipolar, Depression, PTSD Smoking Status: Never smoker Past Alcohol Use History: None Reported Past Drug Use History: None Reported - Past Family History Mother Family Medical History: Coronary Artery Disease (CAD), Deep Vein Thrombosis ( DVT), Hyperlipidemia <Dalton Bettencourt - Last Filed: 04/18/23 11:07> General Exam <Dalton Bettencourt - Last Filed: 04/18/23 11:07> Limitations: no limitations, language barrier General appearance: alert, in no apparent distress Head exam: Present: atraumatic Eye exam: Present: PERRL Cardiovascular Exam: Present: regular rate GI/Abdominal exam: Present: soft External exam: Present: other (Exam deferred) Back exam: Present: full ROM Neurological exam: Present: alert, oriented X3, CN II-XII intact Psychiatric exam: Present: normal affect, normal mood Skin exam: Present: warm, dry <Maylin Lomeli - Last Filed: 04/18/23 18:05> - General Exam Comments Initial Comments: Visual Physical Exam Vital signs reviewed General: Well-appearing, nontoxic, no acute distress. Head: Normocephalic, atraumatic Eyes: PERRLA, EOMI ENT: Airway patent Chest: Nonlabored breathing Skin: No visual rash, normal skin tone Neuro: Alert and oriented 3 Musculoskeletal: No gross abnormalities (Dalton Bettencourt) Course <Maylin Lomeli - Last Filed: 04/18/23 18:05> Vital Signs 04/18/23 13:03 Temperature 98.5 F Pulse Rate 88 Respiratory 16 Rate Blood Pressure 133/85 O2 Sat by Pulse 97 Oximetry - Reevaluation(s) Reevaluation #1: 04/18/23 1701 I discussed imaging results with the patient which show 1 intrauterine gestational sac with heartbeat of 1 32 bpm. There is a questionable area over the right ovary that could be an ovarian cysts or ectopic demise. I spoke with the [facility] the [facility] regarding these findings and follow-up. She left a detailed note for the OB who will contact the patient further. At this time they said there was not much to do however they were able to move her appointment up to Saturday. She will receive serial hCG Quant's in the meantime and will likely have a repeat ultrasound in about a week. I did discuss this plan with the patient that she agrees upon. She does understand signs return to the emergency room including vaginal bleeding worsening pain, syncope or near- syncope. Spoke with Dr. Rincon regarding management of this patient. (Maylin Lomeli) Medical Decision Making <Dalton Bettencourt - Last Filed: 04/18/23 11:07> - Radiology Data Radiology results: report reviewed, image reviewed <Maylin Lomeli - Last Filed: 04/18/23 18:05> - Medical Decision Making I completed the quick note portion of this chart signed Dalton Bettencourt PA-C (Dalton Bettencourt) Was pt. sent in by a medical professional or institution (MARLYN Nathan, [employer], urgent care, hospital, or long term...) When possible be specific @ -The patient was [facility] in by a [facility] Did you speak to anyone other than the patient for history (EMS, parent, family, police, friend...)? What history was obtained from this source @ -[No] Did you review nursing and triage notes (agree or disagree)? Why? @ -[I reviewed and agree with nursing and triage notes] Were old charts reviewed (outside hosp., previous admission, EMS record, old EKG , old radiological studies, urgent care reports/EKG's, long term records)? Report findings @ -As all charts were reviewed, previous OB notes Differential Diagnosis (chest pain, altered mental status, abdominal pain women, abdominal pain men, vaginal bleeding, weakness, fever, dyspnea, syncope, headache, dizziness, GI bleed, back pain, seizure, CVA, palpatations, mental health, musculoskeletal)? @ -Threatened , ectopic , missed , abdominal pain in early EKG interpreted by me (3pts min.). @ -[As above] X-rays interpreted by me (1pt min.). @ -[None done] CT interpreted by me (1pt min.). @ -[None done] U/S interpreted by me (1pt. min.). @ -Ultrasound shows intrauterine with one gestational sac with a heart beat of 1 32 bpm W measuring 6 weeks 1 day. There is safe? Area over the right ovary that could represent an ovarian cysts or ectopic demise per radiologist.hat testing was considered but not performed or refused? (CT, X-rays, U/S, labs)? Why? @No What meds were considered but not given or refused? Why? @ -[None] Did you discuss the management of the patient with other professionals (professionals i.e. , PA, [employer], lab, RT, psych nurse, social insurance administrator, core measures abstractor, teacher, navigating officer, nurse case management)? Give summary @ -[No] Was smoking cessation discussed for >3mins.? @ -[No] Was critical care preformed (if so, how long)? @ -[No] Were there social determinants of health that impacted care today? How? (Homelessness, low income, unemployed, alcoholism, drug addiction, transportation, low edu. Level, literacy, decrease access to med. care, senior living, rehab)? @ -[No] Was there de-escalation of care discussed even if they declined (Discuss DNR or withdrawal of care, Hospice)? DNR status @ -[No] What co-morbidities impacted this encounter? (DM, HTN, Smoking, COPD, CAD, Cancer, CVA, ARF, Chemo, Hep., AIDS, mental health diagnosis, sleep apnea, morbid obesity)? @ -[None] Was patient admitted / discharged? Hospital course, mention meds given and route, prescriptions, significant lab abnormalities, going to OR and other pertinent info. @ -[Patient is stable at this time to follow up as an outpatient per OB. The OB will see the patient Saturday morning however the patient does understand signs return to the emergency room including but not limited to any worsening pain near syncope, syncope vaginal bleeding or new concerning symptoms. Undiagnosed new problem with uncertain prognosis? @ -[No] Drug Therapy requiring intensive monitoring for toxicity (Heparin, Nitro, Insulin, Cardizem)? @ -[No] Were any procedures done? @ -[No] Diagnosis/symptom? @ -[Threatened , abdominal pain and Acute, or Chronic, or Acute on Chronic? @ AcuteUncomplicated (without systemic symptoms) or Complicated (systemic symptoms)? @ -[default] Side effects of treatment? @ -[No] Exacerbation, Progression, or Severe Exacerbation? @ -[No] Poses a threat to life or bodily function? How? (Chest pain, USA, MA, pneumonia, PE, COPD, DKA, ARF, appy, cholecystitis, CVA, Diverticulitis, Homicidal, Suicidal, threat to staff... and all critical care pts) @ -[No] (Maylin Lomeli) - Lab Data Lab Results 04/18/23 04/18/23 Range/Units 14:31 14:31 HCG, Quant 20773.5 mIU/mL Urine Color Light Yellow Urine Appearance Cloudy H (Clear) Urine pH 6.5 (5.0-8.0) Ur Specific Amery 1.018 (1.001-1.035) Urine Protein Negative (Negative) Urine Glucose (UA) Negative (Negative) Urine Ketones Negative (Negative) Urine Blood Negative (Negative) Urine Nitrite Negative (Negative) Urine Bilirubin Negative (Negative) Urine Urobilinogen <2.0 (<2.0) mg/dL Ur Leukocyte Esterase Large H (Negative) Urine RBC 1 (0-5) /hpf Urine WBC 8 H (0-5) /hpf Ur Squamous Epith Cells 3 (0-4) /hpf Amorphous Sediment Rare H (None) /hpf Urine Bacteria Occasional H (None) /hpf Urine Mucus Rare H (None) /hpf Disposition <Dalton Bettencourt - Last Filed: 04/18/23 11:07> Is patient prescribed a controlled substance at d/c from ED?: No When asked, does pt state using other controlled substances?: No Time of Disposition: 17:21 <Maylin Lomeli - Last Filed: 04/18/23 18:05> Clinical Impression: Threatened , Abdominal pain affecting Disposition: HOME SELF-CARE Condition: Good Instructions (If sedation given, give patient instructions): Threatened Miscarriage (ED), Abdominal Pain in (ED) Referrals: Jasvir Monique MD [Primary Care Provider] - 1-2 days
--- NOTE | 2023-04-18 13:40 | US ---
EXAMINATION TYPE: Transabdominal DATE OF EXAM: 04/18/2023 12:59 PM COMPARISON: NONE CLINICAL INDICATION: Female, 28 years old with history of pain; Patient seen at [facility] y - was told she is with twins but cannot see the poles, only the sacs EXAM PERFORMED: Transvaginal (TV) and Transabdominal (TA) EXAM MEASUREMENTS: GESTATIONAL AGE / DATING Physician Established: (7 weeks/0 days) EDC: 12/05/2023 Dates by LMP: (7 weeks/0 days) EDC: 12/05/2023 Dates by First Scan: (7 weeks/0 days) EDC: 12/05/2023 Dates by Current Scan for: (6 weeks/1 days) EDC: 12/11/2023 MATERNAL ANATOMY Uterus: 13.6 x 5.3 x 7.9 cm Right Ovary: 8.3 x 3.6 x 3.5 cm; corpus luteum; complex cyst vs ectopic demise = 4.9 x 3.3 x 4.3 cm Left Ovary: 3.1 x 1.9 x 2.0 Post CDS / Adnexa: Fluid CDS and right adnexa Presence of free fluid: yes Presence of corpus luteal cyst: right ovary Presence of subchorionic bleed: no GESTATION / SURVEY CRL: 0.52 (6 weeks/2 days) MSD: 1.67 (6 weeks/0 days) Yolk Sac (normal less than 6mm): 0.4 Heart Rate: 132 bpm Rhythm: Normal IUP: Viable IUP Nuchal Translucency 10-14wks (normal less than 3mm): NA Age Appropriate Anatomy Cord Insertion: NA Limbs: NA Calvarium: NA Date of LMP: Unknown Beta HcG (if available): Not available IMPRESSION: 1. Single live intrauterine gestation ultrasound age 6 weeks 1 day. Additional information as descri bed above. 2. Second pole and gestational sac not definitely appreciated the median been mistaken for rig ht ovarian cyst. 3. Right ovarian involuting corpus luteum versus ectopic demise.
[2023-04-18 14:46] LABS: Amorphous Sediment,Urine Rare /hpf; Appearance,Urine Cloudy (Clear); Bacteria,Urine Occasional /hpf; Bilirubin,Urine Negative (Negative); Blood,Urine Negative (Negative); Color,Urine Light Yellow; Glucose,Urine (UA) Negative (Negative); Ketones,Urine Negative (Negative); Leukocyte Esterase,Urine Large (Negative); Mucus,Urine Rare /hpf; Nitrite,Urine Negative (Negative); PH, Urine 6.5 (5.0-8.0); Protein,Urine Negative (Negative); RBC,Urine 1 /hpf (0-5); Specific Gravity,Urine 1.018 (1.001-1.035); Squamous Epithelial Cell,Urine 3 /hpf (0-4); Urobilinogen,Urine <2.0 mg/dL (<2.0); WBC,Urine 8 /hpf (0-5)
[2023-04-18 18:17] VITALS: BP 127/71; PULSE 85; RESP 18; TEMP 98.4
== END 2023-04-18 18:18 | disposition home or self-care (01) ==
LOC: EC 11:05
DX: O20.0 Threatened abortion (principal); O99.511 Diseases of the respiratory system complicating pregnancy, first trimester; J45.909 Unspecified asthma, uncomplicated; O99.351 Diseases of the nervous system complicating pregnancy, first trimester; G40.909 Epilepsy, unspecified, not intractable, without status epilepticus; Z3A.01 Less than 8 weeks gestation of pregnancy; Z79.899 Other long term (current) drug therapy; Z91.018 Allergy to other foods; Z88.1 Allergy status to other antibiotic agents; Z88.6 Allergy status to analgesic agent; Z91.048 Other nonmedicinal substance allergy status; Z91.040 Latex allergy status; Z91.041 Radiographic dye allergy status
CPT/HCPCS: 36415; 76801; 76817; 81001; 84702; 99284

== ENCOUNTER → 2023-04-20 | Outpatient (CLI) | payer OTHER | END | disposition home or self-care (01) | LOC: LABWHC1 08:08 | PROVIDERS: ATTEND Physician Assistant | DX: O20.0 Threatened abortion (principal); Z3A.00 Weeks of gestation of pregnancy not specified | CPT/HCPCS: 36415; 84702 ==

== ENCOUNTER 2023-05-30 18:11 | Emergency (ER) | payer OTHER ==
--- NOTE | 2023-05-30 18:23 | ED ---
Fall HPI - General Source: patient, RN notes reviewed <Alicia Christie - Last Filed: 05/30/23 18:23> <Simin Giraldo - Last Filed: 05/31/23 04:11> - General Stated Complaint: Fall at work, 13 weeks preg Time Seen by Provider: 05/30/23 18:23 - History of Present Illness Initial Comments: Patient is a 28-year-old female presented to ER with chief complaint of a fall. Patient is 13 weeks .'s patient states she fell at work and is now endorsing tailbone pain. Patient sent by urgent care for evaluation. (Alicia Christie) 28-year-old female presenting for evaluation post fall. Patient states that she slipped on ice at work and fell onto her backside. She is currently 13 weeks . She is now complaining of tailbone pain. She denies any pelvic pain or vaginal bleeding. No loss of bowel or bladder control or saddle paresthesia. No numbness tingling or weakness. Injury to the extremities. (Simin Giraldo) - Related Data Home Medications Medication Instructions Recorded Confirmed Cetirizine HCl 10 mg PO HS 06/05/21 01/08/22 Bto-Blxj-Opfbw Acid 1 cap PO DAILY 06/05/21 01/08/22 [-U Capsule (formulary)] lamoTRIgine [LaMICtal] 100 mg PO HS 06/05/21 01/08/22 Omeprazole 20 mg PO HS 01/08/22 01/08/22 Previous Rx's Medication Instructions Recorded Albuterol Inhaler [Ventolin Hfa 2 puff INHALATION RT-Q6H PRN #1 04/19/21 Inhaler] each Budesonide/Formoterol Fumarate 2 puff INHALATION RT-BID #1 each 04/19/21 [Symbicort 160-4.5 Mcg Inhaler] hydrOXYzine pamoate [Vistaril] 25 mg PO BID PRN 30 Days cap 04/19/21 dexAMETHasone [Decadron] 6 mg PO DAILY 9 Days #9 tablet 04/16/22 HYDROcodone/APAP 7.5-325MG [[place] 1 tab PO Q6HR PRN 3 Days #18 tab 04/30/22 7.5-325] Allergies Allergy/AdvReac Type Severity Reaction Status Date / Time tomato Allergy Severe Anaphylaxis Verified 05/30/23 18:55 pollen extracts Allergy Mild Unknown Verified 05/30/23 18:55 azithromycin Allergy Nausea & Verified 05/30/23 18:55 Vomiting banana Allergy Nausea & Verified 05/30/23 18:55 Vomiting ciprofloxacin [From Cipro] Allergy Rash/Hives Verified 05/30/23 18:55 coconut Allergy Anaphylaxis Verified 05/30/23 18:55 coconut oil Allergy Anaphylaxis Verified 05/30/23 18:55 ibuprofen [From Motrin] Allergy Anaphylaxis Verified 05/30/23 18:55 Iodinated Contrast Media Allergy Rash/Hives Verified 05/30/23 18:55 [Iodinated Contrast- Oral and IV Dye] latex Allergy Rash/Hives Verified 05/30/23 18:55 mold Allergy Unknown Verified 05/30/23 18:55 Mushroom Allergy Anaphylaxis Verified 05/30/23 18:55 orange Allergy Nausea & Verified 05/30/23 18:55 Vomiting orange juice [Tilden] Allergy Nausea & Verified 05/30/23 18:55 Vomiting cephalexin [From Keflex] AdvReac Rash/Hives Verified 05/30/23 18:55 Review of Systems ROS Other: All systems not noted in ROS Statement are negative. <Alicia Christie - Last Filed: 05/30/23 18:23> ROS Other: All systems not noted in ROS Statement are negative. <Simin Giraldo - Last Filed: 05/31/23 04:11> ROS Statement: Those systems with pertinent positive or pertinent negative responses have been documented in the HPI. Past Medical History Past Medical History: Asthma, Blood Disorder, Cancer, Hearing Disorder / Deafness, Seizure Disorder, Skin Disorder Additional Past Medical History / Comment(s): anemia, lymphatic ca, DOUGLAS, ECZEMA, LAST SEIZURE 10 YEARS-PHOTO SENSITIVITY SEIZURE, PAIN ON RLQ WITH DIARRHEA WITH BLOOD IN STOOL, diverticulitis History of Any Multi-Drug Resistant Organisms: MRSA Date of last positivie culture/infection: 2014 MDRO Source:: chest Past Surgical History: Adenoidectomy, Breast Surgery, Section, Cholecystectomy, Ear Surgery, Orthopedic Surgery Additional Past Surgical History / Comment(s): BILAT breast reduction, tubes in ears, ORIF RT ELBOW, HAND AND WRIST, RE OPENING OF GALLBLADDER IN APR AND JUNE 2020, covid X2 Past Anesthesia/Blood Transfusion Reactions: Postoperative Nausea & Vomiting (PONV) Past Psychological History: Anxiety, Bipolar, Depression, PTSD Smoking Status: Never smoker Past Alcohol Use History: None Reported Past Drug Use History: None Reported - Past Family History Mother Family Medical History: Coronary Artery Disease (CAD), Deep Vein Thrombosis (DVT), Hyperlipidemia <Alicia Christie - Last Filed: 05/30/23 18:23> General Exam <Alicia Christie - Last Filed: 05/30/23 18:23> Limitations: no limitations General appearance: alert, in no apparent distress Head exam: Present: atraumatic, normocephalic Eye exam: Present: normal appearance Neck exam: Present: normal inspection Respiratory exam: Present: normal lung sounds bilaterally. Absent: respiratory distress, wheezes, rales, rhonchi, stridor Cardiovascular Exam: Present: regular rate, normal rhythm, normal heart sounds. Absent: systolic murmur, diastolic murmur, rubs, gallop, clicks GI/Abdominal exam: Present: soft. Absent: distended, tenderness, guarding, rebound, rigid Extremities exam: Present: normal inspection, full ROM Back exam: Present: normal inspection, tenderness (Tenderness over the coccyx), paraspinal tenderness (Patient has some paraspinal muscle tenderness to the left side of the lumbar spine.) Neurological exam: Present: alert, oriented X3 Psychiatric exam: Present: normal affect, normal mood Skin exam: Present: warm, dry <Simin Giraldo - Last Filed: 05/31/23 04:11> - General Exam Comments Initial Comments: Visual Physical Exam Vital signs reviewed General: Well-appearing, nontoxic, no acute distress. Head: Normocephalic, atraumatic Eyes: PERRLA, EOMI ENT: Airway patent Chest: Nonlabored breathing Skin: No visual rash, normal skin tone Neuro: Alert and oriented 3 Musculoskeletal: No gross abnormalities (Alicia Christie) Course Vital Signs 05/30/23 05/30/23 18:54 21:06 Temperature 98.7 F Pulse Rate 88 Respiratory 18 18 Rate Blood Pressure 123/77 O2 Sat by Pulse 98 Oximetry Medical Decision Making <Alicia Christie - Last Filed: 05/30/23 18:23> <Simin Giraldo - Last Filed: 05/31/23 04:11> - Medical Decision Making I performed the quick note portion of the exam. Electronically signed by Alicia Christie PA-C (Alicia Christie) 28-year-old female presenting with chief complaint of tailbone pain. Patient had a slip and fall on the ice at work today. This happened around 1:30-2:00pm. She landed on her backside. No head injury loss of consciousness or use of blood thinners. Patient is currently 13 weeks . She is having no pelvic pain or vaginal bleeding. She is complaining of severe tailbone pain. I explained to the patient the risks of radiation exposure in , including severe mutation or loss of . Shared decision making is utilized. Despite risks patient requests x-ray. She is of sound mind and body and able to make her own decision. the patient is having no pelvic pain or vaginal bleeding, I do not believe that we need an ultrasound at this time. Shared decision making is utilized, patient states that she is okay with not obtaining an ultrasound today, she has 1 scheduled for next week. X-ray shows chronic deformity relating to a transitional lumbosacral segment, denoted as a particularly lumbarized S1. No displaced or angulated tailbone fracture is seen. Patient is educated on today's findings. Educated on supportive management at home. She is instructed to take Tylenol for pain. Patient states that even after taking Tylenol today she is having severe pain. Shared decision making is utilized. I explained to the patient the risk versus benefit of Tylenol 3 during . Given that the patient is early on in the risk is lower. Patient requests Tylenol 3 for pain. She is provided with a starter pack of Tylenol 3. She is instructed to follow-up with her RESIDENT CARE AIDE. Follow-up with PCP and orthopedics. Discharged home. Follow-up with PCP. Report back to ER with any new or worsening symptoms. Discussed return parameters and answered all questions. Patient conveyed verbal understanding and agreed to the plan. I discussed this case in detail with my attending Dr. Jeffries Was pt. sent in by a medical professional or institution (, [facility], APPOINTMENT SETTER, urgent care, hospital, or snf...) When possible be specific @ -No Did you speak to anyone other than the patient for history (EMS, parent, family, police, friend...)? What history was obtained from this source @ -No Did you review nursing and triage notes (agree or disagree)? Why? @ -I reviewed and agree with nursing and triage notes Were old charts reviewed (outside hosp., previous admission, EMS record, old EKG, old radiological studies, urgent care reports/EKG's, snf records)? Report findings @ -No old charts were reviewed Differential Diagnosis (chest pain, altered mental status, abdominal pain women, abdominal pain men, vaginal bleeding, weakness, fever, dyspnea, syncope, headache, dizziness, GI bleed, back pain, seizure, CVA, palpatations, mental health, musculoskeletal)? @ - MDM Differential Back Pain: Strain, zoster, cauda equina syndrome, epidural abscess, vertebral osteomyelitis, discitis, fracture, subluxation, disc herniation, DJD, spinal stenosis, dissection, AAA, pancreatitis, peptic ulcer disease, pyelonephritis, kidney stone this is not meant to be an all-inclusive list. EKG interpreted by me (3pts min.). @ -As above X-rays interpreted by me (1pt min.). @ -X-ray shows chronic deformity relating to a transitional lumbosacral segment, denoted as a particularly lumbarized S1. The L5 vertebral body is small, which posteriorly, and shows bilateral pars defects. Consider neurosurgery referral for further evaluation especially if painful. Otherwise no displaced or angulated tailbone fracture seen CT interpreted by me (1pt min.). @ -None done U/S interpreted by me (1pt. min.). @ -None done What testing was considered but not performed or refused? (CT, X-rays, U/S, labs)? Why? @ -None What meds were considered but not given or refused? Why? @ -None Did you discuss the management of the patient with other professionals (professionals i.e. , PA, APPOINTMENT SETTER, lab, RT, psych nurse, social media executive, skiver operator, teacher, vessel traffic officer, special education case manager)? Give summary @ -No Was smoking cessation discussed for >3mins.? @ -No Was critical care preformed (if so, how long)? @ -No Were there social determinants of health that impacted care today? How? (Homelessness, low income, unemployed, alcoholism, drug addiction, transportation, low edu. Level, literacy, decrease access to med. care, [facility], rehab)? @ -No Was there de-escalation of care discussed even if they declined (Discuss DNR or withdrawal of care, Hospice)? DNR status @ -No What co-morbidities impacted this encounter? (DM, HTN, Smoking, COPD, CAD, Cancer, CVA, ARF, Chemo, Hep., AIDS, mental health diagnosis, sleep apnea, morbid obesity)? @ -None Was patient admitted / discharged? Hospital course, mention meds given and route, prescriptions, significant lab abnormalities, going to OR and other pertinent info. @ -Discharge home, see above for details Undiagnosed new problem with uncertain prognosis? @ -No Drug Therapy requiring intensive monitoring for toxicity (Heparin, Nitro, Insulin, Cardizem)? @ -No Were any procedures done? @ -No Diagnosis/symptom? @ -Fall, back pain Acute, or Chronic, or Acute on Chronic? @ -Acute Uncomplicated (without systemic symptoms) or Complicated (systemic symptoms)? @ -Uncomplicated Side effects of treatment? @ -No Exacerbation, Progression, or Severe Exacerbation? @ -No Poses a threat to life or bodily function? How? (Chest pain, [place], [place], pneumonia, PE, COPD, DKA, ARF, appy, cholecystitis, CVA, Diverticulitis, Homicidal, Suicidal, threat to staff... and all critical care pts) @ -No (Simin Giraldo) Disposition <Alicia Christie - Last Filed: 05/30/23 18:23> Is patient prescribed a controlled substance at d/c from ED?: No Time of Disposition: 20:56 <Simin Giraldo - Last Filed: 05/31/23 04:11> Clinical Impression: Fall, Mechanical back pain Disposition: HOME SELF-CARE Condition: Good Instructions (If sedation given, give patient instructions): Acute Low Back Pain (ED), at 11 to 14 Weeks (ED) Additional Instructions: Follow-up with PCP, orthopedics, and RESIDENT CARE AIDE. Report back to ER with any new or worsening symptoms. Take Tylenol as needed for pain control. Referrals: Yandy Dsouza MD [Primary Care Provider] - 1-2 days Brianne Morgan DO [Doctor of Osteopathic Medicine] - 1-2 days Audie Cortez DO [Doctor of Osteopathic Medicine] - 1-2 days
[2023-05-30 19:20] VITALS: BP 123/77; PULSE 88; RESP 18; TEMP 98.7
[2023-05-30] MEDS: ACETAMINOPHEN TAB 325 MG TAB PO STA (19:44)
--- NOTE | 2023-05-30 20:18 | XR ---
EXAMINATION TYPE: XR sacrum coccyx DATE OF EXAM: 05/30/2023 COMPARISON: Correlation CT 05/16/2021 HISTORY: 28-year-old female with fall and pain TECHNIQUE: 3 views FINDINGS: There is a transitional lumbosacral segment which appears to be a partially lumbarized S1. The L5 segment is small and wedged posteriorly. Patient's prior CT shows bilateral L5 pars defects. T here also appears to be some mild asymmetric degenerative change at the right SI joint. Smooth deline ation to the arcuate lines of the sacrum. No displaced or angulated sacral or coccygeal fracture is seen. IMPRESSION: 1. Chronic deformity relating to a transitional lumbosacral segment, denoted as a partially lumbarize d S1. The L5 vertebral body is small, wedged posteriorly, and shows bilateral pars defects. Consider neurosurgery referral for further evaluation especially if painful. 2. Otherwise, no displaced or angulated tailbone fracture is seen.
[2023-05-30] MEDS: ACET/COD 300 MG/30 MG STARTER PACK 6 TAB BTL PO STA (20:58)
== END 2023-05-30 21:07 | disposition home or self-care (01) ==
LOC: EC 18:11
DX: O26.891 Other specified pregnancy related conditions, first trimester (principal); M54.9 Dorsalgia, unspecified; O99.511 Diseases of the respiratory system complicating pregnancy, first trimester; J45.909 Unspecified asthma, uncomplicated; Z86.59 Personal history of other mental and behavioral disorders; Z79.899 Other long term (current) drug therapy; Z91.018 Allergy to other foods; Z91.040 Latex allergy status; Z88.5 Allergy status to narcotic agent; Z88.8 Allergy status to other drugs, medicaments and biological substances; Z3A.13 13 weeks gestation of pregnancy; W00.0XXA Fall on same level due to ice and snow, initial encounter
CPT/HCPCS: 72220; 99284

== ENCOUNTER 2023-06-22 08:12 | Emergency (ER) | payer OTHER ==
[2023-06-22 08:34] VITALS: RESP 18
--- NOTE | 2023-06-22 08:49 | ED ---
General Adult HPI - General Chief complaint: Nausea/Vomiting/Diarrhea Stated complaint: Nausea/Dizziness Time Seen by Provider: 06/22/23 08:19 Source: patient, RN notes reviewed Mode of arrival: ambulatory Limitations: no limitations - History of Present Illness Initial comments: 28-year-old female presents emergency department with chief complaint of nausea vomiting diarrhea. Patient states symptoms started overnight. Patient states she is unable to keep any down she states she still very nauseated. Patient states that she is currently 15 weeks denies any lower abdominal pain or cramping no vaginal bleeding. She states she has diffuse abdominal discomfort primarily in the upper abdomen related to her vomiting. Denies chest pain states that she is headache some bodyaches. Patient states she had a low- grade fever at home. Patient states she did have a syncopal episode at home after getting up during her vomiting episodes. - Related Data Home Medications Medication Instructions Recorded Confirmed Cetirizine HCl 10 mg PO HS 06/05/21 01/08/22 [id number] Acid 1 cap PO DAILY 06/05/21 01/08/22 [-U Capsule (formulary)] lamoTRIgine [LaMICtal] 100 mg PO HS 06/05/21 01/08/22 Omeprazole 20 mg PO HS 01/08/22 01/08/22 Previous Rx's Medication Instructions Recorded Albuterol Inhaler [Ventolin Hfa 2 puff INHALATION RT-Q6H PRN #1 04/19/21 Inhaler] each Budesonide/Formoterol Fumarate 2 puff INHALATION RT-BID #1 each 04/19/21 [Symbicort 160-4.5 Mcg Inhaler] hydrOXYzine pamoate [Vistaril] 25 mg PO BID PRN 30 Days cap 04/19/21 dexAMETHasone [Decadron] 6 mg PO DAILY 9 Days #9 tablet 04/16/22 HYDROcodone/APAP 7.5-325MG [[place] 1 tab PO Q6HR PRN 3 Days #18 tab 04/30/22 7.5-325] Ondansetron Odt [Zofran Odt] 4 mg PO Q8HR PRN #10 tab 06/22/23 Allergies Allergy/AdvReac Type Severity Reaction Status Date / Time tomato Allergy Severe Anaphylaxis Verified 06/22/23 08:27 pollen extracts Allergy Mild Unknown Verified 06/22/23 08:27 azithromycin Allergy Nausea & Verified 06/22/23 08:27 Vomiting banana Allergy Nausea & Verified 06/22/23 08:27 Vomiting ciprofloxacin [From Cipro] Allergy Rash/Hives Verified 06/22/23 08:27 coconut Allergy Anaphylaxis Verified 06/22/23 08:27 coconut oil Allergy Anaphylaxis Verified 06/22/23 08:27 ibuprofen [From Motrin] Allergy Anaphylaxis Verified 06/22/23 08:27 Iodinated Contrast Media Allergy Rash/Hives Verified 06/22/23 08:27 [Iodinated Contrast- Oral and IV Dye] latex Allergy Rash/Hives Verified 06/22/23 08:27 mold Allergy Unknown Verified 06/22/23 08:27 Mushroom Allergy Anaphylaxis Verified 06/22/23 08:27 orange Allergy Nausea & Verified 06/22/23 08:27 Vomiting orange juice [[place]] Allergy Nausea & Verified 06/22/23 08:27 Vomiting cephalexin [From Keflex] AdvReac Rash/Hives Verified 06/22/23 08:27 Review of Systems ROS Statement: Those systems with pertinent positive or pertinent negative responses have been documented in the HPI. ROS Other: All systems not noted in ROS Statement are negative. Past Medical History Past Medical History: Asthma, Blood Disorder, Cancer, Hearing Disorder / Deafness, Seizure Disorder, Skin Disorder Additional Past Medical History / Comment(s): anemia, lymphatic ca, MARSHALL, ECZEMA, LAST SEIZURE 10 YEARS-PHOTO SENSITIVITY SEIZURE, PAIN ON RLQ WITH DIARRHEA WITH BLOOD IN STOOL, diverticulitis History of Any Multi-Drug Resistant Organisms: MRSA Date of last positivie culture/infection: 2014 MDRO Source:: chest Past Surgical History: Adenoidectomy, Breast Surgery, Section, Chol ecystectomy, Ear Surgery, Orthopedic Surgery Additional Past Surgical History / Comment(s): BILAT breast reduction, tubes in ears, ORIF RT ELBOW, HAND AND WRIST, RE OPENING OF GALLBLADDER IN APR AND JUNE 2020, covid X2 Past Anesthesia/Blood Transfusion Reactions: Postoperative Nausea & Vomiting (PONV) Past Psychological History: Anxiety, Bipolar, Depression, PTSD Smoking Status: Never smoker Past Alcohol Use History: None Reported Past Drug Use History: None Reported - Past Family History Mother Family Medical History: Coronary Artery Disease (CAD), Deep Vein Thrombosis (DVT), Hyperlipidemia General Exam Limitations: no limitations General appearance: alert, in no apparent distress Head exam: Present: atraumatic, normocephalic, normal inspection Eye exam: Present: normal appearance, PERRL, EOMI. Absent: scleral icterus, conjunctival injection, periorbital swelling ENT exam: Present: normal oropharynx, mucous membranes dry. Absent: normal exam, mucous membranes moist Neck exam: Present: normal inspection, full ROM. Absent: tenderness, meningismus, lymphadenopathy Respiratory exam: Present: normal lung sounds bilaterally. Absent: respiratory distress, wheezes, rales, rhonchi, stridor Cardiovascular Exam: Present: regular rate, normal rhythm, normal heart sounds. Absent: systolic murmur, diastolic murmur, rubs, gallop, clicks GI/Abdominal exam: Present: soft, tenderness (Mild upper abdominal), normal bowel sounds. Absent: distended, guarding, rebound, rigid Back exam: Absent: CVA tenderness (R), CVA tenderness (L) Course Vital Signs 06/22/23 06/22/23 06/22/23 08:21 09:43 10:27 Temperature 98.0 F 98.4 F Pulse Rate 98 90 90 Respiratory 18 18 18 Rate Blood Pressure 133/89 102/55 102/65 O2 Sat by Pulse 99 96 98 Oximetry 06/22/23 06/22/23 12:22 12:49 Temperature 98.1 F Pulse Rate 88 Respiratory 18 Rate Blood Pressure 96/53 O2 Sat by Pulse 98 Oximetry EKG Findings - EKG Comments: EKG Findings:: EKG performed at 9: 06 sinus rhythm with a rate of 88 AL 156 QRS 95 QT/QTc 352/398 - EKG Results: EKG: interpreted by ESTRELLITA Medical Decision Making - Medical Decision Making Was pt. sent in by a medical professional or institution (, PA, HYDRAULIC ROCK DRILL OPERATOR, urgent care, hospital, or group home...) When possible be specific @ -No Did you speak to anyone other than the patient for history (EMS, parent, family, police, friend...)? What history was obtained from this source @ -No Did you review nursing and triage notes (agree or disagree)? Why? @ -I reviewed and agree with nursing and triage notes Were old charts reviewed (outside hosp., previous admission, EMS record, old EKG, old radiological studies, urgent care reports/EKG's, group home records)? Report findings @ -No old charts were reviewed Differential Diagnosis (chest pain, altered mental status, abdominal pain women, abdominal pain men, vaginal bleeding, weakness, fever, dyspnea, syncope, headache, dizziness, GI bleed, back pain, seizure, CVA, palpatations, mental health, musculoskeletal)? @ -Differential Abdominal Pain Women: Appendicitis, Cholecystitis, diverticulosis, ischemic bowel, pancreatitis, hepatitis, UTI, gastroenteritis, AAA, incarcerated hernia, bowel obstruction, constipation, inflammatory bowel, hepatitis, peptic ulcer disease, splenic infarction, perforated viscus, vulvitis, ovarian torsion, PID, kidney stone, placenta abruption, this is not meant to be an all-inclusive list EKG interpreted by me (3pts min.). @ -As above X-rays interpreted by me (1pt min.). @ -None done CT interpreted by me (1pt min.). @ -None done U/S interpreted by me (1pt. min.). @ -Ultrasound OB limited heart rate 160 What testing was considered but not performed or refused? (CT, X-rays, U/S, labs)? Why? @ -None What meds were considered but not given or refused? Why? @ -None Did you discuss the management of the patient with other professionals (professionals i.e. , PA, HYDRAULIC ROCK DRILL OPERATOR, lab, RT, psych nurse, clinical social work therapist, alpaca farmer, teacher, airframe technical officer, casework manager)? Give summary @ -No Was smoking cessation discussed for >3mins.? @ -No Was critical care preformed (if so, how long)? @ -No Were there social determinants of health that impacted care today? How? (Homelessness, low income, unemployed, alcoholism, drug addiction, transportation, low edu. Level, literacy, decrease access to med. care, longterm, rehab)? @ -No Was there de-escalation of care discussed even if they declined (Discuss DNR or withdrawal of care, Hospice)? DNR status @ -No What co-morbidities impacted this encounter? (DM, HTN, Smoking, COPD, CAD, Cancer, CVA, ARF, Chemo, Hep., AIDS, mental health diagnosis, sleep apnea, morbid obesity)? @ -None Was patient admitted / discharged? Hospital course, mention meds given and route, prescriptions, significant lab abnormalities, going to OR and other pertinent info. @ -Discharge patient is well-hydrated, given antiemetics feels improved. Patient's laboratory studies reveal no significant findings other than mild dehydration patient discharged with nausea meds with follow-up with MATERIAL HANDLING WAREHOUSE SUPERVISOR. Undiagnosed new problem with uncertain prognosis? @ -No Drug Therapy requiring intensive monitoring for toxicity (Heparin, Nitro, Insulin, Cardizem)? @ -No Were any procedures done? @ -No Diagnosis/symptom? @ -Gastroenteritis, syncope Acute, or Chronic, or Acute on Chronic? @ -Acute Uncomplicated (without systemic symptoms) or Complicated (systemic symptoms)? @ -[Uncomplicated Side effects of treatment? @ -No Exacerbation, Progression, or Severe Exacerbation? @ -No Poses a threat to life or bodily function? How? (Chest pain, [place], DC, pneumonia, PE, COPD, DKA, ARF, appy, cholecystitis, CVA, Diverticulitis, Homicidal, Suicidal, threat to staff... and all critical care pts) @ -No - Lab Data Result diagrams: 06/22/23 08:57 06/22/23 08:57 Lab Results 06/22/23 06/22/23 06/22/23 Range/Units 08:57 08:57 08:57 WBC 9.2 (3.8-10.6) k/uL RBC 4.44 (3.80-5.40) m/uL Hgb 12.7 (11.4-16.0) gm/dL Hct 36.4 (34.0-46.0) % MCV 82.0 (80.0-100.0) fL MCH 28.7 (25.0-35.0) pg MCHC 35.0 (31.0-37.0) g/dL RDW 13.4 (11.5-15.5) % Plt Count 196 (150-450) k/uL MPV 8.2 Neutrophils % 81 % Lymphocytes % 11 % Monocytes % 4 % Eosinophils % 3 % Basophils % 1 % Neutrophils # 7.4 (1.3-7.7) k/uL Lymphocytes # 1.0 (1.0-4.8) k/uL Monocytes # 0.4 (0-1.0) k/uL Eosinophils # 0.2 (0-0.7) k/uL Basophils # 0.1 (0-0.2) k/uL Sodium 136 L (137-145) mmol/L Potassium 4.0 (3.5-5.1) mmol/L Chloride 110 H (98-107) mmol/L Carbon Dioxide 19 L (22-30) mmol/L Anion Gap 7 mmol/L BUN 9 (7-17) mg/dL Creatinine 0.47 L (0.52-1.04) mg/dL Est GFR (CKD-EPI)AfAm >90 (>60 ml/min/1.73 sqM) Est GFR (CKD-EPI)NonAf >90 (>60 ml/min/1.73 sqM) Glucose 111 H (74-99) mg/dL Calcium 8.5 (8.4-10.2) mg/dL Total Bilirubin 0.8 (0.2-1.3) mg/dL AST 19 (14-36) U/L ALT 13 (4-34) U/L Alkaline Phosphatase 73 (38-126) U/L Total Protein 6.4 (6.3-8.2) g/dL Albumin 3.5 (3.5-5.0) g/dL Lipase 36 (23-300) U/L Urine Color Urine Appearance (Clear) Urine pH (5.0-8.0) Ur Specific [place] (1.001-1.035) Urine Protein (Negative) Urine Glucose (UA) (Negative) Urine Ketones (Negative) Urine Blood (Negative) Urine Nitrite (Negative) Urine Bilirubin (Negative) Urine Urobilinogen (<2.0) mg/dL Ur Leukocyte Esterase (Negative) Urine RBC (0-5) /hpf Urine WBC (0-5) /hpf Ur Squamous Epith Cells (0-4) /hpf Urine Mucus (None) /hpf Influenza Type A (PCR) Not Detected (Not Detectd) Influenza Type B (PCR) Not Detected (Not Detectd) RSV (PCR) Not Detected (Not Detectd) SARS-CoV-2 (PCR) Not Detected (Not Detectd) 06/22/23 Range/Units 10:53 WBC (3.8-10.6) k/uL RBC (3.80-5.40) m/uL Hgb (11.4-16.0) gm/dL Hct (34.0-46.0) % MCV (80.0-100.0) fL MCH (25.0-35.0) pg MCHC (31.0-37.0) g/dL RDW (11.5-15.5) % Plt Count (150-450) k/uL MPV Neutrophils % % Lymphocytes % % Monocytes % % Eosinophils % % Basophils % % Neutrophils # (1.3-7.7) k/uL Lymphocytes # (1.0-4.8) k/uL Monocytes # (0-1.0) k/uL Eosinophils # (0-0.7) k/uL Basophils # (0-0.2) k/uL Sodium (137-145) mmol/L Potassium (3.5-5.1) mmol/L Chloride (98-107) mmol/L Carbon Dioxide (22-30) mmol/L Anion Gap mmol/L BUN (7-17) mg/dL Creatinine (0.52-1.04) mg/dL Est GFR (CKD-EPI)AfAm (>60 ml/min/1.73 sqM) Est GFR (CKD-EPI)NonAf (>60 ml/min/1.73 sqM) Glucose (74-99) mg/dL Calcium (8.4-10.2) mg/dL Total Bilirubin (0.2-1.3) mg/dL AST (14-36) U/L ALT (4-34) U/L Alkaline Phosphatase (38-126) U/L Total Protein (6.3-8.2) g/dL Albumin (3.5-5.0) g/dL Lipase (23-300) U/L Urine Color Light Yellow Urine Appearance Clear (Clear) Urine pH 5.5 (5.0-8.0) Ur Specific [place] 1.018 (1.001-1.035) Urine Protein Negative (Negative) Urine Glucose (UA) Negative (Negative) Urine Ketones 2+ H (Negative) Urine Blood Negative (Negative) Urine Nitrite Negative (Negative) Urine Bilirubin Negative (Negative) Urine Urobilinogen <2.0 (<2.0) mg/dL Ur Leukocyte Esterase Moderate H (Negative) Urine RBC <1 (0-5) /hpf Urine WBC 7 H (0-5) /hpf Ur Squamous Epith Cells 4 (0-4) /hpf Urine Mucus Rare H (None) /hpf Influenza Type A (PCR) (Not Detectd) Influenza Type B (PCR) (Not Detectd) RSV (PCR) (Not Detectd) SARS-CoV-2 (PCR) (Not Detectd) Disposition Clinical Impression: Gastroenteritis, Syncope Disposition: HOME SELF-CARE Condition: Stable Instructions (If sedation given, give patient instructions): Acute Nausea and Vomiting (ED) Additional Instructions: Please return to the Emergency Department if symptoms worsen or any other concerns. Prescriptions: Ondansetron Odt [Zofran Odt] 4 mg PO Q8HR PRN #10 tab PRN Reason: Nausea Is patient prescribed a controlled substance at d/c from ED?: No Referrals: Yandy Dsouza MD [Primary Care Provider] - 1-2 days Time of Disposition: 10:55
[2023-06-22] MEDS: SODIUM CHLORIDE 0.9% 2,000 ML IV STA (09:04)
[2023-06-22 09:05] LABS: Basophils # (A) 0.1 k/uL (0-0.2); Basophils % (A) 1 %; Eosinophils # (A) 0.2 k/uL (0-0.7); Eosinophils % (A) 3 %; HCT 36.4 % (34.0-46.0); HGB 12.7 gm/dL (11.4-16.0); Lymphocytes % (A) 11 %; MCH 28.7 pg (25.0-35.0); Mean Platelet Volume 8.2; Monocytes # (A) 0.4 k/uL (0-1.0); Monocytes % (A) 4 %; Neutrophils # (A) 7.4 k/uL (1.3-7.7); Neutrophils % (A) 81 %; Platelet Count 196 k/uL (150-450); RBC 4.44 m/uL (3.80-5.40); RDW 13.4 % (11.5-15.5); WBC 9.2 k/uL (3.8-10.6)
[2023-06-22] MEDS: METOCLOPRAMIDE 5 MG/ML 2 ML VIAL IVP STA (09:06)
[2023-06-22 09:26] LABS: ALT 13 U/L (4-34); AST 19 U/L (14-36); African American GFR (CKD) >90 (>60 ml/min/1.73 sqM); Albumin 3.5 g/dL (3.5-5.0); Alkaline Phosphatase 73 U/L (38-126); Anion Gap 7 mmol/L; Blood Urea Nitrogen 9 mg/dL (7-17); Calcium 8.5 mg/dL (8.4-10.2); Carbon Dioxide 19 mmol/L (22-30); Chloride 110 mmol/L (98-107); Glucose 111 mg/dL (74-99); Lipase 36 U/L (23-300); Non-African American GFR(CKD) >90 (>60 ml/min/1.73 sqM); Sodium 136 mmol/L (137-145); Total Bilirubin 0.8 mg/dL (0.2-1.3); Total Protein 6.4 g/dL (6.3-8.2)
--- NOTE | 2023-06-22 09:36 | US ---
EXAMINATION TYPE: US OB limited DATE OF EXAM: 06/22/2023 COMPARISON: US 04/18/2023 CLINICAL INDICATION: Female, 28 years old with history of heart tones; heart tones. Hx 2 miscarriages. Hx 2 C sections. EXAM PERFORMED: Transabdominal (TA) GESTATIONAL AGE / DATING Physician Established: (15 weeks/4 days) EDC: 12/10/2023 No growth performed on today?s study per ordering physician SURVEY HEART RATE: 160 bpm 2nd measure 161 bpm RHYTHM: Normal IMPRESSION: Satisfactory heart tones, measured at 160 BPM.
[2023-06-22] MEDS: ONDANSETRON 4 MG/2 ML VIAL IVP STA (09:42)
[2023-06-22 12:03] LABS: Appearance,Urine Clear (Clear); Bilirubin,Urine Negative (Negative); Blood,Urine Negative (Negative); Color,Urine Light Yellow; Glucose,Urine (UA) Negative (Negative); Ketones,Urine 2+ (Negative); Leukocyte Esterase,Urine Moderate (Negative); Mucus,Urine Rare /hpf; Nitrite,Urine Negative (Negative); PH, Urine 5.5 (5.0-8.0); Protein,Urine Negative (Negative); RBC,Urine <1 /hpf (0-5); Specific Gravity,Urine 1.018 (1.001-1.035); Squamous Epithelial Cell,Urine 4 /hpf (0-4); Urobilinogen,Urine <2.0 mg/dL (<2.0); WBC,Urine 7 /hpf (0-5)
[2023-06-22 12:48] VITALS: BP 96/53; PULSE 88
[2023-06-22 13:19] VITALS: TEMP 98.1
== END 2023-06-22 12:50 | disposition home or self-care (01) ==
LOC: EC 08:12
DX: O99.612 Diseases of the digestive system complicating pregnancy, second trimester (principal); K52.9 Noninfective gastroenteritis and colitis, unspecified; O26.892 Other specified pregnancy related conditions, second trimester; R55 Syncope and collapse; O99.512 Diseases of the respiratory system complicating pregnancy, second trimester; O99.342 Other mental disorders complicating pregnancy, second trimester; F31.9 Bipolar disorder, unspecified; F41.9 Anxiety disorder, unspecified; J45.909 Unspecified asthma, uncomplicated; Z79.899 Other long term (current) drug therapy; Z88.1 Allergy status to other antibiotic agents; Z88.6 Allergy status to analgesic agent; Z91.040 Latex allergy status; Z91.041 Radiographic dye allergy status; Z20.822 Contact with and (suspected) exposure to COVID-19; Z90.49 Acquired absence of other specified parts of digestive tract; Z86.16 Personal history of COVID-19; Z3A.15 15 weeks gestation of pregnancy
CPT/HCPCS: 36415; 93005; 80053; 83690; 85025; 81001; 87086; 87636; 76815; 99284; 96374; 96375; 96361 ×2; J2765; J2405

== ENCOUNTER 2023-08-09 22:04 | Emergency (ER) | payer OTHER ==
--- NOTE | 2023-08-09 22:22 | ED ---
Dizziness HPI - General Source: patient Mode of arrival: ambulatory Limitations: no limitations <Simin Giraldo - Last Filed: 08/09/23 22:21> <Brent Macias - Last Filed: 08/10/23 02:08> - General Chief Complaint: Syncope Stated Complaint: 22 weeks preg-Syncope Time Seen by Provider: 08/09/23 22:21 - History of Present Illness Initial Comments: 28-year-old female currently 22 weeks presenting with chief complaint of syncope. Patient has been experiencing nausea and vomiting throughout the day and had a syncopal episode while over the toilet this evening. No cramping or vaginal bleeding. States that her children had influenza last week. (Simin Giraldo) - Related Data Home Medications Medication Instructions Recorded Confirmed Cetirizine HCl 10 mg PO HS 06/05/21 01/08/22 Hwl-Yypo-Tblrg Acid 1 cap PO DAILY 06/05/21 01/08/22 [-U Capsule (formulary)] lamoTRIgine [LaMICtal] 100 mg PO HS 06/05/21 01/08/22 Omeprazole 20 mg PO HS 01/08/22 01/08/22 Previous Rx's Medication Instructions Recorded Albuterol Inhaler [Ventolin Hfa 2 puff INHALATION RT-Q6H PRN #1 04/19/21 Inhaler] each Budesonide/Formoterol Fumarate 2 puff INHALATION RT-BID #1 each 04/19/21 [Symbicort 160-4.5 Mcg Inhaler] hydrOXYzine pamoate [Vistaril] 25 mg PO BID PRN 30 Days cap 04/19/21 dexAMETHasone [Decadron] 6 mg PO DAILY 9 Days #9 tablet 04/16/22 HYDROcodone/APAP 7.5-325MG [[place] 1 tab PO Q6HR PRN 3 Days #18 tab 04/30/22 7.5-325] Ondansetron Odt [Zofran Odt] 4 mg PO Q8HR PRN #10 tab 06/22/23 Ondansetron Odt [Zofran ODT] 4 mg PO Q8HR PRN #10 tab 08/10/23 Allergies Allergy/AdvReac Type Severity Reaction Status Date / Time tomato Allergy Severe Anaphylaxis Verified 08/09/23 22:12 pollen extracts Allergy Mild Unknown Verified 08/09/23 22:12 azithromycin Allergy Nausea & Verified 08/09/23 22:12 Vomiting banana Allergy Nausea & Verified 08/09/23 22:12 Vomiting ciprofloxacin [From Cipro] Allergy Rash/Hives Verified 08/09/23 22:12 coconut Allergy Anaphylaxis Verified 08/09/23 22:12 coconut oil Allergy Anaphylaxis Verified 08/09/23 22:12 ibuprofen [From Motrin] Allergy Anaphylaxis Verified 08/09/23 22:12 Iodinated Contrast Media Allergy Rash/Hives Verified 08/09/23 22:12 [Iodinated Contrast- Oral and IV Dye] latex Allergy Rash/Hives Verified 08/09/23 22:12 mold Allergy Unknown Verified 08/09/23 22:12 Mushroom Allergy Anaphylaxis Verified 08/09/23 22:12 orange Allergy Nausea & Verified 08/09/23 22:12 Vomiting orange juice [[place]] Allergy Nausea & Verified 08/09/23 22:12 Vomiting cephalexin [From Keflex] AdvReac Rash/Hives Verified 08/09/23 22:12 Review of Systems ROS Other: All systems not noted in ROS Statement are negative. <Simin Giraldo - Last Filed: 08/09/23 22:21> ROS Other: All systems not noted in ROS Statement are negative. <Brent Macias - Last Filed: 08/10/23 02:08> ROS Statement: Those systems with pertinent positive or pertinent negative responses have been documented in the HPI. Past Medical History Past Medical History: Asthma, Blood Disorder, Cancer, Hearing Disorder / Deafness, Seizure Disorder, Skin Disorder Additional Past Medical History / Comment(s): anemia, lymphatic ca, [place] LAGOON, ECZEMA, LAST SEIZURE 10 YEARS-PHOTO SENSITIVITY SEIZURE, PAIN ON RLQ WITH DIARRHEA WITH BLOOD IN STOOL, diverticulitis History of Any Multi-Drug Resistant Organisms: MRSA Date of last positivie culture/infection: 2014 MDRO Source:: chest Past Surgical History: Adenoidectomy, Breast Surgery, Section, Cholecystectomy, Ear Surgery, Orthopedic Surgery Additional Past Surgical History / Comment(s): BILAT breast reduction, tubes in ears, ORIF RT ELBOW, HAND AND WRIST, RE OPENING OF GALLBLADDER IN APR AND JUNE 2020, covid X2 Past Anesthesia/Blood Transfusion Reactions: Postoperative Nausea & Vomiting (PONV) Past Psychological History: Anxiety, Bipolar, Depression, PTSD Smoking Status: Never smoker Past Alcohol Use History: None Reported Past Drug Use History: None Reported - Past Family History Mother Family Medical History: Coronary Artery Disease (CAD), Deep Vein Thrombosis (DVT), Hyperlipidemia <Simin Giraldo - Last Filed: 08/09/23 22:21> General Exam Limitations: no limitations <Simin Giraldo - Last Filed: 08/09/23 22:21> - General Exam Comments Initial Comments: Visual Physical Exam Vital signs reviewed General: Well-appearing, nontoxic, no acute distress. Head: Normocephalic, atraumatic Eyes: PERRLA, EOMI ENT: Airway patent Chest: Nonlabored breathing Skin: No visual rash, normal skin tone Neuro: Alert and oriented 3 Musculoskeletal: No gross abnormalities (Simin Giraldo) Course Vital Signs 08/09/23 08/10/23 22:05 01:06 Temperature 99.0 F 98.6 F Pulse Rate 110 H 99 Respiratory 20 18 Rate Blood Pressure 107/71 106/64 O2 Sat by Pulse 97 98 Oximetry EKG Findings - EKG Results: EKG: interpreted by ERMD, sinus rhythm, normal axis, normal QRS, normal ST/T EKG shows: tachycardia (Rate 103 bpm) <Brent Macias - Last Filed: 08/10/23 02:08> Medical Decision Making <Simin Giraldo - Last Filed: 08/09/23 22:21> - Lab Data Result diagrams: 08/09/23 22:54 08/09/23 23:03 <Brent Macias - Last Filed: 08/10/23 02:08> - Medical Decision Making I performed the quick note portion of this visit, electronically signed Simin Giraldo PA-C (Simin Giraldo) - Lab Data Lab Results 08/09/23 08/09/23 08/09/23 Range/Units 22:54 22:54 22:54 WBC 11.4 H (3.8-10.6) k/uL RBC 4.52 (3.80-5.40) m/uL Hgb 12.3 (11.4-16.0) gm/dL Hct 36.9 (34.0-46.0) % MCV 81.6 (80.0-100.0) fL MCH 27.1 (25.0-35.0) pg MCHC 33.2 (31.0-37.0) g/dL RDW 14.2 (11.5-15.5) % Plt Count 186 (150-450) k/uL MPV 8.8 Neutrophils % 83 % Lymphocytes % 10 % Monocytes % 4 % Eosinophils % 1 % Basophils % 0 % Neutrophils # 9.5 H (1.3-7.7) k/uL Lymphocytes # 1.1 (1.0-4.8) k/uL Monocytes # 0.5 (0-1.0) k/uL Eosinophils # 0.2 (0-0.7) k/uL Basophils # 0.1 (0-0.2) k/uL PT 9.9 L (10.0-12.5) sec INR 0.9 (<1.2) APTT 24.0 (22.0-30.0) sec Sodium (137-145) mmol/L Potassium (3.5-5.1) mmol/L Chloride (98-107) mmol/L Carbon Dioxide (22-30) mmol/L Anion Gap mmol/L BUN (7-17) mg/dL Creatinine (0.52-1.04) mg/dL Est GFR (CKD-EPI)AfAm (>60 ml/min/1.73 sqM) Est GFR (CKD-EPI)NonAf (>60 ml/min/1.73 sqM) Glucose (74-99) mg/dL POC Glucose (mg/dL) (70-110) mg/dL POC Glu Atomic Spectroscopist ID Calcium (8.4-10.2) mg/dL Total Bilirubin (0.2-1.3) mg/dL AST (14-36) U/L ALT (4-34) U/L Alkaline Phosphatase (38-126) U/L Troponin I <0.012 (0.000-0.034) ng/mL Total Protein (6.3-8.2) g/dL Albumin (3.5-5.0) g/dL Urine Color Urine Appearance (Clear) Urine pH (5.0-8.0) Ur Specific [place] (1.001-1.035) Urine Protein (Negative) Urine Glucose (UA) (Negative) Urine Ketones (Negative) Urine Blood (Negative) Urine Nitrite (Negative) Urine Bilirubin (Negative) Urine Urobilinogen (<2.0) mg/dL Ur Leukocyte Esterase (Negative) Urine RBC (0-5) /hpf Urine WBC (0-5) /hpf Ur Squamous Epith Cells (0-4) /hpf Urine Bacteria (None) /hpf Urine Mucus (None) /hpf Influenza Type A (PCR) (Not Detectd) Influenza Type B (PCR) (Not Detectd) RSV (PCR) (Not Detectd) SARS-CoV-2 (PCR) (Not Detectd) 08/09/23 08/10/23 08/10/23 Range/Units 23:03 00:18 00:19 WBC (3.8-10.6) k/uL RBC (3.80-5.40) m/uL Hgb (11.4-16.0) gm/dL Hct (34.0-46.0) % MCV (80.0-100.0) fL MCH (25.0-35.0) pg MCHC (31.0-37.0) g/dL RDW (11.5-15.5) % Plt Count (150-450) k/uL MPV Neutrophils % % Lymphocytes % % Monocytes % % Eosinophils % % Basophils % % Neutrophils # (1.3-7.7) k/uL Lymphocytes # (1.0-4.8) k/uL Monocytes # (0-1.0) k/uL Eosinophils # (0-0.7) k/uL Basophils # (0-0.2) k/uL PT (10.0-12.5) sec INR (<1.2) APTT (22.0-30.0) sec Sodium 135 L (137-145) mmol/L Potassium 3.9 (3.5-5.1) mmol/L Chloride 110 H (98-107) mmol/L Carbon Dioxide 19 L (22-30) mmol/L Anion Gap 6 mmol/L BUN 9 (7-17) mg/dL Creatinine 0.46 L (0.52-1.04) mg/dL Est GFR (CKD-EPI)AfAm >90 (>60 ml/min/1.73 sqM) Est GFR (CKD-EPI)NonAf >90 (>60 ml/min/1.73 sqM) Glucose 106 H (74-99) mg/dL POC Glucose (mg/dL) 117 H (70-110) mg/dL POC Glu Atomic Spectroscopist ID Pepper Guzman T Calcium 7.9 L (8.4-10.2) mg/dL Total Bilirubin 0.7 (0.2-1.3) mg/dL AST 18 (14-36) U/L ALT 12 (4-34) U/L Alkaline Phosphatase 80 (38-126) U/L Troponin I (0.000-0.034) ng/mL Total Protein 6.1 L (6.3-8.2) g/dL Albumin 3.3 L (3.5-5.0) g/dL Urine Color Yellow Urine Appearance Clear (Clear) Urine pH 6.0 (5.0-8.0) Ur Specific [place] 1.025 (1.001-1.035) Urine Protein Trace H (Negative) Urine Glucose (UA) Negative (Negative) Urine Ketones 2+ H (Negative) Urine Blood Negative (Negative) Urine Nitrite Negative (Negative) Urine Bilirubin Negative (Negative) Urine Urobilinogen 3.0 (<2.0) mg/dL Ur Leukocyte Esterase Small H (Negative) Urine RBC 1 (0-5) /hpf Urine WBC 6 H (0-5) /hpf Ur Squamous Epith Cells 3 (0-4) /hpf Urine Bacteria Rare H (None) /hpf Urine Mucus Occasional H (None) /hpf Influenza Type A (PCR) (Not Detectd) Influenza Type B (PCR) (Not Detectd) RSV (PCR) (Not Detectd) SARS-CoV-2 (PCR) (Not Detectd) 08/10/23 Range/Units 00:19 WBC (3.8-10.6) k/uL RBC (3.80-5.40) m/uL Hgb (11.4-16.0) gm/dL Hct (34.0-46.0) % MCV (80.0-100.0) fL MCH (25.0-35.0) pg MCHC (31.0-37.0) g/dL RDW (11.5-15.5) % Plt Count (150-450) k/uL MPV Neutrophils % % Lymphocytes % % Monocytes % % Eosinophils % % Basophils % % Neutrophils # (1.3-7.7) k/uL Lymphocytes # (1.0-4.8) k/uL Monocytes # (0-1.0) k/uL Eosinophils # (0-0.7) k/uL Basophils # (0-0.2) k/uL PT (10.0-12.5) sec INR (<1.2) APTT (22.0-30.0) sec Sodium (137-145) mmol/L Potassium (3.5-5.1) mmol/L Chloride (98-107) mmol/L Carbon Dioxide (22-30) mmol/L Anion Gap mmol/L BUN (7-17) mg/dL Creatinine (0.52-1.04) mg/dL Est GFR (CKD-EPI)AfAm (>60 ml/min/1.73 sqM) Est GFR (CKD-EPI)NonAf (>60 ml/min/1.73 sqM) Glucose (74-99) mg/dL POC Glucose (mg/dL) (70-110) mg/dL POC Glu Atomic Spectroscopist ID Calcium (8.4-10.2) mg/dL Total Bilirubin (0.2-1.3) mg/dL AST (14-36) U/L ALT (4-34) U/L Alkaline Phosphatase (38-126) U/L Troponin I (0.000-0.034) ng/mL Total Protein (6.3-8.2) g/dL Albumin (3.5-5.0) g/dL Urine Color Urine Appearance (Clear) Urine pH (5.0-8.0) Ur Specific [place] (1.001-1.035) Urine Protein (Negative) Urine Glucose (UA) (Negative) Urine Ketones (Negative) Urine Blood (Negative) Urine Nitrite (Negative) Urine Bilirubin (Negative) Urine Urobilinogen (<2.0) mg/dL Ur Leukocyte Esterase (Negative) Urine RBC (0-5) /hpf Urine WBC (0-5) /hpf Ur Squamous Epith Cells (0-4) /hpf Urine Bacteria (None) /hpf Urine Mucus (None) /hpf Influenza Type A (PCR) Not Detected (Not Detectd) Influenza Type B (PCR) Not Detected (Not Detectd) RSV (PCR) Not Detected (Not Detectd) SARS-CoV-2 (PCR) Not Detected (Not Detectd) Disposition <Simin Giraldo - Last Filed: 08/09/23 22:21> Is patient prescribed a controlled substance at d/c from ED?: No <Brent Macias - Last Filed: 08/10/23 02:08> Clinical Impression: Nausea & vomiting, Syncope Disposition: HOME SELF-CARE Condition: Good Instructions (If sedation given, give patient instructions): Gastroenteritis (ED), Syncope (ED) Prescriptions: Ondansetron Odt [Zofran ODT] 4 mg PO Q8HR PRN #10 tab PRN Reason: Nausea Referrals: Yandy Dsouza MD [Primary Care Provider] - 1-2 days
[2023-08-09 23:20] LABS: Basophils # (A) 0.1 k/uL (0-0.2); Basophils % (A) 0 %; Eosinophils # (A) 0.2 k/uL (0-0.7); Eosinophils % (A) 1 %; HCT 36.9 % (34.0-46.0); HGB 12.3 gm/dL (11.4-16.0); Lymphocytes # (A) 1.1 k/uL (1.0-4.8); Lymphocytes % (A) 10 %; MCH 27.1 pg (25.0-35.0); MCHC 33.2 g/dL (31.0-37.0); MCV 81.6 fL (80.0-100.0); Mean Platelet Volume 8.8; Monocytes # (A) 0.5 k/uL (0-1.0); Monocytes % (A) 4 %; Neutrophils # (A) 9.5 k/uL (1.3-7.7); Neutrophils % (A) 83 %; Platelet Count 186 k/uL (150-450); RBC 4.52 m/uL (3.80-5.40); RDW 14.2 % (11.5-15.5); WBC 11.4 k/uL (3.8-10.6)
[2023-08-09 23:25] LABS: INR 0.9 (<1.2)
[2023-08-09 23:26] LABS: Prothrombin Time 9.9 sec (10.0-12.5)
[2023-08-09 23:27] LABS: ALT 12 U/L (4-34); AST 18 U/L (14-36); African American GFR (CKD) >90 (>60 ml/min/1.73 sqM); Albumin 3.3 g/dL (3.5-5.0); Alkaline Phosphatase 80 U/L (38-126); Anion Gap 6 mmol/L; Blood Urea Nitrogen 9 mg/dL (7-17); Calcium 7.9 mg/dL (8.4-10.2); Carbon Dioxide 19 mmol/L (22-30); Chloride 110 mmol/L (98-107); Glucose 106 mg/dL (74-99); Non-African American GFR(CKD) >90 (>60 ml/min/1.73 sqM); Potassium 3.9 mmol/L (3.5-5.1); Sodium 135 mmol/L (137-145); Total Bilirubin 0.7 mg/dL (0.2-1.3); Total Protein 6.1 g/dL (6.3-8.2)
[2023-08-10 00:20] LABS: Glucose,Whole Blood 117 mg/dL (70-110)
[2023-08-10 00:41] LABS: Appearance,Urine Clear (Clear); Bacteria,Urine Rare /hpf; Bilirubin,Urine Negative (Negative); Blood,Urine Negative (Negative); Color,Urine Yellow; Glucose,Urine (UA) Negative (Negative); Ketones,Urine 2+ (Negative); Leukocyte Esterase,Urine Small (Negative); Mucus,Urine Occasional /hpf; Nitrite,Urine Negative (Negative); Protein,Urine Trace (Negative); RBC,Urine 1 /hpf (0-5); Specific Gravity,Urine 1.025 (1.001-1.035); Squamous Epithelial Cell,Urine 3 /hpf (0-4); WBC,Urine 6 /hpf (0-5)
[2023-08-10] MEDS: ONDANSETRON 4 MG/2 ML VIAL IVP STA (00:45)
[2023-08-10] MEDS: SODIUM CHLORIDE 0.9% 1,000 ML IV ONE (00:45)
[2023-08-10 01:27] VITALS: RESP 18
[2023-08-10 02:51] VITALS: BP 124/80; PULSE 101; TEMP 98.7
== END 2023-08-10 02:17 | disposition home or self-care (01) ==
LOC: EC 22:04
DX: O26.892 Other specified pregnancy related conditions, second trimester (principal); R55 Syncope and collapse; O21.9 Vomiting of pregnancy, unspecified; R00.0 Tachycardia, unspecified; Z11.52 Encounter for screening for COVID-19; Z3A.22 22 weeks gestation of pregnancy; Z91.018 Allergy to other foods; Z91.09 Other allergy status, other than to drugs and biological substances; Z88.1 Allergy status to other antibiotic agents; Z88.6 Allergy status to analgesic agent; Z91.041 Radiographic dye allergy status; Z91.040 Latex allergy status
CPT/HCPCS: 36415 ×2; 93005; 80053; 84484; 85025; 85610; 85730; 81001; 87636; 99284; 96374; 96361; J2405

== ENCOUNTER 2023-09-19 23:38 | Emergency (ER) | payer OTHER ==
[2023-09-19 23:49] VITALS: TEMP 97.7
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
--- NOTE | 2023-09-20 00:56 | XR ---
EXAMINATION TYPE: XR ribs LT w pa chest xray DATE OF EXAM: 09/20/2023 CLINICAL HISTORY: Trauma with pain. TECHNIQUE: Single frontal view of the chest is obtained. A frontal and oblique images of the left-opal ed ribs. COMPARISON: Prior chest x-ray May 20, 2022 FINDINGS: Low lung volumes redemonstrated. There is no focal air space opacity, pleural effusion, or pneumothorax seen. The cardiac silhouette size is stable and within normal limits. The osseous st ructures are intact. Dedicated images of the left sided ribs are suboptimal as some are of the right-sided ribs. No obviou s acute displaced rib fracture is present bilaterally. IMPRESSION: 1. Suboptimal study without acute displaced rib fracture. No acute cardiopulmonary process.
[2023-09-20 01:45] VITALS: BP 131/86; PULSE 102; RESP 20
== END 2023-09-20 01:20 | disposition home or self-care (01) ==
LOC: EC 23:38
DX: Z04.1 Encounter for examination and observation following transport accident (principal); Z91.018 Allergy to other foods; Z88.1 Allergy status to other antibiotic agents; Z88.6 Allergy status to analgesic agent; Z91.041 Radiographic dye allergy status; Z91.040 Latex allergy status; Z91.09 Other allergy status, other than to drugs and biological substances; Z86.16 Personal history of COVID-19
CPT/HCPCS: 99284

== ENCOUNTER 2023-09-20 01:56 | Outpatient (CLI) | payer OTHER ==
[2023-09-20 03:14] VITALS: BP 121/74; PULSE 116; RESP 16
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
== END 2023-09-20 02:41 | disposition home or self-care (01) ==
LOC: FBPOP 01:56
PROVIDERS: ATTEND Obstetrics & Gynecology
DX: O26.893 Other specified pregnancy related conditions, third trimester (principal); O24.419 Gestational diabetes mellitus in pregnancy, unspecified control; Z3A.29 29 weeks gestation of pregnancy; Z88.1 Allergy status to other antibiotic agents; Z91.018 Allergy to other foods; Z88.6 Allergy status to analgesic agent; Z91.09 Other allergy status, other than to drugs and biological substances; Z91.041 Radiographic dye allergy status; Z91.040 Latex allergy status
CPT/HCPCS: 59025; G0463; 99213

== ENCOUNTER 2024-02-21 07:12 | Day surgery (SDC) | payer OTHER ==
[2024-02-19 13:51] VITALS: BMI 31.6
[2024-02-21] MEDS: IV FLUID CONTINUATION 1,000 ML IV ONE (07:40)
[2024-02-21 07:47] VITALS: TEMP 96.9
[2024-02-21] MEDS: LACTATED RINGERS 1,000 ML IV SCH (07:56)
[2024-02-21 07:59] LABS: Glucose,Whole Blood 119 mg/dL (70-110)
[2024-02-21] MEDS ORDERED: PROPOFOL 10 MG/ML 20 ML VIAL IV ONE (08:26)
[2024-02-21] MEDS ORDERED: LIDOCAINE 2% (PF) 20 MG/ML 5 ML VIAL ONE (08:26)
--- NOTE | 2024-02-21 08:53 | P.PCN ---
Date of Procedure: 02/21/24 Procedure(s) Performed: Brief history: Patient is a pleasant 28-year-old white female scheduled for an elective upper endoscopy as well as colonoscopy as a part of evaluation of GERD and chronic diarrhea on and off for the last 4 years duration. She has intermittent episodes of diarrhea with 15-20 bowel movements daily. No blood or mucus in the stool stool. Denies any weight loss. Procedure performed: Esophagogastroduodenoscopy with biopsy Colonoscopy with biopsy Preoperative diagnosis: GERD Chronic diarrhea Anesthesia: MAC Procedure: After informed consent was obtained from the patient was brought into the endoscopy unit and IV sedation was administered by anesthesia under continuous monitoring. Initially upper endoscopy was done. The Olympus GF 160 video endoscope was inserted inserted into the mouth and esophagus intubated without any difficulty and was gradually advanced into the stomach and duodenum and carefully examined. The bulb and second part of the duodenum appeared normal. Biopsies were done from the duodenum to rule out celiac disease. The scope was then withdrawn into the stomach adequately insufflated with air and upon careful examination the antrum had mild gastritis and biopsies were done from this area. Mucosa of the body, cardia and fundus appeared normal. Small gastric polyps noted which were biopsied. The scope was then withdrawn into the esophagus. The GE junction was located at 40 cm to the incisors. It appeared regular with no erythema erosions or ulcerations. Rest of the esophagus appeared normal. Patient tolerated the procedure well. At this time the patient continued to remain sedation. Initial digital rectal examination was normal. Olympus CF 160 video colonoscope was then inserted into the rectum and gradually advanced to the cecum without any difficulty. Careful examination was performed as the scope was gradually being withdrawn. The prep was excellent. Terminal ileum was intubated in 20 cm visualized and appeared normal. Biopsies were done from the terminal ileum. The cecum, ascending colon, transverse colon, descending colon, sigmoid colon and rectum appeared normal. Biopsies were done from the ascending and descending colon rule out microscopic/collagenous colitis. Scattered sigmoid diverticulosis. Ret roflexion was performed in the rectum and no lesions were noted. Patient tolerated the procedure well. Impression: 1. Upper endoscopy revealed mild antral gastritis and multiple gastric polyps 2. Colonoscopy was within normal limits with no evidence of colorectal neoplasia except for scattered sigmoid diverticulosis Recommendations: Findings of this examination were discussed with the patient as well as her family. She was advised to follow-up with the biopsy results. Follow-up in the office in 2 weeks.
[2024-02-21 09:03] VITALS: RESP 16
[2024-02-21 09:10] VITALS: BP 122/61; PULSE 65
== END 2024-02-21 09:42 | disposition home or self-care (01) ==
LOC: ORWHC2ENDO 07:12
PROVIDERS: ATTEND Internal Medicine Gastroenterology
DX: K50.918 Crohn's disease, unspecified, with other complication (principal); D72.820 Lymphocytosis (symptomatic); K57.30 Diverticulosis of large intestine without perforation or abscess without bleeding; K21.9 Gastro-esophageal reflux disease without esophagitis; K29.50 Unspecified chronic gastritis without bleeding; K29.80 Duodenitis without bleeding; K31.7 Polyp of stomach and duodenum; R56.9 Unspecified convulsions; J45.909 Unspecified asthma, uncomplicated; H54.8 Legal blindness, as defined in USA; Z79.51 Long term (current) use of inhaled steroids; Z79.899 Other long term (current) drug therapy; Z88.1 Allergy status to other antibiotic agents
CPT/HCPCS: 81025; 45380; 43239; J2704; J2003; 88305